=== PATIENT | female | born 1950 | race Caucasian/White ===

== ENCOUNTER 2017-11-25 10:40 | Inpatient (IN) | payer MEDICARE, BC ==
[2017-11-25] VITALS (9 sets, daily range): BP systolic 111–141; BP diastolic 58–72; PULSE 80–84; RESP 16–22; TEMP 98.6–99.3; O2SAT 97–100
[2017-11-25] MEDS ORDERED: RESP: ALBUTEROL 2.5 MG/IPRATROPIUM 0.5 MG NEB (PRN) INH (16:45)
[2017-11-25] MEDS ORDERED: CHLORHEXIDINE GLUCONATE 2 % 1 PACK (2 CLOTHS) TOP PRN (16:45)
[2017-11-25] MEDS ORDERED: NURSING INFORMATION XX SCH (16:45)
--- NOTE | 2017-11-25 16:53 | HHI.HP ---
HPI Service Critical Care Medicine Primary Care Physician Unknown Admission Diagnosis Diagnosis: (1) Acute encephalopathy Diagnosis: Principal (2) Acute hypoxemic respiratory failure Diagnosis: Principal (3) COPD with acute exacerbation Diagnosis: Principal (4) CHF (congestive heart failure) Diagnosis: Principal (5) Sudural hygroma with probable acute hemorrhage Diagnosis: Principal (6) Coagulopathy Diagnosis: Principal Chief Complaint: Acute on chronic subdural hemorrhage/hygroma Acute encephalopathy Acute hypoxemic respiratory failure Travel History International Travel<30 Days: No Contact w/Intl Traveler <30 Da: No Traveled to Known Affected Are: No History of Present Illness Patient is a 67-year-old female with past medical history significant for COPD, end-stage renal disease, history of atrial fibrillation, history of upper extremity DVT, CHF, diabetes, who was brought to the [facility] emergency department for generalized weakness ongoing for a month and increasing shortness of breath. She underwent workup for altered mentation which showed bilateral chronic subdural hygromas with a possible acute hemorrhage. Transferred to [facility] for further evaluation and treatment with neurosurgery consultation. Apparently patient was hypoxemic at [place], ABG pH 7.296 PCO2 38.7, oxygen saturation was 84 and a PO2 of 54. Patient was placed on 50% nonrebreather for transportation. Also patient was on Coumadin until several days ago, for upper extremity DVT. Her INR was as high as 5 at that time and Coumadin was held. Once it came down to less than 1.7 patient was started on Eliquis. With CT showing SDH patient was given K Centra before transfer. I evaluated the patient immediately after arrival to the [place] ICU. Patient was somnolent but wakes up and follows basic commands, he was oriented only to person with some garbled speech. However patient appeared to be in moderate to severe respiratory distress with labored breathing. Evidently air entry was significantly diminished bilaterally indicating COPD exacerbation/CHF. She was quite tachypneic and patient was intubated and placed on mechanical ventilation. Patient also showed twitching of the bilateral upper extremity with jerking movements prior to intubation. I reviewed the CT of the head from [facility] with . And appears to show chronic subdural hygroma versus subdural hematoma, with some probable acute blood on the left side. Chest x-ray shows pulmonary vascular congestion. Patient will be started on emergency dialysis as have already contacted nephrology. After dialysis patient will be sent for a CT of the head and also CT of the neck as the patient has a large ecchymosis involving the anterior upper neck and anterior chin. Review of Systems ROS Limitations: Altered Mental Status Past Family Social History Allergies: Coded Allergies: Sulfa (Sulfonamide Antibiotics) (Verified Allergy, Unknown, 11/25/17) gabapentin (Verified Allergy, Unknown, 11/25/17) metoclopramide (Verified Allergy, Unknown, 11/25/17) morphine (Verified Allergy, Unknown, 11/25/17) Past Medical History COPD CHF End-stage renal disease on hemodialysis Upper extremity DVT Morbid obesity Type 2 diabetes Atrial fibrillation per transfer history Dyslipidemia Hypertension Past Surgical History Appendectomy Cholecystectomy Tonsillectomy Hysterectomy Dialysis access placement Reported Medications Lipitor Vitamin D3 Fish oil Requip Renvela Valsartan [place] Carvedilol Lasix Wellbutrin Lantus insulin Fosrenol Norvasc Lovaza Duloxetine Venlafaxine Lyrica Active Ordered Medications Reviewed Family History Unable to obtain at this time Social History Unable to obtain at this time Physical Exam Physical Exam GENERAL: 67 year old well-nourished, well-developed patient who is in obvious respiratory distress, tachypneic SKIN: Upper neck and chin with large ecchymoses. Chronic venous stasis changes in the lower extremities. HEAD: Atraumatic. Normocephalic. EYES: Pupils equal round and reactive. Extraocular motions intact. No scleral icterus. ENT: Nose without bleeding, airway patent. Dried blood on the lips, but none inside the mouth. Uvula midline. Airway patent. NECK: Trachea midline. Cannot appreciate JVD. Supple, nontender. Ecchymoses anterior upper neck. CARDIOVASCULAR: Tachycardic rate and rhythm without murmurs, gallops, or rubs. Heart sounds are distant RESPIRATORY: Breath sounds equal bilaterally but significantly diminished. Expiratory wheezes + GASTROINTESTINAL: Abdomen distended, tympanic. No hepato-splenomegaly, but exam limited by morbid obesity MUSCULOSKELETAL: Extremities Chronic venous stasis changes in the lower extremities. NEUROLOGICAL: Somnolent but wakes, able to state name, not oriented to time or place. Motor grossly within normal limits. Follows commands upper and lower extremities Imaging CT at [facility] showed small bilateral SDH Septic Shock Reassessment Septic shock perfusion: reassessment completed Caprini VTE Risk Assessment Caprini VTE Risk Assessment: Mod/High Risk (score >= 2) VTE Pharm Contraindication: Hemorrhage Caprini Risk Assessment Model Point Value = 1 Point Value = 2 Point Value = 3 Point Value = 5 Age 41-60 Minor surgery BMI > 25 kg/m2 Swollen legs Varicose veins or History of unexplained or recurrent spontaneous Oral contraceptives or hormone replacement Sepsis (< 1 month) Serious lung disease, including pneumonia (< 1 month) Abnormal pulmonary function Acute myocardial infarction Congestive heart failure (< 1 month) History of inflammatory bowel disease Medical patient at bed rest Age 61-74 Arthroscopic surgery Major open surgery (> 45 min) Laparoscopic surgery (> 45 min) Malignancy Confined to bed (> 72 hours) Immobilizing plaster cast Central venous access Age >= 75 History of VTE Family history of VTE Factor V Leiden Prothrombin [id number] Lupus anticoagulant Anticardiolipin antibodies Elevated serum homocysteine Heparin-induced thrombocytopenia Other congenital or acquired thrombophilia Stroke (< 1 month) Elective arthroplasty Hip, pelvis, or leg fracture Acute spinal cord injury (< 1 month) Prophylaxis Regimen Total Risk Factor Score Risk Level Prophylaxis Regimen 0-1 Low Early ambulation 2 Moderate Order ONE of the following: *Sequential Compression Device (SCD) *Heparin 5000 units SQ BID 3-4 Higher Order ONE of the following medications: *Heparin 5000 units SQ TID *Enoxaparin/Lovenox 40 mg SQ daily (WT < 150 kg, CrCl > 30 mL/min) *Enoxaparin/Lovenox 30 mg SQ daily (WT < 150 kg, CrCl > 10-29 mL/min) *Enoxaparin/Lovenox 30 mg SQ BID (WT < 150 kg, CrCl > 30 mL/min) AND/OR *Sequential Compression Device (SCD) 5 or more Highest Order ONE of the following medications: *Heparin 5000 units SQ TID (Preferred with Epidurals) *Enoxaparin/Lovenox 40 mg SQ daily (WT < 150 kg, CrCl > 30 mL/min) *Enoxaparin/Lovenox 30 mg SQ daily (WT < 150 kg, CrCl > 10-29 mL/min) *Enoxaparin/Lovenox 30 mg SQ BID (WT < 150 kg, CrCl > 30 mL/min) AND *Sequential Compression Device (SCD) Assessment and Plan Assessment and Plan NEURO: Chronic subdural hygroma versus subdural hemorrhage, with probable acute component Acute encephalopathy most likely metabolic History of depression -CT of the head reviewed with neurosurgery Dr. Luz -Repeat CT of the head and neck after HD completed -EEG to rule out seizures -Mental status change may be due to a combination of subdural hematoma and hypercapnia -Hold all her home antidepressants and pain medications -Target serum sodium more than 145-we will discuss with nephrology -Propofol for sedation and vent synchrony after intubation RESP: Acute hypoxemic and hypercapnic respiratory failure Acute COPD exacerbation History of COPD -Emergently intubated and placed on mechanical ventilation PRVC 16/550/10/100% -DuoNeb every 6 hours scheduled and as needed -Start IV Solu-Medrol 40 mg every 8 hours -Empiric antibiotics with cefepime, check sputum culture CV: CHF with exacerbation History of atrial fibrillation History of hypertension -Fluid removal with hemodialysis -Labetalol as needed to keep systolic blood pressure less than 150 -Repeat chest x-ray in a.m. -Hold home antihypertensives at this time GI: -N.p.o., IV famotidine -Insert NG tube : End-stage renal disease on hemodialysis -Nephrology consulted for stat Dialysis, Dr. Sutherland -Follow-up CBC and CMP after dialysis ID: -Check sputum culture, blood culture -Empiric cefepime for COPD exacerbation HEME: History of upper extremity DVT -Previously on Coumadin recently on Eliquis -Received K Centra due to subdural hemorrhage -Check PT PTT -Check ultrasound of upper and lower extremities ENDO: Type 2 diabetes -Electrolyte replacement per protocol -Sliding scale insulin PROPH: -Bilateral lower extremity SCDs/RAJAT. Chemical DVT prophylaxis contraindicated. IV famotidine LINES: -Patient has right femoral central line placed at [facility] CC time 82 min Code Status Full Discussed Condition With Melani Rosas MD November 25, 2017 16:53
[2017-11-25] MEDS ORDERED: ETOMIDATE 40 MG/20 ML VIAL ONE (17:03)
[2017-11-25] MEDS ORDERED: MIDAZOLAM HCL 5 MG/ML VIAL (1 ML) ONE ×2 (17:03→17:04)
[2017-11-25] MEDS ORDERED: ROCURONIUM INJ 50 MG/5 ML VIAL ONE (17:04)
[2017-11-25] MEDS ORDERED: PROPOFOL 500 MG/50 ML INJ 50 ML ONE (17:16)
--- NOTE | 2017-11-25 17:25 | PD.CONS ---
History of Present Illness Service Neurosurgery Consult Requested By [employer] Worker Reason for Consult Bilateral subdural hygromas versus chronic subdural hemorrhage Primary Care Physician Unknown Diagnoses: History of Present Illness 67-year-old female with past medical history significant for COPD, end-stage renal disease, history of atrial fibrillation, history of upper extremity DVT, CHF, diabetes who was brought to the [facility] emergency department for generalized weakness ongoing for a month and increasing shortness of breath. She underwent workup for altered mentation which showed bilateral chronic subdural hygromas with a possible acute hemorrhage. Request to transfer to [facility] for further evaluation and treatment with neurosurgery consultation. Apparently patient was hypoxemic on ABG pH 7.296 PCO2 38.7, oxygen saturation was 84 and a PO2 of 54. Patient was placed on 50% nonrebreather for transportation and equipment service lead intubated the patient after arrival due to respiratory distress. I was able to evaluate her prior to her intubation and she was opening her eyes and following commands. Review of Systems ROS Limitations: Altered Mental Status, Poor Historian Respiratory: COMPLAINS OF: Shortness of breath Cardiovascular: COMPLAINS OF: Lower Extremity Edema, Orthopnea Hematologic/lymphatic: COMPLAINS OF: Bruising Past Family Social History Allergies: Coded Allergies: Sulfa (Sulfonamide Antibiotics) (Verified Allergy, Unknown, 11/25/17) gabapentin (Verified Allergy, Unknown, 11/25/17) metoclopramide (Verified Allergy, Unknown, 11/25/17) morphine (Verified Allergy, Unknown, 11/25/17) Past Medical History COPD, end-stage renal disease, history of atrial fibrillation, history of upper extremity DVT, CHF, diabetes Past Surgical History Appendectomy Cholecystectomy Tonsillectomy Hysterectomy Dialysis access placement Reported Medications Lipitor Vitamin D3 Fish oil Requip Renvela Valsartan [place] Carvedilol Lasix Wellbutrin Lantus insulin Fosrenol Norvasc Lovaza Duloxetine Venlafaxine Lyrica Active Ordered Medications Current Medications Medications (Trade) Dose Ordered Sig/Joseph Route PRN Reason Start Time Stop Time Status Last Admin Dose Admin Famotidine (Pepcid Inj) 20 mg Q12HR IV PUSH 11/25/17 21:00 Albuterol/ Ipratropium (Duoneb Neb) 1 ampule Q6HR NEB INH 11/25/17 22:00 Albuterol/ Ipratropium (Duoneb Neb) 1 ampule Q2HR NEB PRN INH WHEEZING 11/25/17 16:45 Miscellaneous Information ([facility]) 1 Q361D XX 11/25/17 16:45 Chlorhexidine Gluconate (Chlorhexidine 2% Cloth) 3 pack Taper DAILY@04 TOP 11/26/17 04:00 11/22/18 03:59 Chlorhexidine Gluconate (Chlorhexidine 2% Cloth) 3 pack UNSCH PRN TOP HYGIENIC CARE 11/25/17 16:45 Chlorhexidine Gluconate (Peridex 0.12% Liq) 15 ml BID@08,20 MT 11/25/17 20:00 UNV Propofol 100 ml @ 0 mls/hr TITRATE PRN IV SEDATION 11/25/17 17:30 UNV Methylprednisolone Sodium Succinate (SoluMEDROL INJ) 40 mg Q8HR IV PUSH 11/25/17 18:00 UNV Cefepime HCl 1000 mg/Sodium Chloride 100 ml @ 200 mls/hr Q12H IV 11/25/17 18:00 UNV Insulin Aspart (NovoLOG SUPPLEMENTAL SCALE) 1 Q4H SQ 11/25/17 18:15 UNV Physical Exam Physical Exam GENERAL: This is a well-nourished, well-developed patient who is alert although in respiratory distress. SKIN: Ecchymosis in the anterior portion of the neck and chin along with the abdomen and chronic peripheral vascular changes in the lower extremities. HEAD: Atraumatic. Normocephalic. No temporal or scalp tenderness. EYES: Pupils equal round and reactive. Extraocular motions intact. No scleral icterus. No injection or drainage. ENT: Nose without bleeding, purulent drainage or septal hematoma. Dried bloody lips, throat without erythema, tonsillar hypertrophy or exudate. Uvula midline. Airway patent. NECK: Trachea midline. No JVD or lymphadenopathy. Supple, nontender, no meningeal signs. Extensive bruising in the anterior portion of the neck. CARDIOVASCULAR: Tachycardic without murmurs, gallops, or rubs. RESPIRATORY: Tachypneic. Breath sounds equal bilaterally. No wheezes, rales, or rhonchi. GASTROINTESTINAL: Abdomen soft but very distended. No guarding. MUSCULOSKELETAL: Extremities with significant edema and chronic ischemic changes in legs. Negative Homans sign bilaterally. NEUROLOGICAL: Awake and alert. Cranial nerves II through XII intact. Motor and sensory grossly within normal limits. Five out of 5 muscle strength in all muscle groups. Dysarthric speech. Assessment and Plan Assessment and Plan Bilateral small subdural hygromas versus chronic subdural hemorrhages. Recommend observation with a repeat CT scan of the head once medically stable. Discussed with equipment service lead Dr. Almanza. Nehemias Luz MD November 25, 2017 17:25
[2017-11-25] MEDS ORDERED: PROPOFOL 1000 MG/100 ML INJ 100 ML IV PRN (17:30)
--- NOTE | 2017-11-25 17:44 | PD.PROCEDR ---
Procedure Note Procedure Emergency intubation for altered mentation and acute hypoxemic and hypercarbic respiratory failure: INTUBATION: The patient was put in optimal position for the procedure. Rapid sequence intubation was initiated by me using 20 milligrams of etomidate IV and 10 milligrams of Versed IV. Direct laryngoscopy with MAC 4 blade grade 1 view single attempt. The patient was intubated with a 8.0 cuffed endotracheal tube. Tube placement was confirmed by visualization of the tube and balloon passing through the cords, capnometry and subsequent chest x-ray. Breath sounds were equal and well aerated bilaterally postintubation. No breath sounds over stomach. Patient tolerated procedure well. CXR pending Melani Almanza MD November 25, 2017 17:44
--- NOTE | 2017-11-25 17:53 | RADRPT ---
EXAM DATE/TIME: 11/25/2017 17:35 [facility] COMPARISON: No previous studies available for comparison. INDICATIONS : Respiratory distress. MEDICAL HISTORY : Dialysis. SURGICAL HISTORY : Dialysis catheter. ENCOUNTER: Initial ACUITY: 1 day PAIN SCORE: Non-responsive. LOCATION: Bilateral chest FINDINGS: The tip of the endotracheal tube is at the orifice of the right mainstem bronchus. Recommend pull lyubov k ET tube 3 to 4 cm. There is an NG tube in the stomach. No evidence of pneumothorax. Right-sided jami tral line in place. The lungs are grossly clear. Heart size is mildly enlarged. The bony structures a re grossly intact. CONCLUSION: 1. Tip of ET tube is in the orifice of the right mainstem bronchus. Pullback ET tube 3-4 cm. 2. No pneumothorax. Rogelio Cline MD on November 25, 2017 at 17:49 Board Certified Radiologist. This report was verified electronically.
[2017-11-25] MEDS: methylPREDNISolone SOD SUCC 40 MG/1 ML VIAL IV PUSH SCH (18:00)
[2017-11-25 18:40] LABS: HEMATOCRIT 27.5 % (35.0-46.0); HEMOGLOBIN 9.1 GM/DL (11.6-15.3); MEAN CELL VOLUME 95.1 FL (80.0-100.0); MEAN CORPUSCULAR HEMOGLOBIN 31.3 PG (27.0-34.0); MEAN CORPUSCULAR HGB CONC 32.9 % (32.0-36.0); MEAN PLATELET VOLUME 8.1 FL (7.0-11.0); PLATELET COUNT 241 TH/MM3 (150-450); RED CELL DISTRIBUTION WIDTH 15.2 % (11.6-17.2); WHITE BLOOD COUNT 11.9 TH/MM3 (4.0-11.0)
[2017-11-25 18:45] LABS: ALBUMIN 3.9 GM/DL (3.4-5.0); AST (GOT) 21 U/L (15-37); BICARBONATE 26.6 MEQ/L (21.0-32.0); BLOOD UREA NITROGEN 36 MG/DL (7-18); CALCIUM 8.3 MG/DL (8.5-10.1); CHLORIDE 103 MEQ/L (98-107); CREATININE 5.72 MG/DL (0.50-1.00); GLOMERULAR FILTRATION RATE 7 ML/MIN (>89); GLUCOSE,RANDOM 183 MG/DL (74-106); MAGNESIUM 2.3 MG/DL (1.5-2.5); SODIUM (NA) 142 MEQ/L (136-145)
[2017-11-25 18:46] LABS: ALT (GPT) 19 U/L (10-53)
[2017-11-25 18:49] LABS: ALKALINE PHOSPHATASE 79 U/L (45-117); TOTAL BILIRUBIN ADULT 0.5 MG/DL (0.2-1.0); TOTAL PROTEIN 6.7 GM/DL (6.4-8.2)
[2017-11-25 18:52] LABS: INTERNATIONAL NORMALIZED RATIO 1.4 RATIO; PROTHROMBIN TIME - PATIENT 14.3 SEC (9.8-11.6)
[2017-11-25] MEDS ORDERED: SODIUM CHLORIDE 0.9% FLUSH 10 ML FLUSH IV FLUSH PRN (19:30)
[2017-11-25] MEDS ORDERED: HEPARIN SODIUM - IV 10,000 UNITS/10 ML VIAL OTHER PRN (19:30)
[2017-11-25] MEDS ORDERED: HEPARIN SODIUM - IV 10,000 UNITS/10 ML VIAL IV FLUSH PRN (19:30)
[2017-11-25] MEDS ORDERED: MANNITOL 12.5 GM/50 ML VIAL IV PUSH PRN (19:30)
[2017-11-25] MEDS ORDERED: ALBUMIN 25% 25 GM/100 ML BAG IV PRN (19:30)
[2017-11-25] MEDS ORDERED: NITROGLYCERIN 0.4 MG SL 25 TABS/BTL SL PRN (19:30)
[2017-11-25] MEDS ORDERED: GELATIN 12 MM/7 MM FOAM TOPICAL PRN (19:30)
[2017-11-25] MEDS ORDERED: diphenhydrAMINE HCL 25 MG CAP PO PRN (19:30)
[2017-11-25] MEDS ORDERED: cloNIDine HCL 0.1 MG TAB PO PRN (19:30)
[2017-11-25] MEDS ORDERED: NS 250 ML IV PRN (19:30)
[2017-11-25] MEDS ORDERED: ACETAMINOPHEN 325 MG TAB PO PRN (19:30)
[2017-11-25] MEDS ORDERED: SODIUM CHLOR 0.9% 1000 ML OTHER PRN ×2 (19:30)
[2017-11-25] MEDS: INSULIN ASPART SUPPLEMENTAL SCALE SQ SCH (20:00)
[2017-11-25] MEDS: CEFEPIME INJ 1,000 MG in SODIUM CHLORIDE 0.9% INJ 100 ML IV SCH (20:00)
[2017-11-25] MEDS: CHLORHEXIDINE 0.12% (ORAL KIT) 15 ML CUP MT SCH (20:00)
[2017-11-25] MEDS: RESP: ALBUTEROL 2.5 MG/IPRATROPIUM 0.5 MG NEB (SCH) INH (20:08)
[2017-11-25] MEDS: FAMOTIDINE 20 MG/2 ML VIAL IV PUSH SCH (21:00)
[2017-11-25] MEDS ORDERED: fentaNYL 2,500 MCG/NS 250 ML IV PRN (21:45)
[2017-11-25] MEDS ORDERED: RASS Change Order XX ONE (21:45)
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
[2017-11-26] VITALS (16 sets, daily range): BP systolic 117–161; BP diastolic 56–77; PULSE 67–92; RESP 16–32; TEMP 98.9–99.8; O2SAT 96–100
[2017-11-26] MEDS: RESP: ALBUTEROL 2.5 MG/IPRATROPIUM 0.5 MG NEB (SCH) INH ×4 (02:20→21:50)
[2017-11-26] MEDS: methylPREDNISolone SOD SUCC 40 MG/1 ML VIAL IV PUSH SCH ×3 (02:48→18:33)
[2017-11-26] MEDS: PROPOFOL 1000 MG/100 ML INJ 100 ML IV PRN ×3 (02:48→09:12)
[2017-11-26 03:33] LABS: AUTOMATED NEUTROPHIL # 7.6 TH/MM3 (1.8-7.7); BASOPHIL % 0.3 % (0.0-2.0); HEMATOCRIT 26.3 % (35.0-46.0); LYMPH % 5.3 % (9.0-44.0); LYMPHOCYTE # 0.4 TH/MM3 (1.0-4.8); MEAN CELL VOLUME 94.6 FL (80.0-100.0); MEAN CORPUSCULAR HEMOGLOBIN 32.5 PG (27.0-34.0); MEAN CORPUSCULAR HGB CONC 34.4 % (32.0-36.0); MEAN PLATELET VOLUME 8.2 FL (7.0-11.0); MONO % 2.5 % (0.0-8.0); MONOCYTE # 0.2 TH/MM3 (0-0.9); NEUT % 91.9 % (16.0-70.0); PLATELET COUNT 207 TH/MM3 (150-450); RED BLOOD COUNT 2.78 MIL/MM3 (4.00-5.30); WHITE BLOOD COUNT 8.3 TH/MM3 (4.0-11.0)
[2017-11-26] MEDS: INSULIN ASPART SUPPLEMENTAL SCALE SQ SCH ×6 (04:00→20:00)
[2017-11-26] MEDS: CHLORHEXIDINE GLUCONATE 2 % 1 PACK (2 CLOTHS) TOP SCH (04:00)
[2017-11-26 04:11] LABS: ALBUMIN 3.6 GM/DL (3.4-5.0); ALKALINE PHOSPHATASE 70 U/L (45-117); ALT (GPT) 18 U/L (10-53); AST (GOT) 19 U/L (15-37); BICARBONATE 21.8 MEQ/L (21.0-32.0); BLOOD UREA NITROGEN 33 MG/DL (7-18); CHLORIDE 100 MEQ/L (98-107); CREATININE 4.61 MG/DL (0.50-1.00); GLOMERULAR FILTRATION RATE 9 ML/MIN (>89); GLUCOSE,RANDOM 244 MG/DL (74-106); MAGNESIUM 2.3 MG/DL (1.5-2.5); SODIUM (NA) 140 MEQ/L (136-145); TOTAL BILIRUBIN ADULT 0.7 MG/DL (0.2-1.0); TOTAL PROTEIN 6.6 GM/DL (6.4-8.2)
[2017-11-26] MEDS: CHLORHEXIDINE 0.12% (ORAL KIT) 15 ML CUP MT SCH ×2 (08:00→22:34)
[2017-11-26] MEDS: FAMOTIDINE 20 MG/2 ML VIAL IV PUSH SCH ×2 (09:11→22:36)
[2017-11-26] MEDS: CEFEPIME INJ 1,000 MG in SODIUM CHLORIDE 0.9% INJ 100 ML IV SCH ×2 (09:12→20:00)
--- NOTE | 2017-11-26 10:51 | HHI.NSPN ---
(Jose Beckett) History Chief Complaint: Bilateral subdural hygromas. (Jose Beckett) Interval History Patient is a 67-year-old female with past medical history significant for COPD, end-stage renal disease, history of atrial fibrillation, history of upper extremity DVT, CHF, diabetes who was brought to the [facility] emergency department for generalized weakness ongoing for a month and increasing shortness of breath. She underwent workup for altered mentation which showed bilateral chronic subdural hygromas with a possible acute hemorrhage. Request to transfer to [facility] for further evaluation and treatment with neurosurgery consultation. Apparently patient was hypoxemic on ABG pH 7.296 PCO2 38.7, oxygen saturation was 84 and a PO2 of 54. Patient was placed on 50% nonrebreather for transportation (per critical care note) 11/26/17: Pt sedated on Diprivan and Fentanyl drips. Held for exam. She opens her eyes to voice and gets very agitated with shaking in extremities. She is not following commands. (Jose Beckett) System Review Comments Not able to obtain given clinical condition. (Jose Beckett) Exam Results Vital Signs Date Time Temp Pulse Resp B/P (MAP) Pulse Ox O2 Delivery O2 Flow Rate FiO2 11/26/17 08:26 100 40 11/26/17 07:00 Mechanical Ventilator 11/26/17 06:00 72 11/26/17 04:00 99.5 16 123/56 (78) Intake and Output 11/26/17 11/26/17 11/27/17 08:00 16:00 00:00 Output Total 800 ml Balance -800 ml (Jose Beckett) Physical Examination General: Pt sedated on Diprivan and Fentanyl drips held and has periods of agitation. Eyes: Pupils 3mm bilaterally reactive bilaterally. Resp: Intubated. CTA bilaterally. Heart: Mild tachycardia low 100s. Abd: Distended but soft. Positive bs Skin: No cyanosis or erythema. Muscle: Moves all 4 extremities spontaneously and agitated. She eventually was following commands for RN. Neuro: Pt sedated on Diprivan and Fentanyl drips. Pt opens eyes to voice. She gets very agitated. She eventually follows commands when off sedation long enough. (Jose Beckett) Lab, Micro, Other Results Last Impressions Neck CT 11/25/17 0000 Signed Impressions: Service Date/Time: Saturday, November 25, 2017 22:21 - CONCLUSION: 1. Endotracheal tube in the right mainstem bronchus. This should be retracted. 2. Small thyroid nodules. Jose Zhao MD Head CT 11/25/17 0000 Signed Impressions: Service Date/Time: Saturday, November 25, 2017 22:21 - CONCLUSION: 1. Small bilateral extra-axial fluid collections could be chronic subdural hematomas. Minimal acute blood products seen posteriorly on the left. 2. No midline shift or mass effect. Jose Zhao MD Chest X-Ray 11/25/17 0000 Signed Impressions: Service Date/Time: Saturday, November 25, 2017 17:35 - CONCLUSION: 1. Tip of ET tube is in the orifice of the right mainstem bronchus. Pullback ET tube 3-4 cm. 2. No pneumothorax. Rogelio Cline MD Laboratory Tests Test 11/25/17 17:45 11/25/17 17:51 11/25/17 17:55 11/25/17 18:15 Prothrombin Time 14.3 SEC Prothromb Time International Ratio 1.4 RATIO Activated Partial Thromboplast Time 25.2 SEC White Blood Count 11.9 TH/MM3 Red Blood Count 2.90 MIL/MM3 Hemoglobin 9.1 GM/DL Hematocrit 27.5 % Mean Corpuscular Volume 95.1 FL Mean Corpuscular Hemoglobin 31.3 PG Mean Corpuscular Hemoglobin Concent 32.9 % Red Cell Distribution Width 15.2 % Platelet Count 241 TH/MM3 Mean Platelet Volume 8.1 FL Blood Gas Puncture Site RT RADIAL Blood Gas Patient Temperature 98.6 Blood Gas HCO3 24 mmol/L Blood Gas Base Excess -1.1 mmol/L Blood Gas Oxygen Saturation 97 % Arterial Blood pH 7.34 Arterial Blood Partial Pressure CO2 45 mmHg Arterial Blood Partial Pressure O2 306 mmHg Arterial Blood Oxygen Content 13.3 Vol % Arterial Blood Carboxyhemoglobin 1.7 % Arterial Blood Methemoglobin 1.3 % Blood Gas Hemoglobin 9.2 G/DL Oxygen Delivery Device VENTILATOR Blood Gas Ventilator Setting 16/600/+5 Blood Gas Inspired Oxygen 100 % Blood Urea Nitrogen 36 MG/DL Creatinine 5.72 MG/DL Random Glucose 183 MG/DL Total Protein 6.7 GM/DL Albumin 3.9 GM/DL Calcium Level 8.3 MG/DL Phosphorus Level 3.0 MG/DL Magnesium Level 2.3 MG/DL Alkaline Phosphatase 79 U/L Aspartate Amino Transf (AST/SGOT) 21 U/L Alanine Aminotransferase (ALT/SGPT) 19 U/L Total Bilirubin 0.5 MG/DL Sodium Level 142 MEQ/L Potassium Level 3.8 MEQ/L Chloride Level 103 MEQ/L Carbon Dioxide Level 26.6 MEQ/L Anion Gap 12 MEQ/L Estimat Glomerular Filtration Rate 7 ML/MIN Hepatitis A IgM Antibody NONREACTIVE Hepatitis B Surface Antigen NONREACTIVE Hepatitis B Core IgM Antibody NONREACTIVE Hepatitis C IgG Antibody NONREACTIVE Test 11/26/17 02:53 11/26/17 04:35 White Blood Count 8.3 TH/MM3 Red Blood Count 2.78 MIL/MM3 Hemoglobin 9.0 GM/DL Hematocrit 26.3 % Mean Corpuscular Volume 94.6 FL Mean Corpuscular Hemoglobin 32.5 PG Mean Corpuscular Hemoglobin Concent 34.4 % Red Cell Distribution Width 15.0 % Platelet Count 207 TH/MM3 Mean Platelet Volume 8.2 FL Neutrophils (%) (Auto) 91.9 % Lymphocytes (%) (Auto) 5.3 % Monocytes (%) (Auto) 2.5 % Eosinophils (%) (Auto) 0.0 % Basophils (%) (Auto) 0.3 % Neutrophils # (Auto) 7.6 TH/MM3 Lymphocytes # (Auto) 0.4 TH/MM3 Monocytes # (Auto) 0.2 TH/MM3 Eosinophils # (Auto) 0.0 TH/MM3 Basophils # (Auto) 0.0 TH/MM3 CBC Comment DIFF FINAL Differential Comment Blood Urea Nitrogen 33 MG/DL Creatinine 4.61 MG/DL Random Glucose 244 MG/DL Total Protein 6.6 GM/DL Albumin 3.6 GM/DL Calcium Level 8.0 MG/DL Magnesium Level 2.3 MG/DL Alkaline Phosphatase 70 U/L Aspartate Amino Transf (AST/SGOT) 19 U/L Alanine Aminotransferase (ALT/SGPT) 18 U/L Total Bilirubin 0.7 MG/DL Sodium Level 140 MEQ/L Potassium Level 3.8 MEQ/L Chloride Level 100 MEQ/L Carbon Dioxide Level 21.8 MEQ/L Anion Gap 18 MEQ/L Estimat Glomerular Filtration Rate 9 ML/MIN Blood Gas Puncture Site RT BRACHIAL Blood Gas Patient Temperature 98.6 Blood Gas HCO3 20 mmol/L Blood Gas Base Excess -2.8 mmol/L Blood Gas Oxygen Saturation 95 % Arterial Blood pH 7.47 Arterial Blood Partial Pressure CO2 28 mmHg Arterial Blood Partial Pressure O2 118 mmHg Arterial Blood Oxygen Content 11.2 Vol % Arterial Blood Carboxyhemoglobin 1.8 % Arterial Blood Methemoglobin 2.0 % Blood Gas Hemoglobin 8.3 G/DL Oxygen Delivery Device VENTILATOR Blood Gas Ventilator Setting 16/600/IT0.9/10PEEP Blood Gas Inspired Oxygen 40 % (Jose Beckett) Medical Decision Making Impression and Plan A: 67 y/o FM with bilateral small subdural hygromas versus chronic subdural hemorrhages. P: Continue to monitor Neuro exam. Continue with critical care Recommend observation with a repeat CT scan of the head once medically stable. (Jose Beckett) Attending Statement The exam, history, and the medical decision-making described in the above note were completed with the assistance of the mid-level provider. I reviewed and agree with the findings presented. I attest that I had a [id number] encounter with the patient on the same day, and personally performed and documented my assessment and findings in the medical record. Intubated on CPAP. Opens her eyes and tracks and follows commands readily in all 4 extremities. Follow-up CT scan of the head with small bilateral hygromas. Continue with nonsurgical management and supportive care. Discussed with nursing staff. (Nehemias Luz MD) Jose Beckett November 26, 2017 10:51 Nehemias Luz MD November 26, 2017 12:59
--- NOTE | 2017-11-26 11:37 | PD.CONS ---
HPI Service Nephrology Consult Requested By Reason for Consult ESRD Primary Care Physician Unknown History of Present Illness Ms. Wen was transferred from [facility] with subdural hygroma and possible acute bleed. She is currently on the ventilator, she follows verbal cues, and is oriented. She is on HD for ESRD. Has a failed/clotted AVF in the left arm. Dialysis through right IJ PermCath. Patient was dialyzed yesterday with removal of 2 liters of UF. Review of Systems ROS Limitations: Intubated Past Family Social History Allergies: Coded Allergies: Sulfa (Sulfonamide Antibiotics) (Verified Allergy, Unknown, 11/25/17) gabapentin (Verified Allergy, Unknown, 11/25/17) metoclopramide (Verified Allergy, Unknown, 11/25/17) morphine (Verified Allergy, Unknown, 11/25/17) Past Medical History COPD CHF End-stage renal disease on hemodialysis Upper extremity DVT Morbid obesity Type 2 diabetes Atrial fibrillation per transfer history Dyslipidemia Hypertension Past Surgical History Appendectomy Cholecystectomy Tonsillectomy Hysterectomy Dialysis access placement Reported Medications Lipitor Vitamin D3 Fish oil Requip Renvela Valsartan Gilbert Carvedilol Lasix Wellbutrin Lantus insulin Fosrenol Norvasc Lovaza Duloxetine Venlafaxine Lyrica Active Ordered Medications Current Medications Medications (Trade) Dose Ordered Sig/Joseph Route Start Time Stop Time Status Last Admin (Pepcid Inj) 20 mg Q12HR IV PUSH 11/25/17 21:00 11/26/17 09:11 (Duoneb Neb) 1 ampule Q6HR NEB INH 11/25/17 22:00 11/26/17 08:24 (Duoneb Neb) 1 ampule Q2HR NEB PRN INH 11/25/17 16:45 ([facility] Information) 1 Q361D XX 11/25/17 16:45 11/25/17 16:45 (Chlorhexidine 2% Cloth) 3 pack Taper DAILY@04 TOP 11/26/17 04:00 11/22/18 03:59 11/26/17 04:00 (Chlorhexidine 2% Cloth) 3 pack UNSCH PRN TOP 11/25/17 16:45 (Peridex 0.12% Liq) 15 ml BID@08,20 MT 11/25/17 20:00 11/26/17 08:00 (SoluMEDROL INJ) 40 mg Q8H IV PUSH 11/25/17 18:00 11/26/17 09:11 Cefepime HCl 1000 mg/Sodium Chloride 100 ml @ 200 mls/hr Q12H IV 11/25/17 20:00 11/26/17 09:12 (NovoLOG SUPPLEMENTAL SCALE) 1 Q4H SQ 11/25/17 20:00 11/26/17 08:00 Propofol 100 ml @ 3.39 mls/hr TITRATE PRN IV 11/25/17 19:00 11/26/17 09:12 Sodium Chloride 1,000 ml @ 0 mls/hr TITRATE PRN OTHER 11/25/17 19:30 (Heparin Inj) 8,000 units UNSCH PRN IV FLUSH 11/25/17 19:30 Sodium Chloride 1,000 ml @ 200 mls/hr Q5H PRN OTHER 11/25/17 19:30 Sodium Chloride 200 ml @ 0 mls/hr UNSCH PRN IV 11/25/17 19:30 (Mannitol Inj) 12.5 gm UNSCH PRN IV PUSH 11/25/17 19:30 Albumin Human 100 ml @ 60 mls/hr UNSCH PRN IV 11/25/17 19:30 (NS Flush) 5 ml UNSCH PRN IV FLUSH 11/25/17 19:30 (Heparin Inj) Dwell Heparin to f... UNSCH PRN OTHER 11/25/17 19:30 (Gentamicin Inj) 10 mg UNSCH PRN OTHER 11/25/17 19:30 (Gelfoam 12 Mm/7 Mm Top) 1 foam UNSCH PRN TOPICAL 11/25/17 19:30 (Zofran Inj) 4 mg UNSCH PRN IV PUSH 11/25/17 19:30 (Tylenol) 650 mg UNSCH X1 PRN PO 11/25/17 19:30 12/25/17 19:29 (Benadryl) 25 mg UNSCH PRN PO 11/25/17 19:30 (Nitrostat Sl) 0.4 mg UNSCH PRN SL 11/25/17 19:30 (Catapres) 0.1 mg UNSCH PRN PO 11/25/17 19:30 (Epogen Inj) 10,000 units UNSCH PRN IV PUSH 11/25/17 19:30 Fentanyl Citrate 250 ml @ 5 mls/hr TITRATE PRN IV 11/25/17 21:45 (Sodium Chloride) 1 gm Q8H PO 11/26/17 11:30 UNV Family History unable to obtain Social History Denies smoking. Lives in [place]. Physical Exam Vital Signs Vital Signs Date Time Temp Pulse Resp B/P (MAP) Pulse Ox O2 Delivery O2 Flow Rate FiO2 11/26/17 08:26 100 40 11/26/17 07:00 100 Mechanical Ventilator 40 11/26/17 06:00 72 11/26/17 04:26 99 40 11/26/17 04:00 99.5 84 16 123/56 (78) 100 11/26/17 04:00 40 11/26/17 04:00 84 11/26/17 02:00 90 11/26/17 00:00 99.8 73 16 129/61 (83) 99 11/26/17 00:00 82 11/26/17 00:00 40 11/25/17 23:45 100 40 11/25/17 22:45 100 40 11/25/17 22:15 100 100 11/25/17 22:00 80 11/25/17 20:16 97 50 11/25/17 20:00 82 11/25/17 20:00 40 11/25/17 19:00 99 Mechanical Ventilator 40 11/25/17 19:00 99.3 82 16 111/58 (75) 99 11/25/17 18:00 94 Venturi Mask 11/25/17 18:00 98.6 84 22 141/72 (95) 100 11/25/17 18:00 50 11/25/17 17:20 100 100 Physical Exam GENERAL: intubated, awake, alert, follows verbal cues. SKIN: Warm and dry. HEAD: Normocephalic. EYES: No scleral icterus. No injection or drainage. NECK: Supple, trachea midline. No JVD or lymphadenopathy. CARDIOVASCULAR: Regular rate and rhythm without murmurs, gallops, or rubs. RESPIRATORY: Breath sounds equal bilaterally. Vented breath sounds bilaterally heard. GASTROINTESTINAL: Abdomen soft, non-tender, nondistended. Obese. MUSCULOSKELETAL: No cyanosis, or edema. Laboratory Laboratory Tests Test 11/25/17 17:45 11/25/17 17:51 11/25/17 17:55 11/25/17 18:15 Prothrombin Time 14.3 Prothromb Time International Ratio 1.4 Activated Partial Thromboplast Time 25.2 White Blood Count 11.9 Red Blood Count 2.90 Hemoglobin 9.1 Hematocrit 27.5 Mean Corpuscular Volume 95.1 Mean Corpuscular Hemoglobin 31.3 Mean Corpuscular Hemoglobin Concent 32.9 Red Cell Distribution Width 15.2 Platelet Count 241 Mean Platelet Volume 8.1 Blood Gas Puncture Site RT RADIAL Blood Gas Patient Temperature 98.6 Blood Gas HCO3 24 Blood Gas Base Excess -1.1 Blood Gas Oxygen Saturation 97 Arterial Blood pH 7.34 Arterial Blood Partial Pressure CO2 45 Arterial Blood Partial Pressure O2 306 Arterial Blood Oxygen Content 13.3 Arterial Blood Carboxyhemoglobin 1.7 Arterial Blood Methemoglobin 1.3 Blood Gas Hemoglobin 9.2 Oxygen Delivery Device VENTILATOR Blood Gas Ventilator Setting 16/600/+5 Blood Gas Inspired Oxygen 100 Blood Urea Nitrogen 36 Creatinine 5.72 Random Glucose 183 Total Protein 6.7 Albumin 3.9 Calcium Level 8.3 Phosphorus Level 3.0 Magnesium Level 2.3 Alkaline Phosphatase 79 Aspartate Amino Transf (AST/SGOT) 21 Alanine Aminotransferase (ALT/SGPT) 19 Total Bilirubin 0.5 Sodium Level 142 Potassium Level 3.8 Chloride Level 103 Carbon Dioxide Level 26.6 Anion Gap 12 Estimat Glomerular Filtration Rate 7 Hepatitis A IgM Antibody NONREACTIVE Hepatitis B Surface Antigen NONREACTIVE Hepatitis B Core IgM Antibody NONREACTIVE Hepatitis C IgG Antibody NONREACTIVE Test 11/26/17 02:53 11/26/17 04:35 White Blood Count 8.3 Red Blood Count 2.78 Hemoglobin 9.0 Hematocrit 26.3 Mean Corpuscular Volume 94.6 Mean Corpuscular Hemoglobin 32.5 Mean Corpuscular Hemoglobin Concent 34.4 Red Cell Distribution Width 15.0 Platelet Count 207 Mean Platelet Volume 8.2 Neutrophils (%) (Auto) 91.9 Lymphocytes (%) (Auto) 5.3 Monocytes (%) (Auto) 2.5 Eosinophils (%) (Auto) 0.0 Basophils (%) (Auto) 0.3 Neutrophils # (Auto) 7.6 Lymphocytes # (Auto) 0.4 Monocytes # (Auto) 0.2 Eosinophils # (Auto) 0.0 Basophils # (Auto) 0.0 CBC Comment DIFF FINAL Differential Comment Blood Urea Nitrogen 33 Creatinine 4.61 Random Glucose 244 Total Protein 6.6 Albumin 3.6 Calcium Level 8.0 Magnesium Level 2.3 Alkaline Phosphatase 70 Aspartate Amino Transf (AST/SGOT) 19 Alanine Aminotransferase (ALT/SGPT) 18 Total Bilirubin 0.7 Sodium Level 140 Potassium Level 3.8 Chloride Level 100 Carbon Dioxide Level 21.8 Anion Gap 18 Estimat Glomerular Filtration Rate 9 Blood Gas Puncture Site RT BRACHIAL Blood Gas Patient Temperature 98.6 Blood Gas HCO3 20 Blood Gas Base Excess -2.8 Blood Gas Oxygen Saturation 95 Arterial Blood pH 7.47 Arterial Blood Partial Pressure CO2 28 Arterial Blood Partial Pressure O2 118 Arterial Blood Oxygen Content 11.2 Arterial Blood Carboxyhemoglobin 1.8 Arterial Blood Methemoglobin 2.0 Blood Gas Hemoglobin 8.3 Oxygen Delivery Device VENTILATOR Blood Gas Ventilator Setting 16/600/IT0.9/10PEEP Blood Gas Inspired Oxygen 40 Date/Time Source Procedure Growth Status 11/25/17 17:34 Blood Peripheral Aerobic Blood Culture - Preliminary NO GROWTH IN 1 DAY Resulted 11/25/17 17:34 Blood Peripheral Anaerobic Blood Culture - Preliminary NO GROWTH IN 1 DAY Resulted 11/25/17 18:40 Sputum Endotracheal Gram Stain - Final Resulted 11/25/17 18:40 Sputum Endotracheal Sputum Culture Pending Resulted Result Diagram: 11/26/17 0253 11/26/17 0253 Assessment and Plan Problem List: (1) ESRD (end stage renal disease) ICD Codes: N18.6 - End stage renal disease Plan: patient was dialyzed yesterday. She will be dialyzed MWF. Monitor fluid and electrolytes. Avoid Gadolinium. We will use higher sodium concentration in dialysate if needed to increase serum Na. This may stimulate thirst response, and so oral fluid intake will have to be restricted. (2) Sudural hygroma with probable acute hemorrhage Plan: Seen by neurosurgery. Apparently non surgical management. (3) COPD with acute exacerbation ICD Codes: J44.1 - Chronic obstructive pulmonary disease with (acute) exacerbation Plan: Bronchodilators. Currently on the ventilator. Possible extubation today. (4) CHF (congestive heart failure) ICD Codes: I50.9 - Heart failure, unspecified Plan: Consider echocardiogram. (5) Acute hypoxemic respiratory failure ICD Codes: J96.01 - Acute respiratory failure with hypoxia Plan: Improved. (6) Anemia ICD Codes: D64.9 - Anemia, unspecified Plan: Epogen with dialysis. Assessment and Plan Thanks for the consult. Jeovany Sutherland MD November 26, 2017 11:37
[2017-11-26] MEDS: SODIUM CHLORIDE 1 GRAM TAB PO SCH ×2 (12:30→22:39)
--- NOTE | 2017-11-26 12:37 | HHI.CCPN ---
Subjective Remarks/Hospital Course Patient is a 67-year-old female with past medical history significant for COPD, end-stage renal disease, history of atrial fibrillation, history of upper extremity DVT, CHF, diabetes, who was brought to the [facility] emergency department for generalized weakness ongoing for a month and increasing shortness of breath. She underwent workup for altered mentation which showed bilateral chronic subdural hygromas with a possible acute hemorrhage. Transferred to [facility] for further evaluation and treatment with neurosurgery consultation. Apparently patient was hypoxemic at [place], ABG pH 7.296 PCO2 38.7, oxygen saturation was 84 and a PO2 of 54. Patient was placed on 50% nonrebreather for transportation. Also patient was on Coumadin until several days ago, for upper extremity DVT. Her INR was as high as 5 at that time and Coumadin was held. Once it came down to less than 1.7 patient was started on Eliquis. With CT showing SDH patient was given K Centra before transfer. I evaluated the patient immediately after arrival to the [place] ICU. Patient was somnolent but wakes up and follows basic commands, he was oriented only to person with some garbled speech. However patient appeared to be in moderate to severe respiratory distress with labored breathing. Evidently air entry was significantly diminished bilaterally indicating COPD exacerbation/CHF. She was quite tachypneic and patient was intubated and placed on mechanical ventilation. Patient also showed twitching of the bilateral upper extremity with jerking movements prior to intubation. I reviewed the CT of the head from [facility] with . And appears to show chronic subdural hygroma versus subdural hematoma, with some probable acute blood on the left side. Chest x-ray shows pulmonary vascular congestion. Patient will be started on emergency dialysis as have already contacted nephrology. After dialysis patient will be sent for a CT of the head and also CT of the neck as the patient has a large ecchymosis involving the anterior upper neck and anterior chin. SUBJ: Patient remains intubated sedated. On sedation hold following commands. CT head yesterday showed bilateral small chronic subdural hemorrhage with some acute component on the left side. Patient had hemodialysis yesterday with 2.8 L of fluid removed Objective Vital Signs Date Time Temp Pulse Resp B/P (MAP) Pulse Ox O2 Delivery O2 Flow Rate FiO2 11/26/17 12:00 99.1 92 25 150/77 (101) 97 11/26/17 12:00 40 11/26/17 07:00 Mechanical Ventilator Intake and Output 11/26/17 11/26/17 11/27/17 08:00 16:00 00:00 Output Total 800 ml Balance -800 ml Result Diagram: 11/26/17 0253 11/26/17 0253 Other Results Laboratory Tests Test 11/25/17 17:55 11/26/17 04:35 Blood Gas Puncture Site RT RADIAL RT BRACHIAL Blood Gas Patient Temperature 98.6 98.6 Blood Gas HCO3 24 mmol/L (22-26) 20 mmol/L (22-26) Blood Gas Base Excess -1.1 mmol/L (-2-2) -2.8 mmol/L (-2-2) Blood Gas Oxygen Saturation 97 % (90-100) 95 % (90-100) Arterial Blood pH 7.34 (7.380-7.420) 7.47 (7.380-7.420) Arterial Blood Partial Pressure CO2 45 mmHg (38-42) 28 mmHg (38-42) Arterial Blood Partial Pressure O2 306 mmHg (61-120) 118 mmHg (61-120) Arterial Blood Oxygen Content 13.3 Vol % (12.0-20.0) 11.2 Vol % (12.0-20.0) Arterial Blood Carboxyhemoglobin 1.7 % (0-4) 1.8 % (0-4) Arterial Blood Methemoglobin 1.3 % (0-2) 2.0 % (0-2) Blood Gas Hemoglobin 9.2 G/DL (12.0-16.0) 8.3 G/DL (12.0-16.0) Oxygen Delivery Device VENTILATOR VENTILATOR Blood Gas Ventilator Setting 16/600/+5 16/600/IT0.9/10PEEP Blood Gas Inspired Oxygen 100 % 40 % Imaging CT at [facility] showed small bilateral SDH Objective Remarks GENERAL: 67 year old well-nourished, well-developed patient who is in obvious respiratory distress, tachypneic SKIN: Upper neck and chin with large ecchymoses. Chronic venous stasis changes in the lower extremities. HEAD: Atraumatic. Normocephalic. EYES: Pupils equal round and reactive. Extraocular motions intact. No scleral icterus. ENT: Nose without bleeding, airway patent. Dried blood on the lips. Orotracheally intubated NECK: Trachea midline. Cannot appreciate JVD. Ecchymoses anterior upper neck. CARDIOVASCULAR: Sinus rhythm without murmurs, gallops, or rubs. Heart sounds are distant RESPIRATORY: Breath sounds equal bilaterally but significantly diminished. Mild expiratory wheezes GASTROINTESTINAL: Abdomen distended, tympanic. No hepato-splenomegaly, but exam limited by morbid obesity MUSCULOSKELETAL: Extremities Chronic venous stasis changes in the lower extremities. NEUROLOGICAL: Somnolent but wakes, able to state name. Motor grossly within normal limits. Follows commands upper and lower extremities A/P Assessment and Plan NEURO: Chronic subdural hygroma versus hemorrhage, with acute component on left Acute encephalopathy most likely metabolic History of depression -CT of the head reviewed with neurosurgery Dr. Luz -Repeat CT of the head and neck -showed small bilateral subdural hemorrhage which is chronic with small left sided acute bleed -EEG to rule out seizures pending -Mental status change may be due to a combination of subdural hematoma and hypercapnia -Holding all her home antidepressants and pain medications -Target serum sodium more than 145-we will start sodium chloride tablet -Hold propofol for weaning trial RESP: Acute hypoxemic and hypercapnic respiratory failure Acute COPD exacerbation History of COPD -Emergently intubated and placed on mechanical ventilation PRVC 16/550/10/100% -DuoNeb every 6 hours scheduled and as needed -IV Solu-Medrol 40 mg every 8 hours -Empiric antibiotics with cefepime, check sputum culture -Initiate CPAP trials CV: CHF History of atrial fibrillation History of hypertension -Fluid removal with hemodialysis, 2.8L removed yesterday -Labetalol as needed to keep systolic blood pressure less than 150 -Hold home antihypertensives at this time GI: -N.p.o., IV famotidine -NG tube : End-stage renal disease on hemodialysis -Nephrology Dr. Sutherland, 2.8L removed yesterday -Follow-up CBC and CMP after dialysis ID: -F/u sputum culture, blood culture -Empiric cefepime for COPD exacerbation HEME: History of upper extremity DVT -Previously on Coumadin recently on Eliquis -Received K Centra due to subdural hemorrhage -F/u PT PTT -Check ultrasound of upper and lower extremities ENDO: Type 2 diabetes -Electrolyte replacement per protocol -Sliding scale insulin PROPH: -Bilateral lower extremity SCDs/RAJAT. Chemical DVT prophylaxis contraindicated. IV famotidine LINES: -Patient has right femoral central line placed at [facility] CC time 42 min At this time he remains critically ill with altered mental status respiratory failure and acute on chronic subdural hemorrhage. Patient is critical but stable even though there is high risk of decompensation. We will continue ICU care Melani Almanza MD November 26, 2017 12:37
[2017-11-26] MEDS ORDERED: VANCOMYCIN INJ 1,000 MG in SODIUM CHLOR 0.9% 250 ML INJ 250 ML IV ONE (14:15)
--- NOTE | 2017-11-26 16:31 | RADRPT ---
EXAM DATE/TIME: 11/26/2017 12:56 [facility] COMPARISON: No previous studies available for comparison. INDICATIONS : Bilateral leg swelling. MEDICAL HISTORY : Congestive heart failure. Chronic obstructive pulmonary disease. Deep venous thrombosis. End stage re nal disease. Atrial fibrillation. Diabetes. SURGICAL HISTORY : Appendectomy.Cholecystectomy. Hysterectomy.Tonsillectomy. Dialysis access placement. ENCOUNTER: Initial ACUITY: 1 day PAIN SCORE: 0/10 LOCATION: Bilateral legs. TECHNIQUE: Venous ultrasound of the left and right leg was performed from the inguinal ligament to the proximal calf. Real-time, color Doppler and spectral tracing, compression and augmentation techniques were us ed. FINDINGS: RIGHT LEG: Deep venous system is compressible in the thigh and there is augmentation of flow seen in the thigh. There is flow seen in the popliteal region, but cannot confirm the presence of augmentation. There is limited flow the posterior tibial vein and noncompressibility. LEFT LEG: There is normal compressibility of the deep venous system from the inguinal region to the proximal ca lf. No echogenic clot is seen in the lumen of the common femoral, femoral, popliteal, and posterior tibial veins. There is a normal response of the venous system to proximal and distal augmentation an d respiration. CONCLUSION: 1. Positive for deep venous thrombosis in the right calf. 2. Negative for deep venous thrombosis in the left lower extremity. Alen Kerr MD on November 26, 2017 at 16:27 Board Certified Radiologist. This report was verified electronically.
--- NOTE | 2017-11-26 17:22 | RADRPT ---
EXAM DATE/TIME: 11/26/2017 13:28 [facility] COMPARISON: No previous studies available for comparison. INDICATIONS : Bilateral arm swelling. MEDICAL HISTORY : Chronic obstructive pulmonary disease. Congestive heart failure. Deep venous thrombosis. End stage re nal disease. Atrial fibrillation. Diabetes. SURGICAL HISTORY : Appendectomy.Cholecystectomy. Hysterectomy.Tonsillectomy. Dialysis access placment. ENCOUNTER: Initial ACUITY: 1 day PAIN SCORE: 0/10 LOCATION: Bilateral arms. FINDINGS: RIGHT UPPER EXTREMITY: There is a thrombosed right upper extremity dialysis graft. There is spontaneous flow documented in t he brachial, basilic, cephalic, axillary, and subclavian veins. The vessels are compressible and aug mentation response is documented. No filling defects are seen. The flow is phasic with respiration. Direction of flow in the jugular vein is caudal. LEFT UPPER EXTREMITY: There are multiple apparent failed dialysis access in the upper extremity. There is an apparent throm bosed brachiocephalic fistula with thrombosed cephalic vein pseudoaneurysms. There is a thrombosed ap parent brachiocephalic jump graft. There is also a third apparent thrombosed graft which obscured anamika stomoses. There is spontaneous flow documented in the brachial, basilic, axillary, and subclavian vei ns. The vessels are compressible and augmentation response is documented. No filling defects are se en. The flow is phasic with respiration. Direction of flow in the jugular vein is caudal. CONCLUSION: 1. Thrombosed right upper extremity dialysis graft. Otherwise, no sonographic evidence for right uppe r extremity DVT. 2. Apparent multiple failed dialysis accesses in the left upper extremity including a thrombosed brac hiocephalic fistula with thrombosed pseudoaneurysms. Remaining left upper extremity deep veins are pa tent without evidence for DVT. Franki Colby MD on November 26, 2017 at 17:11 Board Certified Radiologist. This report was verified electronically.
--- NOTE | 2017-11-26 18:16 | MG ---
cc: Geovanni Urbina MD, David J MD EKG #[id number] Propofol, fentanyl, shortness of breath, garbled speech, chronic subdurals, COPD. INTERPRETATION: Diffuse 6-7 Hz rhythms are noted. There is a sharp wave seen over the left temporal head region at epoch 9, better appreciated on the bipolar than the transverse montage. Some bitemporal sharply contoured theta waves are seen throughout much of the recording. Photic stimulation is performed without significant posterior driving. IMPRESSION: It actually looks a bit more metabolic but consistent with a moderate diffuse encephalopathy. Some small to moderate size sharps are seen throughout the recording bilaterally bitemporal and may be a slight increased risk for seizures. Clinical correlation is needed. MD RUMA Aguirre/ , 06:03 PM , 06:15 PM
--- NOTE | 2017-11-26 21:28 | ECHRPT ---
Indication: Unspecified combined systolic (congestive) and diastolic (congestive) heart failure CONCLUSIONS The left ventricular systolic function is low normal with an estimated ejection fraction in the rang e of 50- 55%. Wall thickness is measured at the upper limits of normal. Normal left ventricular size. Mitral valve sclerosis. Mitral anular calcification. Aortic valve sclerosis. BP: 123 / 56 HR: 84 Rhythm: Sinus MEASUREMENTS (Male / Female) Normal Values Technical Quality:Fair 2D ECHO LV Diastolic Diameter PLAX 4.8 cm 4.2 - 5.9 / 3.9 - 5.3 cm LV Systolic Diameter PLAX 3.7 cm IVS Diastolic Thickness 1.3 cm 0.6 - 1.0 / 0.6 - 0.9 cm LVPW Diastolic Thickness 1.3 cm 0.6 - 1.0 / 0.6 - 0.9 cm LV Relative Wall Thickness 0.5 LVOT Diameter 1.9 cm M-MODE Aortic Root Diameter MM 3.2 cm LA Systolic Diameter MM 6.2 cm LA Ao Ratio MM 1.9 AV Cusp Separation MM 2.5 cm DOPPLER AV Peak Velocity 224.0 cm/s AV Peak Gradient 20.1 mmHg LVOT Peak Velocity 172.0 cm/s LVOT Peak Gradient 11.8 mmHg AV Area Cont Eq pk 2.2 cm Mitral E Point Velocity 139.0 cm/s Mitral A Point Velocity 168.0 cm/s Mitral E to A Ratio 0.8 LV E' Lateral Velocity 4.5 cm/s Mitral E to LV E' Lateral Ratio 31.0 LV E' Septal Velocity 4.9 cm/s Mitral E to LV E' Septal Ratio 28.5 PV Peak Velocity 170.0 cm/s PV Peak Gradient 11.6 mmHg FINDINGS LEFT VENTRICLE The left ventricular systolic function is low normal with an estimated ejection fraction in the rang e of 50- 55%. Wall thickness is measured at the upper limits of normal. Normal left ventricular size. RIGHT VENTRICLE Normal right ventricular size and systolic function. LEFT ATRIUM The left atrial size is moderately dilated. RIGHT ATRIUM The right atrial size is normal. ATRIAL SEPTUM Normal atrial septal thickness without atrial level shunting by limited color doppler interrogation. AORTA The aortic root and proximal ascending aorta are normal in size on limited imaging. MITRAL VALVE MV sclerosis. MAC. No mitral valve stenosis or regurgitation. AORTIC VALVE Trileaflet aortic valve. No aortic valve stenosis or regurgitation. Aortic sclerosis. TRICUSPID VALVE Structurally normal tricuspid valve. No tricuspid valve stenosis or regurgitation. PULMONARY VALVE The pulmonary valve is not well visualized. VESSELS The inferior vena cava is normal in size. PERICARDIUM No pericardial effusion. Vanesa Driver MD, FACC (Electronically Signed) Final Date:26 Nov 2017 21:26
[2017-11-27] VITALS (14 sets, daily range): BP systolic 149–157; BP diastolic 63–70; PULSE 74–96; RESP 18–24; TEMP 98.3–99.3; O2SAT 97–100
[2017-11-27] MEDS: methylPREDNISolone SOD SUCC 40 MG/1 ML VIAL IV PUSH SCH ×2 (01:57→20:33)
[2017-11-27] MEDS: RESP: ALBUTEROL 2.5 MG/IPRATROPIUM 0.5 MG NEB (SCH) INH ×4 (03:40→21:02)
[2017-11-27] MEDS: INSULIN ASPART SUPPLEMENTAL SCALE SQ SCH ×6 (04:00→20:36)
[2017-11-27] MEDS: SODIUM CHLORIDE 1 GRAM TAB PO SCH ×4 (06:12→20:32)
[2017-11-27] MEDS: CHLORHEXIDINE GLUCONATE 2 % 1 PACK (2 CLOTHS) TOP SCH (06:14)
[2017-11-27 07:18] LABS: AUTOMATED NEUTROPHIL # 6.9 TH/MM3 (1.8-7.7); BASOPHIL % 0.2 % (0.0-2.0); HEMATOCRIT 27.5 % (35.0-46.0); HEMOGLOBIN 9.3 GM/DL (11.6-15.3); LYMPH % 3.2 % (9.0-44.0); LYMPHOCYTE # 0.2 TH/MM3 (1.0-4.8); MEAN CORPUSCULAR HEMOGLOBIN 32.2 PG (27.0-34.0); MEAN CORPUSCULAR HGB CONC 33.9 % (32.0-36.0); MEAN PLATELET VOLUME 8.1 FL (7.0-11.0); MONO % 3.3 % (0.0-8.0); MONOCYTE # 0.2 TH/MM3 (0-0.9); NEUT % 93.3 % (16.0-70.0); PLATELET COUNT 213 TH/MM3 (150-450); RED CELL DISTRIBUTION WIDTH 15.4 % (11.6-17.2); WHITE BLOOD COUNT 7.4 TH/MM3 (4.0-11.0)
[2017-11-27 07:36] LABS: ALBUMIN 3.3 GM/DL (3.4-5.0); ALKALINE PHOSPHATASE 68 U/L (45-117); ALT (GPT) 16 U/L (10-53); AST (GOT) 7 U/L (15-37); BICARBONATE 25.1 MEQ/L (21.0-32.0); BLOOD UREA NITROGEN 56 MG/DL (7-18); CALCIUM 8.1 MG/DL (8.5-10.1); CHLORIDE 100 MEQ/L (98-107); CREATININE 7.25 MG/DL (0.50-1.00); GLOMERULAR FILTRATION RATE 6 ML/MIN (>89); GLUCOSE,RANDOM 293 MG/DL (74-106); SODIUM (NA) 141 MEQ/L (136-145); TOTAL BILIRUBIN ADULT 0.5 MG/DL (0.2-1.0); TOTAL PROTEIN 6.7 GM/DL (6.4-8.2)
[2017-11-27] MEDS: CHLORHEXIDINE 0.12% (ORAL KIT) 15 ML CUP MT SCH ×2 (08:00→20:00)
[2017-11-27] MEDS: CEFEPIME INJ 1,000 MG in SODIUM CHLORIDE 0.9% INJ 100 ML IV SCH (08:34)
[2017-11-27] MEDS: FAMOTIDINE 20 MG/2 ML VIAL IV PUSH SCH ×2 (08:34→20:32)
--- NOTE | 2017-11-27 10:40 | HHI.CCPN ---
Subjective Remarks/Hospital Course Patient is a 67-year-old female with past medical history significant for COPD, end-stage renal disease, history of atrial fibrillation, history of upper extremity DVT, CHF, diabetes, who was brought to the [facility] emergency department for generalized weakness ongoing for a month and increasing shortness of breath. She underwent workup for altered mentation which showed bilateral chronic subdural hygromas with a possible acute hemorrhage. Transferred to [facility] for further evaluation and treatment with neurosurgery consultation. Apparently patient was hypoxemic at [place], ABG pH 7.296 PCO2 38.7, oxygen saturation was 84 and a PO2 of 54. Patient was placed on 50% nonrebreather for transportation. Also patient was on Coumadin until several days ago, for upper extremity DVT. Her INR was as high as 5 at that time and Coumadin was held. Once it came down to less than 1.7 patient was started on Eliquis. With CT showing SDH patient was given K Centra before transfer. I evaluated the patient immediately after arrival to the [place] ICU. Patient was somnolent but wakes up and follows basic commands, he was oriented only to person with some garbled speech. However patient appeared to be in moderate to severe respiratory distress with labored breathing. Evidently air entry was significantly diminished bilaterally indicating COPD exacerbation/CHF. She was quite tachypneic and patient was intubated and placed on mechanical ventilation. Patient also showed twitching of the bilateral upper extremity with jerking movements prior to intubation. I reviewed the CT of the head from [facility] with . And appears to show chronic subdural hygroma versus subdural hematoma, with some probable acute blood on the left side. Chest x-ray shows pulmonary vascular congestion. Patient will be started on emergency dialysis as have already contacted nephrology. After dialysis patient will be sent for a CT of the head and also CT of the neck as the patient has a large ecchymosis involving the anterior upper neck and anterior chin. SUBJ: Patient remains intubated sedated. On sedation hold following commands. CT head yesterday showed bilateral small chronic subdural hemorrhage with some acute component on the left side. Patient had hemodialysis yesterday with 2.8 L of fluid removed 11/27: Patient is alert awake oriented. Breathing comfortably. Mentation is back to baseline. No neurosurgical interventions planned at this time. US of lower extremity shows right calf DVT. Discussed with ISRAEL Cooper to start anticoagulation with heparin IV. Objective Vital Signs Date Time Temp Pulse Resp B/P (MAP) Pulse Ox O2 Delivery O2 Flow Rate FiO2 11/27/17 09:29 100 Nasal Cannula 2.00 11/27/17 06:00 84 11/27/17 04:00 98.8 24 157/67 (97) 11/26/17 19:00 40 Result Diagram: 11/27/17 0640 11/27/17 0640 Other Results Laboratory Tests Test 11/26/17 14:57 Blood Gas Puncture Site RT RADIAL Blood Gas Patient Temperature 98.6 Blood Gas HCO3 24 mmol/L (22-26) Blood Gas Base Excess -0.5 mmol/L (-2-2) Blood Gas Oxygen Saturation 93 % (90-100) Arterial Blood pH 7.38 (7.380-7.420) Arterial Blood Partial Pressure CO2 41 mmHg (38-42) Arterial Blood Partial Pressure O2 76 mmHg (61-120) Arterial Blood Oxygen Content 11.8 Vol % (12.0-20.0) Arterial Blood Carboxyhemoglobin 1.8 % (0-4) Arterial Blood Methemoglobin 1.2 % (0-2) Blood Gas Hemoglobin 9.0 G/DL (12.0-16.0) Oxygen Delivery Device VENTILATOR Blood Gas Ventilator Setting CPAP5/PEEP5 Blood Gas Inspired Oxygen 30 % Imaging CT at [facility] showed small bilateral SDH Objective Remarks GENERAL: 67 year old well-nourished, well-developed patient who is breathing comfortably on nasal cannula SKIN: Upper neck and chin with large ecchymoses. Chronic venous stasis changes in the lower extremities. HEAD: Atraumatic. Normocephalic. EYES: Pupils equal round and reactive. Extraocular motions intact. No scleral icterus. ENT: Nose without bleeding, airway patent. NECK: Trachea midline. Cannot appreciate JVD. Ecchymoses anterior upper neck. CARDIOVASCULAR: Sinus rhythm without murmurs, gallops, or rubs. Heart sounds are distant RESPIRATORY: Breath sounds equal bilaterally but significantly diminished. No wheezes or crackles GASTROINTESTINAL: Abdomen distended, tympanic. No hepato-splenomegaly, but exam limited by morbid obesity MUSCULOSKELETAL: Extremities Chronic venous stasis changes in the lower extremities. NEUROLOGICAL: Alert awake oriented. Motor grossly within normal limits. Follows commands upper and lower extremities A/P Assessment and Plan NEURO: Chronic subdural hygroma versus hemorrhage, with acute component on left Acute encephalopathy most likely metabolic History of depression -CT of the head reviewed with neurosurgery Dr. Luz, no surgical intervention planned -Repeat CT of the head and neck -showed small bilateral subdural hemorrhage which is chronic with possible small left sided acute bleed -EEG to rule out seizures showed diffuse encephalopathy. small to moderate size sharps are seen bilaterally bitemporal and may be a slight increased risk for seizures. Start Keppra for seizure prophylaxisa -Mental status change may be due to a combination of subdural hematoma and hypercapnia -Holding all her home antidepressants and pain medications -Avoid hyponatremia RESP: Acute hypoxemic and hypercapnic respiratory failure Acute COPD exacerbation History of COPD -Emergently intubated and placed on mechanical ventilation PRVC 16/550/10/100% -DuoNeb every 6 hours scheduled and as needed -IV Solu-Medrol 40 mg every 8 hours -Empiric antibiotics with cefepime, check sputum culture -Initiate CPAP trials CV: History of atrial fibrillation History of hypertension -Fluid removal with hemodialysis, 2.8L removed yesterday -Labetalol as needed to keep systolic blood pressure less than 150 -Hold home antihypertensives at this time GI: -Renal diet. PO famotidine : End-stage renal disease on hemodialysis -Nephrology Dr. Sutherland, 2.8L removed yesterday -Follow-up CBC and CMP after dialysis ID: -F/u sputum culture, blood culture -Empiric cefepime for COPD exacerbation HEME: DVT right calf History of upper extremity DVT -Previously on Coumadin recently on Eliquis, both were held -Received K Centra due to subdural hemorrhage -Cleared by Dr. Luz to start anticoagulation with IV heparin, personally discussed with him 11/27/17 -Venous ultrasound showed right calf DVT ENDO: Type 2 diabetes -Electrolyte replacement per protocol -Sliding scale insulin PROPH: -Bilateral lower extremity SCDs/RAJAT. CIV heparin to be started today. IV famotidine LINES: -Patient has right femoral central line placed at [facility]-DC today Level 3 Continue ICU care: Watch closely neurologically well heparin is being started for DVT. Consult [facility] to assume care in am Melani Almanza MD November 27, 2017 10:40
--- NOTE | 2017-11-27 11:20 | HHI.NSPN ---
(Jose Beckett) History Chief Complaint: Bilateral subdural hygromas. (Jose Beckett) Interval History Patient is a 67-year-old female with past medical history significant for COPD, end-stage renal disease, history of atrial fibrillation, history of upper extremity DVT, CHF, diabetes who was brought to the [facility] emergency department for generalized weakness ongoing for a month and increasing shortness of breath. She underwent workup for altered mentation which showed bilateral chronic subdural hygromas with a possible acute hemorrhage. Request to transfer to [facility] for further evaluation and treatment with neurosurgery consultation. Apparently patient was hypoxemic on ABG pH 7.296 PCO2 38.7, oxygen saturation was 84 and a PO2 of 54. Patient was placed on 50% nonrebreather for transportation (per critical care note) 11/26/17: Pt sedated on Diprivan and Fentanyl drips. Held for exam. She opens her eyes to voice and gets very agitated with shaking in extremities. She is not following commands. 11/27/17: Patient awake and alert. She is extubated today. She appears comfortable in bed with no dyspnea. She complains of posterior headaches. She follows commands well. She is oriented to her current city and where she lives. (Jose Beckett) Review of Systems General: Negative for: fever, chills, insomnia Respiratory: Positive for: shortness of breath, cough, sputum Cardiovascular: Negative for: chest pain Gastrointestinal: Negative for: nausea, vomitting, diarrhea, constipation ( Jose Beckett) Exam Results Vital Signs Date Time Temp Pulse Resp B/P (MAP) Pulse Ox O2 Delivery O2 Flow Rate FiO2 11/27/17 09:29 100 Nasal Cannula 2.00 11/27/17 06:00 84 11/27/17 04:00 98.8 24 157/67 (97) 11/26/17 19:00 40 Intake and Output 11/27/17 11/27/17 11/27/17 07:59 15:59 23:59 Intake Total 100 ml Balance 100 ml (Jose Beckett) Physical Examination General: Pt off sedation and intubated. She is awake, alert, and oriented. She is resting comfortably in bed in the ICU. Eyes: Pupils 3mm bilaterally reactive bilaterally. Resp: CTA bilaterally. Heart: Mild tachycardia low 100s. Abd: Distended but soft. Positive bs Skin: No cyanosis or erythema. Muscle: Moves all 4 extremities to command. Neuro: Pt awake and alert and oriented. Pupils are 3 mm bilaterally reactive bilaterally. She follows commands well. She answers questions appropriately. (Jose Beckett) Lab, Micro, Other Results Last Impressions Upper Extremity Ultrasound 11/26/17 Signed Impressions: Service Date/Time: November 13:28 - CONCLUSION: 1. Thrombosed right upper extremity dialysis graft. Otherwise, no sonographic evidence for right upper extremity DVT. 2. Apparent multiple failed dialysis accesses in the left upper extremity including a thrombosed brachiocephalic fistula with thrombosed pseudoaneurysms. Remaining left upper extremity deep veins are patent without evidence for DVT. Franki Colby MD Lower Extremity Ultrasound 11/26/17 0000 Signed Impressions: Service Date/Time: November 12:56 - CONCLUSION: 1. Positive for deep venous thrombosis in the right calf. 2. Negative for deep venous thrombosis in the left lower extremity. Alen Kerr MD Neck CT 11/25/17 0000 Signed Impressions: Service Date/Time: Saturday, November 25, 2017 22:21 - CONCLUSION: 1. Endotracheal tube in the right mainstem bronchus. This should be retracted. 2. Small thyroid nodules. Jose Zhao MD Head CT 11/25/17 0000 Signed Impressions: Service Date/Time: Saturday, November 25, 2017 22:21 - CONCLUSION: 1. Small bilateral extra-axial fluid collections could be chronic subdural hematomas. Minimal acute blood products seen posteriorly on the left. 2. No midline shift or mass effect. Jose Zhao MD Chest X-Ray 11/25/17 0000 Signed Impressions: Service Date/Time: Saturday, November 25, 2017 17:35 - CONCLUSION: 1. Tip of ET tube is in the orifice of the right mainstem bronchus. Pullback ET tube 3-4 cm. 2. No pneumothorax. Rogelio Cline MD Laboratory Tests Test 11/26/17 14:57 11/27/17 06:40 Blood Gas Puncture Site RT RADIAL Blood Gas Patient Temperature 98.6 Blood Gas HCO3 24 mmol/L Blood Gas Base Excess -0.5 mmol/L Blood Gas Oxygen Saturation 93 % Arterial Blood pH 7.38 Arterial Blood Partial Pressure CO2 41 mmHg Arterial Blood Partial Pressure O2 76 mmHg Arterial Blood Oxygen Content 11.8 Vol % Arterial Blood Carboxyhemoglobin 1.8 % Arterial Blood Methemoglobin 1.2 % Blood Gas Hemoglobin 9.0 G/DL Oxygen Delivery Device VENTILATOR Blood Gas Ventilator Setting CPAP5/PEEP5 Blood Gas Inspired Oxygen 30 % White Blood Count 7.4 TH/MM3 Red Blood Count 2.90 MIL/MM3 Hemoglobin 9.3 GM/DL Hematocrit 27.5 % Mean Corpuscular Volume 95.0 FL Mean Corpuscular Hemoglobin 32.2 PG Mean Corpuscular Hemoglobin Concent 33.9 % Red Cell Distribution Width 15.4 % Platelet Count 213 TH/MM3 Mean Platelet Volume 8.1 FL Neutrophils (%) (Auto) 93.3 % Lymphocytes (%) (Auto) 3.2 % Monocytes (%) (Auto) 3.3 % Eosinophils (%) (Auto) 0.0 % Basophils (%) (Auto) 0.2 % Neutrophils # (Auto) 6.9 TH/MM3 Lymphocytes # (Auto) 0.2 TH/MM3 Monocytes # (Auto) 0.2 TH/MM3 Eosinophils # (Auto) 0.0 TH/MM3 Basophils # (Auto) 0.0 TH/MM3 CBC Comment DIFF FINAL Differential Comment Blood Urea Nitrogen 56 MG/DL Creatinine 7.25 MG/DL Random Glucose 293 MG/DL Total Protein 6.7 GM/DL Albumin 3.3 GM/DL Calcium Level 8.1 MG/DL Alkaline Phosphatase 68 U/L Aspartate Amino Transf (AST/SGOT) 7 U/L Alanine Aminotransferase (ALT/SGPT) 16 U/L Total Bilirubin 0.5 MG/DL Sodium Level 141 MEQ/L Potassium Level 4.5 MEQ/L Chloride Level 100 MEQ/L Carbon Dioxide Level 25.1 MEQ/L Anion Gap 16 MEQ/L Estimat Glomerular Filtration Rate 6 ML/MIN 11/27/17 11/27/17 11/28/17 14:59 22:59 06:59 Intake Total 100 ml Balance 100 ml Intake IV Total 100 ml (Jose Beckett) Medical Decision Making Impression and Plan A: 67 y/o FM with bilateral small subdural hygromas versus chronic subdural hemorrhages. P: Continue to monitor Neuro exam. Continue with medical care (Jose Beckett) Attending Statement The exam, history, and the medical decision-making described in the above note were completed with the assistance of the mid-level provider. I reviewed and agree with the findings presented. I attest that I had a [id number] encounter with the patient on the same day, and personally performed and documented my assessment and findings in the medical record. Neurologic examination is stable she is awake and interactive and follows commands moving all 4 extremities. Intermittent bouts of confusion. Given the significant DVTs in the upper and lower extremities is felt best that her anticoagulation be resumed with close neurologic monitoring. Discussed with patient as well as tile machine operator Dr. Almanza. (Nehemias Luz MD) Jose Beckett November 27, 2017 11:20 Nehemias Luz MD November 27, 2017 13:54
--- NOTE | 2017-11-27 11:40 | HHI.NPPN ---
Subjective Renal Failure: Chronic, End Stage Renal Disease Interval History She was extubated. Is awake and reporting thirst. Due for dialysis today. + DVT right leg, heparin gtt to be started. (Concepción Bess) Objective Data Data 11/27/17 11/28/17 19:00 07:00 Intake Total 100 ml Balance 100 ml Intake IV Total 100 ml Vital Signs Date Time Temp Pulse Resp B/P (MAP) Pulse Ox O2 Delivery O2 Flow Rate FiO2 11/27/17 09:29 100 Nasal Cannula 2.00 11/27/17 07:00 96 Nasal Cannula 4.00 11/27/17 06:00 84 11/27/17 04:00 98.8 74 24 157/67 (97) 97 11/27/17 04:00 74 11/27/17 02:00 82 11/27/17 00:00 86 11/27/17 00:00 98.7 86 24 149/63 (91) 98 11/26/17 22:00 91 11/26/17 21:52 100 Nasal Cannula 2.00 11/26/17 20:00 98.9 92 18 161/72 (101) 100 11/26/17 20:00 92 11/26/17 19:00 93 Nasal Cannula 4.00 40 11/26/17 16:00 88 11/26/17 16:00 98.9 88 32 151/67 (95) 98 11/26/17 15:26 100 Nasal Cannula 4.00 11/26/17 15:26 100 Nasal Cannula 4 11/26/17 14:00 88 11/26/17 12:00 99.1 92 25 150/77 (101) 97 11/26/17 12:00 92 11/26/17 12:00 40 (Concepción Bess) -: 11/27/17 0640 11/27/17 0640 Imaging Last 72 hours Impressions Upper Extremity Ultrasound 11/26/17 0000 Signed Impressions: Service Date/Time: November 13:28 - CONCLUSION: 1. Thrombosed right upper extremity dialysis graft. Otherwise, no sonographic evidence for right upper extremity DVT. 2. Apparent multiple failed dialysis accesses in the left upper extremity including a thrombosed brachiocephalic fistula with thrombosed pseudoaneurysms. Remaining left upper extremity deep veins are patent without evidence for DVT. Franki Colby MD Lower Extremity Ultrasound 11/26/17 Signed Impressions: Service Date/Time: November 12:56 - CONCLUSION: 1. Positive for deep venous thrombosis in the right calf. 2. Negative for deep venous thrombosis in the left lower extremity. Alen Kerr MD Neck CT 11/25/17 Signed Impressions: Service Date/Time: Saturday, November 25, 2017 22:21 - CONCLUSION: 1. Endotracheal tube in the right mainstem bronchus. This should be retracted. 2. Small thyroid nodules. Jose Zhao MD Head CT 11/25/17 Signed Impressions: Service Date/Time: Saturday, November 25, 2017 22:21 - CONCLUSION: 1. Small bilateral extra-axial fluid collections could be chronic subdural hematomas. Minimal acute blood products seen posteriorly on the left. 2. No midline shift or mass effect. Jose Zhao MD Chest X-Ray 11/25/17 Signed Impressions: Service Date/Time: Saturday, November 25, 2017 17:35 - CONCLUSION: 1. Tip of ET tube is in the orifice of the right mainstem bronchus. Pullback ET tube 3-4 cm. 2. No pneumothorax. Rogelio Cline MD (Concepción Bess) Physical Exam General Appearance: Well Developed, Well Nourished, Comfortable (Concepción Bess) Throat Throat Exam: Oral Mucosa [place] & Moist (Concepción Bess) Pulmonary Resp Exam: Breath Sounds Equal, No Distress (Concepción Bess) Cardiology CV Exam: Regular, Normal Sinus Rhythm (Concepción Bess) Gastrointestinal/Abdomen GI Exam: Soft, Non-Tender, Bowel Sounds Present (Concepción Bess) Musculoskeletal MS Exam: Joints Intact, Normal Tone, Unable to Ambulate (Concepción Bess) Integumentary Skin Exam: Warm, Dry, Intact Skin Remarks bruising around neck (Concepción Bess) Neurologic Neuro Exam: Alert, Oriented, Moving All Extremities (Concepción Bess) Psychiatric Psych Exam: Appropriate Responses (Concepción Bess) Assessment/Plan Discussed Condition With: Patient Assessment Summary: Anemia of CKD, End Stage Renal Disease Problem List: (1) ESRD (end stage renal disease) ICD Codes: N18.6 - End stage renal disease Plan: Continue dialysis support MWF, due today. Monitor fluid and electrolytes intermittently. Avoid Gadolinium and IVF administration Permcath for HD use. Has thrombosed AVG on left Diet if advanced should be renal diet with no protein restriction. She uses velphoro at home, it is not on formulary. Start Sevelamer with meals if needed for hyperphosphatemia. (2) Sudural hygroma with probable acute hemorrhage Plan: Neurosurgery followed, non surgical management. Monitor neuro status (3) Acute hypoxemic respiratory failure ICD Codes: J96.01 - Acute respiratory failure with hypoxia Plan: Improved. s/p successful extubation 11/26 (4) COPD with acute exacerbation ICD Codes: J44.1 - Chronic obstructive pulmonary disease with (acute) exacerbation Plan: Improved Oxygen and deep breathing/coughing/pulmonary toilet/IS as tolerated (5) CHF (congestive heart failure) ICD Codes: I50.9 - Heart failure, unspecified Plan: EF 50-55% Monitor fluid status Fluid removal with dialysis as tolerated (6) Anemia ICD Codes: D64.9 - Anemia, unspecified Plan: Epogen with dialysis. Iron profile pending. (7) DVT (deep venous thrombosis) ICD Codes: I82.409 - Acute embolism and thrombosis of unspecified deep veins of unspecified lower extremity Plan: In right calf Neurosurgery approved heparin gtt (Concepción Bess) Plan Patient was seen and examined. Agree with above assessment and plan. Dialysis today. Has DVT in the right lower extremity has been started on heparin drip. (Jeovany Sutherland MD) Concepción Bess November 27, 2017 11:40 Jeovany Sutherland MD November 27, 2017 15:57
[2017-11-27 11:51] LABS: INTERNATIONAL NORMALIZED RATIO 1.5 RATIO
[2017-11-27 11:55] LABS: HEMATOCRIT 28.1 % (35.0-46.0); HEMOGLOBIN 9.3 GM/DL (11.6-15.3); MEAN CELL VOLUME 94.7 FL (80.0-100.0); MEAN CORPUSCULAR HEMOGLOBIN 31.4 PG (27.0-34.0); MEAN CORPUSCULAR HGB CONC 33.1 % (32.0-36.0); MEAN PLATELET VOLUME 8.1 FL (7.0-11.0); PLATELET COUNT 231 TH/MM3 (150-450); RED BLOOD COUNT 2.97 MIL/MM3 (4.00-5.30); RED CELL DISTRIBUTION WIDTH 15.5 % (11.6-17.2); WHITE BLOOD COUNT 7.6 TH/MM3 (4.0-11.0)
[2017-11-27] MEDS: levETIRAcetam 500 MG TAB PO SCH ×3 (12:58→21:00)
[2017-11-27] MEDS: HEPARIN-D5W 25,000 U/250 ML 250 ML IV PRN (14:33)
[2017-11-27] MEDS: EPOETIN ALFA 10,000 UNITS/ML VIAL IV PUSH PRN (14:49)
[2017-11-27] MEDS: GENTAMICIN SULFATE 20 MG/2 ML VIAL OTHER PRN (14:50)
[2017-11-27 16:27] LABS: IRON (FE) 45 MCG/DL (50-170); TOTAL IRON BINDING CAPACITY 214 MCG/DL (250-450)
[2017-11-27] MEDS: ONDANSETRON HCL 4 MG/2 ML VIAL IV PUSH PRN (20:14)
[2017-11-27] MEDS ORDERED: PROCHLORPERAZINE INJ 10 MG/2 ML VIAL IV PUSH PRN (20:45)
--- NOTE | 2017-11-27 21:37 | RADRPT ---
EXAM DATE/TIME: 11/27/2017 20:50 [facility] COMPARISON: No previous studies available for comparison. INDICATIONS : Pain and vomiting. MEDICAL HISTORY : Chronic obstructive pulmonary disease. Congestive heart failure. Deep venous thrombosis. End stage re nal disease. Atrial fibrillation. Diabetes. SURGICAL HISTORY : Appendectomy.Cholecystectomy. Hysterectomy.Tonsillectomy. Dialysis access placment. ENCOUNTER: Initial ACUITY: 1 day PAIN SCORE: 10/10 LOCATION: Entire abdomen. FINDINGS: The stomach is markedly distended. There is also and mild small bowel and large bowel ileus. There is a residual contrast in the colon. No free air identified. CONCLUSION: 1. Marked gaseous distention of the stomach with small bowel and large bowel ileus as well. Raul Bella MD on November 27, 2017 at 21:34 Board Certified Radiologist. This report was verified electronically.
--- NOTE | 2017-11-27 23:30 | RADRPT ---
EXAM DATE/TIME: 11/27/2017 23:03 [facility] COMPARISON: ABDOMEN KUB ONLY, November 27, 2017, 20:50. INDICATIONS : Nasogastric tube placement. MEDICAL HISTORY : Chronic obstructive pulmonary disease. Congestive heart failure. Deep venous thrombosis. Diabetes A-Fib SURGICAL HISTORY : Appendectomy. Cholecystectomy. Hysterectomy. Tonsillectomy ENCOUNTER: Subsequent ACUITY: 3 days PAIN SCORE: 0/10 LOCATION: Bilateral Abdpmen FINDINGS: Nasogastric tube is present with tip in the stomach. There has been interval decompression of the sto mach. There is mild gaseous distention of multiple small bowel loops of the abdomen and pelvis. Minim al contrast present in portions of colon. CONCLUSION: NG tube in good position Archie Ramey MD on November 27, 2017 at 23:27 Board Certified Radiologist. This report was verified electronically.
[2017-11-28] VITALS (15 sets, daily range): BP systolic 135–167; BP diastolic 63–72; PULSE 94–104; RESP 18–24; TEMP 97.7–99.2; O2SAT 92–100
[2017-11-28] MEDS: ONDANSETRON HCL 4 MG/2 ML VIAL IV PUSH PRN (02:55)
[2017-11-28] MEDS: INSULIN ASPART SUPPLEMENTAL SCALE SQ SCH ×6 (03:19→21:32)
[2017-11-28] MEDS: SODIUM CHLORIDE 1 GRAM TAB PO SCH ×3 (03:19→21:29)
[2017-11-28] MEDS: CHLORHEXIDINE GLUCONATE 2 % 1 PACK (2 CLOTHS) TOP SCH (03:20)
[2017-11-28] MEDS: RESP: ALBUTEROL 2.5 MG/IPRATROPIUM 0.5 MG NEB (SCH) INH ×4 (03:20→20:59)
[2017-11-28] MEDS: HEPARIN-D5W 25,000 U/250 ML 250 ML IV PRN (05:18)
[2017-11-28 07:20] LABS: ALBUMIN 3.5 GM/DL (3.4-5.0); DIRECT BILIRUBIN ADULT 0.2 MG/DL (0.0-0.2); INDIRECT BILIRUBIN 0.4 MG/DL (0.0-0.8); MAGNESIUM 2.4 MG/DL (1.5-2.5); PHOSPHORUS 5.2 MG/DL (2.5-4.9); TOTAL BILIRUBIN ADULT 0.6 MG/DL (0.2-1.0); TOTAL PROTEIN 6.9 GM/DL (6.4-8.2)
[2017-11-28] MEDS: CHLORHEXIDINE 0.12% (ORAL KIT) 15 ML CUP MT SCH ×2 (08:00→20:00)
[2017-11-28] MEDS: levETIRAcetam 500 MG TAB PO SCH ×2 (09:16→21:29)
[2017-11-28] MEDS: methylPREDNISolone SOD SUCC 40 MG/1 ML VIAL IV PUSH SCH ×2 (09:16→21:28)
[2017-11-28] MEDS: FAMOTIDINE 20 MG/2 ML VIAL IV PUSH SCH ×2 (09:16→21:29)
--- NOTE | 2017-11-28 09:56 | HHI.PR ---
Subjective Remarks No acute distress. Patient appears to have global weakness. Concerns for intracranial hemorrhage are decreasing in the findings appear stable. Respiratory status improving. Objective Vital Signs Date Time Temp Pulse Resp B/P (MAP) Pulse Ox O2 Delivery O2 Flow Rate FiO2 11/28/17 09:15 100 Nasal Cannula 3.00 11/28/17 06:00 98 11/28/17 04:00 96 11/28/17 04:00 98.5 96 21 146/70 (95) 99 11/28/17 02:00 99 11/28/17 00:00 98 11/28/17 00:00 98.4 98 21 147/64 (91) 100 11/27/17 22:00 92 11/27/17 21:02 99 Nasal Cannula 4.00 11/27/17 20:00 92 11/27/17 20:00 99.3 92 23 155/70 (98) 100 11/27/17 19:00 100 Nasal Cannula 4.00 11/27/17 18:00 95 11/27/17 16:00 92 11/27/17 16:00 98.4 92 18 150/67 (94) 100 11/27/17 14:00 88 11/27/17 12:00 90 11/27/17 12:00 98.4 90 20 150/63 (92) 99 11/27/17 10:00 92 I/O 11/27/17 11/27/17 11/27/17 11/28/17 11/28/17 11/28/17 07:00 15:00 23:00 07:00 15:00 23:00 Intake Total 100 ml 240 ml 0 ml Output Total 3000 ml 20 ml 400 ml Balance -2900 ml 220 ml -400 ml Intake Oral 240 ml 0 ml IV Total 100 ml Output Urine Total 20 ml 0 ml Gastric Drainage Total 400 ml Hemodialysis 3000 ml # Bowel Movements 0 0 Result Diagram: 11/27/17 1125 11/27/17 0640 Imaging Last Impressions Abdomen X-Ray 11/27/17 2300 Signed Impressions: Service Date/Time: Monday, November 27, 2017 23:03 - CONCLUSION: NG tube in good position Archie Ramey MD Upper Extremity Ultrasound 11/26/17 0000 Signed Impressions: Service Date/Time: November 13:28 - CONCLUSION: 1. Thrombosed right upper extremity dialysis graft. Otherwise, no sonographic evidence for right upper extremity DVT. 2. Apparent multiple failed dialysis accesses in the left upper extremity including a thrombosed brachiocephalic fistula with thrombosed pseudoaneurysms. Remaining left upper extremity deep veins are patent without evidence for DVT. Franki Colby MD Lower Extremity Ultrasound 11/26/17 0000 Signed Impressions: Service Date/Time: November 12:56 - CONCLUSION: 1. Positive for deep venous thrombosis in the right calf. 2. Negative for deep venous thrombosis in the left lower extremity. Alen Kerr MD Neck CT 11/25/17 0000 Signed Impressions: Service Date/Time: Saturday, November 25, 2017 22:21 - CONCLUSION: 1. Endotracheal tube in the right mainstem bronchus. This should be retracted. 2. Small thyroid nodules. Jose Zhao MD Head CT 11/25/17 0000 Signed Impressions: Service Date/Time: Saturday, November 25, 2017 22:21 - CONCLUSION: 1. Small bilateral extra-axial fluid collections could be chronic subdural hematomas. Minimal acute blood products seen posteriorly on the left. 2. No midline shift or mass effect. Jose Zhao MD Chest X-Ray 11/25/17 0000 Signed Impressions: Service Date/Time: Saturday, November 25, 2017 17:35 - CONCLUSION: 1. Tip of ET tube is in the orifice of the right mainstem bronchus. Pullback ET tube 3-4 cm. 2. No pneumothorax. Rogelio Cline MD Objective Remarks GENERAL: NAD, A&Ox3 HEAD: Normocephalic. NECK: Supple, trachea midline. No lymphadenopathy. EYES: No scleral icterus. No injection or drainage. CARDIOVASCULAR: Regular rate and rhythm without murmurs, gallops, or rubs. RESPIRATORY: Breath sounds equal bilaterally. No accessory muscle use. GASTROINTESTINAL: Abdomen soft, non-tender, nondistended. MUSCULOSKELETAL: No cyanosis, or edema. SKIN: Warm and dry. NEURO: No focal neurological deficitis. Generalized weakness. A/P Problem List: (1) DVT (deep venous thrombosis) ICD Code: I82.409 - Acute embolism and thrombosis of unspecified deep veins of unspecified lower extremity (2) Sudural hygroma with probable acute hemorrhage (3) Acute hypoxemic respiratory failure ICD Code: J96.01 - Acute respiratory failure with hypoxia (4) COPD with acute exacerbation ICD Code: J44.1 - Chronic obstructive pulmonary disease with (acute) exacerbation (5) ESRD (end stage renal disease) ICD Code: N18.6 - End stage renal disease (6) CHF (congestive heart failure) ICD Code: I50.9 - Heart failure, unspecified (7) Anemia ICD Code: D64.9 - Anemia, unspecified (8) Coagulopathy ICD Code: D68.9 - Coagulation defect, unspecified (9) Acute encephalopathy ICD Code: G93.40 - Encephalopathy, unspecified Assessment and Plan 67-year-old female admitted secondary to acute respiratory failure with COPD exacerbation and findings of intracranial hemorrhage which appear to be stable at this point. Chronic subdural hygroma versus hemorrhage, with acute component on left Acute encephalopathy most likely metabolic History of depression Neurosurgery following No intracranial surgery planned Hemorrhages are small and appear stable Continue Keppra Follow sodium levels Acute hypoxemic and hypercapnic respiratory failure Acute COPD exacerbation History of COPD Status post intubation now extubated Continue recovery Continue to monitor respiratory status closely Continue cefepime Follow cultures Continue DuoNeb scheduled Continue as needed respiratory treatments Continue Solu-Medrol History of atrial fibrillation History of hypertension Follow on telemetry Follow blood pressures Blood pressures elevated today Resume baseline blood pressure treatments End-stage renal disease on hemodialysis Nephrology following Status post dialysis Follow CBC and CMP Continue renal diet DVT right calf History of upper extremity DVT Continue IV heparin Monitor PTT Patient had previously been on Coumadin and Eliquis Diabetes mellitus type 2 Follow blood sugars Insulin sliding scale Diabetic diet DVT prophylaxis Heparin SCDs Best Villasenor MD November 28, 2017 09:56
--- NOTE | 2017-11-28 10:18 | HHI.NSPN ---
(Jose Beckett) History Chief Complaint: Bilateral subdural hygromas. (Jose Beckett) Interval History Patient is a 67-year-old female with past medical history significant for COPD, end-stage renal disease, history of atrial fibrillation, history of upper extremity DVT, CHF, diabetes who was brought to the [facility] emergency department for generalized weakness ongoing for a month and increasing shortness of breath. She underwent workup for altered mentation which showed bilateral chronic subdural hygromas with a possible acute hemorrhage. Request to transfer to [facility] for further evaluation and treatment with neurosurgery consultation. Apparently patient was hypoxemic on ABG pH 7.296 PCO2 38.7, oxygen saturation was 84 and a PO2 of 54. Patient was placed on 50% nonrebreather for transportation (per critical care note) 11/26/17: Pt sedated on Diprivan and Fentanyl drips. Held for exam. She opens her eyes to voice and gets very agitated with shaking in extremities. She is not following commands. 11/27/17: Patient awake and alert. She is extubated today. She appears comfortable in bed with no dyspnea. She complains of posterior headaches. She follows commands well. She is oriented to her current city and where she lives. 11/28/17: Pt awake and alert. She denies any headache, nausea, vomiting, muscle weakness. No chest pain or sob. She is pleasant. She is on Heparin drip. NG tube in place and abdomen with less distention. (Jose Beckett) Review of Systems General: Negative for: fever, chills, insomnia Respiratory: Negative for: shortness of breath, cough, sputum Cardiovascular: Negative for: chest pain Gastrointestinal: Negative for: nausea, vomitting, diarrhea, constipation ( Jose Beckett) Exam Results Vital Signs Date Time Temp Pulse Resp B/P (MAP) Pulse Ox O2 Delivery O2 Flow Rate FiO2 11/28/17 09:15 100 Nasal Cannula 3.00 11/28/17 06:00 98 5/5/18 04:00 98.5 21 146/70 (95) 11/26/17 19:00 40 Intake and Output 11/28/17 11/28/17 11/28/17 07:59 15:59 23:59 Intake Total 0 ml Output Total 400 ml Balance -400 ml (Jose Beckett) Physical Examination General: Pt off sedation, extubated. She is awake, alert, and oriented. She is resting comfortably in bed in the ICU. Eyes: Pupils 3mm bilaterally reactive bilaterally. Resp: CTA bilaterally. Heart: NSR no murmurs. Abd: Less distention, soft. No tenderness. Skin: No cyanosis or erythema. Muscle: Moves all 4 extremities to command. Neuro: Pt awake and alert and oriented. Pupils are 3 mm bilaterally reactive bilaterally. She follows commands well. She answers questions appropriately. (Jose Beckett) Lab, Micro, Other Results Last Impressions Abdomen X-Ray 11/27/17 2300 Signed Impressions: Service Date/Time: Monday, November 27, 2017 23:03 - CONCLUSION: NG tube in good position Archie Ramey MD Upper Extremity Ultrasound 11/26/17 0000 Signed Impressions: Service Date/Time: November 13:28 - CONCLUSION: 1. Thrombosed right upper extremity dialysis graft. Otherwise, no sonographic evidence for right upper extremity DVT. 2. Apparent multiple failed dialysis accesses in the left upper extremity including a thrombosed brachiocephalic fistula with thrombosed pseudoaneurysms. Remaining left upper extremity deep veins are patent without evidence for DVT. Franki Colby MD Lower Extremity Ultrasound 11/26/17 0000 Signed Impressions: Service Date/Time: November 12:56 - CONCLUSION: 1. Positive for deep venous thrombosis in the right calf. 2. Negative for deep venous thrombosis in the left lower extremity. Alen Kerr MD Neck CT 11/25/17 0000 Signed Impressions: Service Date/Time: Saturday, November 25, 2017 22:21 - CONCLUSION: 1. Endotracheal tube in the right mainstem bronchus. This should be retracted. 2. Small thyroid nodules. Jose Zhao MD Head CT 11/25/17 0000 Signed Impressions: Service Date/Time: Saturday, November 25, 2017 22:21 - CONCLUSION: 1. Small bilateral extra-axial fluid collections could be chronic subdural hematomas. Minimal acute blood products seen posteriorly on the left. 2. No midline shift or mass effect. Jose Zhao MD Chest X-Ray 11/25/17 0000 Signed Impressions: Service Date/Time: Saturday, November 25, 2017 17:35 - CONCLUSION: 1. Tip of ET tube is in the orifice of the right mainstem bronchus. Pullback ET tube 3-4 cm. 2. No pneumothorax. Rogelio Cline MD Laboratory Tests Test 11/27/17 11:25 11/27/17 23:27 11/28/17 04:20 11/28/17 06:08 White Blood Count 7.6 TH/MM3 Red Blood Count 2.97 MIL/MM3 Hemoglobin 9.3 GM/DL Hematocrit 28.1 % Mean Corpuscular Volume 94.7 FL Mean Corpuscular Hemoglobin 31.4 PG Mean Corpuscular Hemoglobin Concent 33.1 % Red Cell Distribution Width 15.5 % Platelet Count 231 TH/MM3 Mean Platelet Volume 8.1 FL Prothrombin Time 15.0 SEC Prothromb Time International Ratio 1.5 RATIO Activated Partial Thromboplast Time 25.0 SEC 24.5 SEC 55.7 SEC Nasal Screen MRSA (PCR) MRSA DETECTED Lactic Acid Level 0.8 mmol/L Phosphorus Level 5.2 MG/DL Magnesium Level 2.4 MG/DL Total Bilirubin 0.6 MG/DL Direct Bilirubin 0.2 MG/DL Indirect Bilirubin 0.4 MG/DL Aspartate Amino Transf (AST/SGOT) 10 U/L Alanine Aminotransferase (ALT/SGPT) 16 U/L Alkaline Phosphatase 75 U/L Ammonia 13 MCMOL/L Lactate Dehydrogenase 201 U/L Total Protein 6.9 GM/DL Albumin 3.5 GM/DL Amylase Level 22 U/L Lipase 97 U/L (Jose Beckett) Medical Decision Making Impression and Plan A: 67 y/o FM with bilateral small subdural hygromas versus chronic subdural hemorrhages. Multiple DVT in UEs and RLE. P: Continue to monitor Neuro exam. Continue with medical care Pt on Heparin drip for DVT. (Jose Beckett) Attending Statement The exam, history, and the medical decision-making described in the above note were completed with the assistance of the mid-level provider. I reviewed and agree with the findings presented. I attest that I had a [id number] encounter with the patient on the same day, and personally performed and documented my assessment and findings in the medical record. (Nehemias Luz MD) Jose Beckett November 28, 2017 10:17 Nehemias Luz MD November 28, 2017 11:46
--- NOTE | 2017-11-28 16:00 | RADRPT ---
EXAM DATE/TIME: 11/28/2017 13:29 [facility] COMPARISON: No previous studies available for comparison. INDICATIONS : Abdominal pain. MEDICAL HISTORY : Chronic obstructive pulmonary disease. Congestive heart failure. Deep venous SURGICAL HISTORY : Appendectomy. Cholecystectomy. Hysterectomy. Tonsillectomy. Dialysis access placment. ENCOUNTER: Initial ACUITY: 1 day PAIN SCORE: 9/10 LOCATION: Bilateral upper quadrant MEASUREMENTS: LIVER: 21.3 cm length COMMON DUCT: 5 mm RIGHT KIDNEY: 11.0 x 5.4 x 7.0 cm LEFT KIDNEY: 10.3 x 4.1 x 6.2 cm SPLEEN: 13.7 cm length AORTA: Not visualized FINDINGS: LIVER: Normal echotexture without focal lesion or ductal dilatation. COMMON DUCT: No intraluminal mass or stone visualized. GALLBLADDER: Patient states that she is status post cholecystectomy. There is a structure in the gallbladder fossa that may represent residual gallbladder. No wall thickening or pericholecystic fluid. No cholelithia sis. PANCREAS: The visualized portions are within normal limits. RIGHT KIDNEY: Diffusely thinned cortex. 2.0 cm simple cyst in the upper pole. LEFT KIDNEY: Diffusely thinned cortex. SPLEEN: 2.1 cm rounded hyperechoic lesion in the spleen. 2.2 cm rounded hyperechoic lesion in the spleen. AORTA: Not visualized. IVC: Within normal limits. CONCLUSION: 1. The patient states that she is status post cholecystectomy. Possible residual gallbladder is seen in the gallbladder fossa. No gallstones or wall thickening seen. 2. Mild splenomegaly. 2 hyperechoic lesions in the spleen likely representing hemangiomas. 3. Echogenic kidneys with thinned cortex suggesting medical renal disease. 4. Some areas of the abdomen are obscured due to patient body habitus. Boubacar Garrison MD on November 28, 2017 at 15:54 Board Certified Radiologist. This report was verified electronically.
--- NOTE | 2017-11-28 17:42 | HHI.NPPN ---
Subjective Renal Failure: Chronic, End Stage Renal Disease Objective Data Data 11/28/17 11/29/17 19:00 07:00 Intake Total 0 ml Output Total 100 ml Balance -100 ml Intake Oral 0 ml Output Urine Total 0 ml Gastric Drainage Total 100 ml # Bowel Movements 0 Vital Signs Date Time Temp Pulse Resp B/P (MAP) Pulse Ox O2 Delivery O2 Flow Rate FiO2 11/28/17 16:51 98 18 135/63 (87) 97 11/28/17 16:15 97.7 99 18 158/70 (99) 99 11/28/17 16:00 99 11/28/17 14:00 103 11/28/17 12:00 100 11/28/17 12:00 98.5 100 22 166/72 (103) 100 11/28/17 10:00 96 11/28/17 09:15 100 Nasal Cannula 3.00 11/28/17 08:30 100 Nasal Cannula 4.00 11/28/17 08:00 99.2 94 24 167/70 (102) 94 11/28/17 08:00 94 11/28/17 07:06 104 11/28/17 06:00 98 11/28/17 04:00 96 11/28/17 04:00 98.5 96 21 146/70 (95) 99 11/28/17 02:00 99 11/28/17 00:00 98 11/28/17 00:00 98.4 98 21 147/64 (91) 100 11/27/17 22:00 92 11/27/17 21:02 99 Nasal Cannula 4.00 11/27/17 20:00 92 11/27/17 20:00 99.3 92 23 155/70 (98) 100 11/27/17 19:00 100 Nasal Cannula 4.00 11/27/17 18:00 95 -: 11/27/17 1125 11/27/17 0640 Physical Exam General Appearance: Well Developed, Well Nourished, Comfortable Throat Throat Exam: Oral Mucosa [place] & Moist Pulmonary Resp Exam: Breath Sounds Equal, No Distress Cardiology CV Exam: Regular, Normal Sinus Rhythm Gastrointestinal/Abdomen GI Exam: Soft, Non-Tender, Bowel Sounds Present Musculoskeletal MS Exam: Joints Intact, Normal Tone, Unable to Ambulate Integumentary Skin Exam: Warm, Dry, Intact Neurologic Neuro Exam: Alert, Oriented, Moving All Extremities Psychiatric Psych Exam: Appropriate Responses Assessment/Plan Discussed Condition With: Patient Assessment Summary: Anemia of CKD, End Stage Renal Disease Problem List: (1) ESRD (end stage renal disease) ICD Codes: N18.6 - End stage renal disease Plan: Continue dialysis support MWF, last dialysis yesterday 3 L off Monitor fluid and electrolytes intermittently. Avoid Gadolinium and IVF administration Permcath for HD use. Has thrombosed AVG on left Diet if advanced should be renal diet with no protein restriction. She uses velphoro at home, it is not on formulary. Start Sevelamer with meals if needed for hyperphosphatemia. (2) Sudural hygroma with probable acute hemorrhage Plan: Neurosurgery followed, non surgical management. Monitor neuro status (3) Acute hypoxemic respiratory failure ICD Codes: J96.01 - Acute respiratory failure with hypoxia Plan: Improved. s/p successful extubation 11/26 (4) COPD with acute exacerbation ICD Codes: J44.1 - Chronic obstructive pulmonary disease with (acute) exacerbation Plan: Improved Oxygen and deep breathing/coughing/pulmonary toilet/IS as tolerated (5) CHF (congestive heart failure) ICD Codes: I50.9 - Heart failure, unspecified Plan: EF 50-55% Monitor fluid status Fluid removal with dialysis as tolerated (6) Anemia ICD Codes: D64.9 - Anemia, unspecified Plan: Epogen with dialysis. Iron profile pending. (7) DVT (deep venous thrombosis) ICD Codes: I82.409 - Acute embolism and thrombosis of unspecified deep veins of unspecified lower extremity Plan: In right calf Neurosurgery approved heparin gtt Tre Beal MD November 28, 2017 17:42
[2017-11-29] VITALS (7 sets, daily range): BP systolic 121–158; BP diastolic 60–70; PULSE 72–99; RESP 17–18; TEMP 97.4–98.7; O2SAT 92–100
[2017-11-29] MEDS: INSULIN ASPART SUPPLEMENTAL SCALE SQ SCH ×6 (00:51→20:00)
[2017-11-29] MEDS: HEPARIN-D5W 25,000 U/250 ML 250 ML IV PRN ×2 (00:51→15:17)
[2017-11-29] MEDS: RESP: ALBUTEROL 2.5 MG/IPRATROPIUM 0.5 MG NEB (SCH) INH ×4 (03:48→20:35)
[2017-11-29] MEDS: CHLORHEXIDINE GLUCONATE 2 % 1 PACK (2 CLOTHS) TOP SCH (04:00)
[2017-11-29] MEDS: SODIUM CHLORIDE 1 GRAM TAB PO SCH ×3 (05:07→20:00)
[2017-11-29] MEDS: CHLORHEXIDINE 0.12% (ORAL KIT) 15 ML CUP MT SCH ×2 (08:00→20:00)
[2017-11-29] MEDS: levETIRAcetam 500 MG TAB PO SCH ×2 (09:44→20:22)
[2017-11-29] MEDS: methylPREDNISolone SOD SUCC 40 MG/1 ML VIAL IV PUSH SCH ×2 (09:45→20:22)
[2017-11-29] MEDS: FAMOTIDINE 20 MG/2 ML VIAL IV PUSH SCH ×2 (09:46→20:22)
--- NOTE | 2017-11-29 11:00 | HHI.NSPN ---
History Chief Complaint: Bilateral subdural hygromas. Interval History Patient is a 67-year-old female with past medical history significant for COPD, end-stage renal disease, history of atrial fibrillation, history of upper extremity DVT, CHF, diabetes who was brought to the [facility] emergency department for generalized weakness ongoing for a month and increasing shortness of breath. She underwent workup for altered mentation which showed bilateral chronic subdural hygromas with a possible acute hemorrhage. Request to transfer to [facility] for further evaluation and treatment with neurosurgery consultation. Apparently patient was hypoxemic on ABG pH 7.296 PCO2 38.7, oxygen saturation was 84 and a PO2 of 54. Patient was placed on 50% nonrebreather for transportation (per critical care note) 11/26/17: Pt sedated on Diprivan and Fentanyl drips. Held for exam. She opens her eyes to voice and gets very agitated with shaking in extremities. She is not following commands. 11/27/17: Patient awake and alert. She is extubated today. She appears comfortable in bed with no dyspnea. She complains of posterior headaches. She follows commands well. She is oriented to her current city and where she lives. 11/28/17: Pt awake and alert. She denies any headache, nausea, vomiting, muscle weakness. No chest pain or sob. She is pleasant. She is on Heparin drip. NG tube in place and abdomen with less distention. 11/29/17: Pt awake and alert. Sitting up in chair. Pt apparently got oob on her own and sat in chair. She denies headaches, nausea, vomiting chest pain or sob. She is on O2 via nc. Review of Systems General: Negative for: fever, chills, insomnia Respiratory: Negative for: shortness of breath, cough, sputum Cardiovascular: Negative for: chest pain Gastrointestinal: Negative for: nausea, vomitting, diarrhea, constipation Exam Results Vital Signs Date Time Temp Pulse Resp B/P (MAP) Pulse Ox O2 Delivery O2 Flow Rate FiO2 11/29/17 09:45 97 Nasal Cannula 2.00 11/29/17 08:00 98.7 99 18 121/67 (85) 11/26/17 19:00 40 Intake and Output 11/29/17 11/29/17 11/30/17 08:00 16:00 00:00 Intake Total 600 ml Balance 600 ml Physical Examination General: She is awake, alert, and oriented. She is resting comfortably in a chair on the med/surg floor. Eyes: Pupils 3mm bilaterally reactive bilaterally. Resp: CTA bilaterally. Heart: NSR no murmurs. Abd: Distended again. Diminished bs. No tenderness. Skin: No cyanosis or erythema. Muscle: Moves all 4 extremities to command. Neuro: Pt awake and alert. Pupils are 3 mm bilaterally reactive bilaterally. She follows commands well. She answers questions appropriately. Lab, Micro, Other Results Last Impressions Abdomen Ultrasound 11/28/17 0000 Signed Impressions: Service Date/Time: Tuesday, November 28, 2017 13:29 - CONCLUSION: 1. The patient states that she is status post cholecystectomy. Possible residual gallbladder is seen in the gallbladder fossa. No gallstones or wall thickening seen. 2. Mild splenomegaly. 2 hyperechoic lesions in the spleen likely representing hemangiomas. 3. Echogenic kidneys with thinned cortex suggesting medical renal disease. 4. Some areas of the abdomen are obscured due to patient body habitus. Boubacar Garrison MD Abdomen X-Ray 11/27/17 2300 Signed Impressions: Service Date/Time: Monday, November 27, 2017 23:03 - CONCLUSION: NG tube in good position Archie Ramey MD Upper Extremity Ultrasound 11/26/17 0000 Signed Impressions: Service Date/Time: November 13:28 - CONCLUSION: 1. Thrombosed right upper extremity dialysis graft. Otherwise, no sonographic evidence for right upper extremity DVT. 2. Apparent multiple failed dialysis accesses in the left upper extremity including a thrombosed brachiocephalic fistula with thrombosed pseudoaneurysms. Remaining left upper extremity deep veins are patent without evidence for DVT. Franki Colby MD Lower Extremity Ultrasound 11/26/17 0000 Signed Impressions: Service Date/Time: November 12:56 - CONCLUSION: 1. Positive for deep venous thrombosis in the right calf. 2. Negative for deep venous thrombosis in the left lower extremity. Alen Kerr MD Neck CT 11/25/17 0000 Signed Impressions: Service Date/Time: Saturday, November 25, 2017 22:21 - CONCLUSION: 1. Endotracheal tube in the right mainstem bronchus. This should be retracted. 2. Small thyroid nodules. Jose Zhao MD Head CT 11/25/17 0000 Signed Impressions: Service Date/Time: Saturday, November 25, 2017 22:21 - CONCLUSION: 1. Small bilateral extra-axial fluid collections could be chronic subdural hematomas. Minimal acute blood products seen posteriorly on the left. 2. No midline shift or mass effect. Jose Zhao MD Chest X-Ray 11/25/17 0000 Signed Impressions: Service Date/Time: Saturday, November 25, 2017 17:35 - CONCLUSION: 1. Tip of ET tube is in the orifice of the right mainstem bronchus. Pullback ET tube 3-4 cm. 2. No pneumothorax. Rogelio Cline MD Laboratory Tests Test 11/28/17 12:53 11/28/17 18:13 11/29/17 03:54 Activated Partial Thromboplast Time 74.5 SEC 37.5 SEC 31.7 SEC Medical Decision Making Impression and Plan A: 67 y/o FM with bilateral small subdural hygromas versus chronic subdural hemorrhages. Multiple DVT in UEs and RLE. P: Continue to monitor Neuro exam. Continue with medical care Pt on Heparin drip for DVT. Jose Beckett November 29, 2017 11:00 am
[2017-11-29] MEDS: INSULIN DETEMIR 100 UNITS/ML VIAL SQ SCH (12:30)
--- NOTE | 2017-11-29 16:09 | HHI.PR ---
Subjective Remarks Atypical stool today. Blood sugars are increasing with increasing p.o. intake. NG tube removed by patient last night and was left out and she has not had problems of gastric distention, nausea, vomiting, or bloating. Objective Vital Signs Date Time Temp Pulse Resp B/P (MAP) Pulse Ox O2 Delivery O2 Flow Rate FiO2 11/29/17 12:00 87 18 139/63 (88) 98 11/29/17 09:45 97 Nasal Cannula 2.00 11/29/17 08:07 97 Nasal Cannula 2.00 11/29/17 08:00 98.7 99 18 121/67 (85) 97 11/29/17 04:00 97.4 98 17 158/70 (99) 93 11/29/17 00:00 98.0 94 18 155/67 (96) 92 11/28/17 21:01 94 Nasal Cannula 3.00 11/28/17 20:00 Nasal Cannula 2.00 11/28/17 20:00 97.7 97 20 147/65 (92) 92 11/28/17 16:51 98 18 135/63 (87) 97 11/28/17 16:15 97.7 99 18 158/70 (99) 99 I/O 11/28/17 11/28/17 11/28/17 11/29/17 11/29/17 11/29/17 07:00 15:00 23:00 07:00 15:00 23:00 Intake Total 0 ml 0 ml 600 ml Output Total 400 ml 100 ml Balance -400 ml -100 ml 600 ml Intake Oral 0 ml 0 ml 600 ml Output Urine Total 0 ml 0 ml Gastric Drainage Total 400 ml 100 ml # Voids 3 # Bowel Movements 0 0 Result Diagram: 11/27/17 1125 11/27/17 0640 Objective Remarks GENERAL: NAD, A&Ox3 HEAD: Normocephalic. NECK: Supple, trachea midline. No lymphadenopathy. EYES: No scleral icterus. No injection or drainage. CARDIOVASCULAR: Regular rate and rhythm without murmurs, gallops, or rubs. RESPIRATORY: Breath sounds equal bilaterally. No accessory muscle use. GASTROINTESTINAL: Abdomen soft, non-tender, nondistended. MUSCULOSKELETAL: No cyanosis, or edema. SKIN: Warm and dry. NEURO: No focal neurological deficitis. Generalized weakness. A/P Problem List: (1) DVT (deep venous thrombosis) ICD Code: I82.409 - Acute embolism and thrombosis of unspecified deep veins of unspecified lower extremity (2) Sudural hygroma with probable acute hemorrhage (3) Acute hypoxemic respiratory failure ICD Code: J96.01 - Acute respiratory failure with hypoxia (4) COPD with acute exacerbation ICD Code: J44.1 - Chronic obstructive pulmonary disease with (acute) exacerbation (5) ESRD (end stage renal disease) ICD Code: N18.6 - End stage renal disease (6) CHF (congestive heart failure) ICD Code: I50.9 - Heart failure, unspecified (7) Anemia ICD Code: D64.9 - Anemia, unspecified (8) Coagulopathy ICD Code: D68.9 - Coagulation defect, unspecified (9) Acute encephalopathy ICD Code: G93.40 - Encephalopathy, unspecified Assessment and Plan 67-year-old female admitted secondary to acute respiratory failure with COPD exacerbation and findings of intracranial hemorrhage which appear to be stable at this point. Atypical stool is present (white patches, no exposure to calcium or contrast in the last 3 days). Further stool studies to cover parasites or fungus are ordered. Blood sugars elevated. Long-acting insulin added, continue sliding scale. Chronic subdural hygroma versus hemorrhage, with acute component on left Acute encephalopathy most likely metabolic History of depression Neurosurgery following No intracranial surgery planned Hemorrhages are small and appear stable Continue Keppra Follow sodium levels Acute hypoxemic and hypercapnic respiratory failure Acute COPD exacerbation History of COPD Status post intubation now extubated Continue recovery Continue to monitor respiratory status closely Continue cefepime Follow cultures Continue DuoNeb scheduled Continue as needed respiratory treatments Continue Solu-Medrol History of atrial fibrillation History of hypertension Follow on telemetry Follow blood pressures Blood pressures elevated today Resume baseline blood pressure treatments End-stage renal disease on hemodialysis Nephrology following Status post dialysis Follow CBC and CMP Continue renal diet DVT right calf History of upper extremity DVT Continue IV heparin Monitor PTT Patient had previously been on Coumadin and Eliquis Diabetes mellitus type 2 Follow blood sugars Insulin sliding scale Diabetic diet DVT prophylaxis Heparin JOHNs Best Villasenor MD November 29, 2017 16:09
--- NOTE | 2017-11-29 16:21 | HHI.NPPN ---
Subjective Renal Failure: Chronic, End Stage Renal Disease Objective Data Data Vital Signs Date Time Temp Pulse Resp B/P (MAP) Pulse Ox O2 Delivery O2 Flow Rate FiO2 11/29/17 12:00 87 18 139/63 (88) 98 11/29/17 09:45 97 Nasal Cannula 2.00 11/29/17 08:07 97 Nasal Cannula 2.00 11/29/17 08:00 98.7 99 18 121/67 (85) 97 11/29/17 04:00 97.4 98 17 158/70 (99) 93 11/29/17 00:00 98.0 94 18 155/67 (96) 92 11/28/17 21:01 94 Nasal Cannula 3.00 11/28/17 20:00 Nasal Cannula 2.00 11/28/17 20:00 97.7 97 20 147/65 (92) 92 11/28/17 16:51 98 18 135/63 (87) 97 -: 11/27/17 1125 11/27/17 0640 Physical Exam General Appearance: Well Developed, Well Nourished, Comfortable Throat Throat Exam: Oral Mucosa [place] & Moist Pulmonary Resp Exam: Breath Sounds Equal, No Distress Cardiology CV Exam: Regular, Normal Sinus Rhythm Gastrointestinal/Abdomen GI Exam: Soft, Non-Tender, Bowel Sounds Present Musculoskeletal MS Exam: Joints Intact, Normal Tone, Unable to Ambulate Integumentary Skin Exam: Warm, Dry, Intact Neurologic Neuro Exam: Alert, Oriented, Moving All Extremities Psychiatric Psych Exam: Appropriate Responses Assessment/Plan Discussed Condition With: Patient Assessment Summary: Anemia of CKD, End Stage Renal Disease Problem List: (1) ESRD (end stage renal disease) ICD Codes: N18.6 - End stage renal disease Plan: Continue dialysis support MW, last dialysis Thursday 3 L off Monitor fluid and electrolytes intermittently. Avoid Gadolinium and IVF administration Permcath for HD use. Has thrombosed AVG on left Diet if advanced should be renal diet with no protein restriction. She uses velphoro at home, it is not on formulary. Start Sevelamer with meals if needed for hyperphosphatemia. Dr Chente Sutherland to follow (2) Sudural hygroma with probable acute hemorrhage Plan: Neurosurgery followed, non surgical management. Monitor neuro status (3) Acute hypoxemic respiratory failure ICD Codes: J96.01 - Acute respiratory failure with hypoxia Plan: Improved. s/p successful extubation 11/26 (4) COPD with acute exacerbation ICD Codes: J44.1 - Chronic obstructive pulmonary disease with (acute) exacerbation Plan: Improved Oxygen and deep breathing/coughing/pulmonary toilet/IS as tolerated (5) CHF (congestive heart failure) ICD Codes: I50.9 - Heart failure, unspecified Plan: EF 50-55% Monitor fluid status Fluid removal with dialysis as tolerated (6) Anemia ICD Codes: D64.9 - Anemia, unspecified Plan: Epogen with dialysis. Iron profile pending. (7) DVT (deep venous thrombosis) ICD Codes: I82.409 - Acute embolism and thrombosis of unspecified deep veins of unspecified lower extremity Plan: In right calf Neurosurgery approved heparin gtt Tre Beal MD November 29, 2017 16:21
[2017-11-29] MEDS: ONDANSETRON HCL 4 MG/2 ML VIAL IV PUSH PRN (20:23)
[2017-11-30] VITALS (9 sets, daily range): BP systolic 118–171; BP diastolic 55–73; PULSE 64–90; RESP 17–20; TEMP 97.9–98.6; O2SAT 97–100
[2017-11-30] MEDS: INSULIN ASPART SUPPLEMENTAL SCALE SQ SCH ×6 (00:32→21:58)
[2017-11-30 02:15] LABS: AUTOMATED NEUTROPHIL # 6.8 TH/MM3 (1.8-7.7); BASOPHIL % 0.1 % (0.0-2.0); EOSINOPHIL % 0.1 % (0.0-4.0); HEMATOCRIT 27.6 % (35.0-46.0); HEMOGLOBIN 9.5 GM/DL (11.6-15.3); LYMPH % 6.2 % (9.0-44.0); LYMPHOCYTE # 0.5 TH/MM3 (1.0-4.8); MEAN CELL VOLUME 93.1 FL (80.0-100.0); MEAN CORPUSCULAR HEMOGLOBIN 32.1 PG (27.0-34.0); MEAN CORPUSCULAR HGB CONC 34.5 % (32.0-36.0); MEAN PLATELET VOLUME 8.1 FL (7.0-11.0); MONO % 5.6 % (0.0-8.0); MONOCYTE # 0.4 TH/MM3 (0-0.9); PLATELET COUNT 186 TH/MM3 (150-450); RED BLOOD COUNT 2.96 MIL/MM3 (4.00-5.30); RED CELL DISTRIBUTION WIDTH 15.3 % (11.6-17.2); WHITE BLOOD COUNT 7.7 TH/MM3 (4.0-11.0)
[2017-11-30 02:34] LABS: ALBUMIN 3.2 GM/DL (3.4-5.0); ALKALINE PHOSPHATASE 59 U/L (45-117); ALT (GPT) 16 U/L (10-53); AST (GOT) 9 U/L (15-37); BICARBONATE 26.1 MEQ/L (21.0-32.0); BLOOD UREA NITROGEN 70 MG/DL (7-18); CALCIUM 8.2 MG/DL (8.5-10.1); CHLORIDE 95 MEQ/L (98-107); CREATININE 8.48 MG/DL (0.50-1.00); GLOMERULAR FILTRATION RATE 5 ML/MIN (>89); GLUCOSE,RANDOM 194 MG/DL (74-106); SODIUM (NA) 136 MEQ/L (136-145); TOTAL BILIRUBIN ADULT 0.4 MG/DL (0.2-1.0); TOTAL PROTEIN 6.1 GM/DL (6.4-8.2)
[2017-11-30] MEDS: CHLORHEXIDINE GLUCONATE 2 % 1 PACK (2 CLOTHS) TOP SCH (04:00)
[2017-11-30] MEDS: SODIUM CHLORIDE 1 GRAM TAB PO SCH ×3 (04:23→21:57)
[2017-11-30] MEDS: HEPARIN-D5W 25,000 U/250 ML 250 ML IV PRN (06:49)
[2017-11-30] MEDS: levETIRAcetam 500 MG TAB PO SCH ×2 (08:24→21:57)
[2017-11-30] MEDS: methylPREDNISolone SOD SUCC 40 MG/1 ML VIAL IV PUSH SCH (08:24)
[2017-11-30] MEDS: INSULIN DETEMIR 100 UNITS/ML VIAL SQ SCH (08:24)
[2017-11-30] MEDS: FAMOTIDINE 20 MG/2 ML VIAL IV PUSH SCH (08:24)
[2017-11-30] MEDS: CHLORHEXIDINE 0.12% (ORAL KIT) 15 ML CUP MT SCH ×2 (08:25→20:00)
--- NOTE | 2017-11-30 11:59 | HHI.NPPN ---
Subjective Renal Failure: Chronic, End Stage Renal Disease Interval History sitting on a chair. To have dialysis today. Remains on heparin drip. Objective Data Data Vital Signs Date Time Temp Pulse Resp B/P (MAP) Pulse Ox O2 Delivery O2 Flow Rate FiO2 11/30/17 10:00 99 Nasal Cannula 2.00 11/30/17 08:35 99 Nasal Cannula 2.00 11/30/17 08:00 98.2 80 20 135/63 (87) 99 11/30/17 06:22 98.5 86 17 171/72 (105) 97 11/30/17 00:00 98.2 67 17 133/63 (86) 98 11/29/17 20:00 72 11/29/17 20:00 99 Nasal Cannula 2.00 11/29/17 20:00 97.7 74 18 131/63 (85) 100 11/29/17 16:00 82 18 129/60 (83) 100 11/29/17 12:00 87 18 139/63 (88) 98 -: 11/30/17 0144 11/30/17 0144 Physical Exam General Appearance: Well Developed, Well Nourished, Comfortable Throat Throat Exam: Oral Mucosa [place] & Moist Pulmonary Resp Exam: Breath Sounds Equal, No Distress Cardiology CV Exam: Regular, Normal Sinus Rhythm Gastrointestinal/Abdomen GI Exam: Soft, Non-Tender, Bowel Sounds Present Musculoskeletal MS Exam: Joints Intact, Normal Tone, Unable to Ambulate Integumentary Skin Exam: Warm, Dry, Intact Neurologic Neuro Exam: Alert, Oriented, Moving All Extremities Psychiatric Psych Exam: Appropriate Responses Assessment/Plan Discussed Condition With: Patient Assessment Summary: Anemia of CKD, End Stage Renal Disease Problem List: (1) ESRD (end stage renal disease) ICD Codes: N18.6 - End stage renal disease Plan: Continue dialysis support MWF, dialysis is scheduled for today. Monitor fluid and electrolytes intermittently. Avoid Gadolinium and IVF administration Permcath for HD use. Has thrombosed AVG on left Start Sevelamer. (2) Sudural hygroma with probable acute hemorrhage Plan: Neurosurgery followed, non surgical management. Monitor neuro status (3) Acute hypoxemic respiratory failure ICD Codes: J96.01 - Acute respiratory failure with hypoxia Plan: Improved. s/p successful extubation 11/26 (4) COPD with acute exacerbation ICD Codes: J44.1 - Chronic obstructive pulmonary disease with (acute) exacerbation Plan: Improved Oxygen and deep breathing/coughing/pulmonary toilet/IS as tolerated (5) CHF (congestive heart failure) ICD Codes: I50.9 - Heart failure, unspecified Plan: EF 50-55% Monitor fluid status Fluid removal with dialysis as tolerated (6) Anemia ICD Codes: D64.9 - Anemia, unspecified Plan: Epogen with dialysis. Iron profile pending. (7) DVT (deep venous thrombosis) ICD Codes: I82.409 - Acute embolism and thrombosis of unspecified deep veins of unspecified lower extremity Plan: In right calf Neurosurgery approved heparin gtt Consider switching to Apixaban: 2.5 mg PO BID. Plan Patient can be discharged from renal standpoint. Jeovany Sutherland MD November 30, 2017 11:59
--- NOTE | 2017-11-30 12:54 | HHI.PR ---
Subjective Remarks Follow-up DVT. Patient is not a good historian does not recall what oral anticoagulants she was on prior to admission according to nursing staff, she is confused at baseline. Tolerating heparin drip. Awaiting return call from neurosurgery to clarify if patient can be started on oral anticoagulants preferably Eliquis patient on hemodialysis or Coumadin. Discussed with nephrology stable for discharge or transfer to [place]. Discussed with case management Objective Vitals Vital Signs Date Time Temp Pulse Resp B/P (MAP) Pulse Ox O2 Delivery O2 Flow Rate FiO2 11/30/17 12:00 97.9 78 20 130/60 (83) 100 11/30/17 10:00 99 Nasal Cannula 2.00 11/30/17 08:35 99 Nasal Cannula 2.00 11/30/17 08:00 98.2 80 20 135/63 (87) 99 11/30/17 06:22 98.5 86 17 171/72 (105) 97 11/30/17 00:00 98.2 67 17 133/63 (86) 98 11/29/17 20:00 72 11/29/17 20:00 99 Nasal Cannula 2.00 11/29/17 20:00 97.7 74 18 131/63 (85) 100 11/29/17 16:00 82 18 129/60 (83) 100 I/O 11/29/17 11/29/17 11/29/17 11/30/17 11/30/17 11/30/17 07:00 15:00 23:00 07:00 15:00 23:00 Intake Total 600 ml Balance 600 ml Intake Oral 600 ml # Voids 3 # Bowel Movements 1 Result Diagram: 11/30/17 0144 11/30/17 0144 Imaging Last Impressions Abdomen Ultrasound 11/28/17 0000 Signed Impressions: Service Date/Time: Tuesday, November 28, 2017 13:29 - CONCLUSION: 1. The patient states that she is status post cholecystectomy. Possible residual gallbladder is seen in the gallbladder fossa. No gallstones or wall thickening seen. 2. Mild splenomegaly. 2 hyperechoic lesions in the spleen likely representing hemangiomas. 3. Echogenic kidneys with thinned cortex suggesting medical renal disease. 4. Some areas of the abdomen are obscured due to patient body habitus. Boubacar Garrison MD Abdomen X-Ray 11/27/17 2300 Signed Impressions: Service Date/Time: Monday, November 27, 2017 23:03 - CONCLUSION: NG tube in good position Archie Ramey MD Upper Extremity Ultrasound 11/26/17 Signed Impressions: Service Date/Time: November 13:28 - CONCLUSION: 1. Thrombosed right upper extremity dialysis graft. Otherwise, no sonographic evidence for right upper extremity DVT. 2. Apparent multiple failed dialysis accesses in the left upper extremity including a thrombosed brachiocephalic fistula with thrombosed pseudoaneurysms. Remaining left upper extremity deep veins are patent without evidence for DVT. Franki Colby MD Lower Extremity Ultrasound 11/26/17 Signed Impressions: Service Date/Time: November 12:56 - CONCLUSION: 1. Positive for deep venous thrombosis in the right calf. 2. Negative for deep venous thrombosis in the left lower extremity. Alen Kerr MD Neck CT 11/25/17 Signed Impressions: Service Date/Time: Saturday, November 25, 2017 22:21 - CONCLUSION: 1. Endotracheal tube in the right mainstem bronchus. This should be retracted. 2. Small thyroid nodules. Jose Zhao MD Head CT 11/25/17 Signed Impressions: Service Date/Time: Saturday, November 25, 2017 22:21 - CONCLUSION: 1. Small bilateral extra-axial fluid collections could be chronic subdural hematomas. Minimal acute blood products seen posteriorly on the left. 2. No midline shift or mass effect. Jose Zhao MD Chest X-Ray 11/25/17 Signed Impressions: Service Date/Time: Saturday, November 25, 2017 17:35 - CONCLUSION: 1. Tip of ET tube is in the orifice of the right mainstem bronchus. Pullback ET tube 3-4 cm. 2. No pneumothorax. Rogelio Cline MD Objective Remarks GENERAL: NAD, A&Ox3 CARDIOVASCULAR: Regular rate and rhythm without murmurs, gallops, or rubs. RESPIRATORY: Breath sounds equal bilaterally. No accessory muscle use. GASTROINTESTINAL: Abdomen soft, non-tender, nondistended. MUSCULOSKELETAL: No cyanosis but with bilateral lower extremity pitting edema as well as right upper extremity. SKIN: Warm and dry. Vas-Cath right upper chest NEURO: No focal neurological deficits. Generalized weakness. She is awake but confused Procedures intubation A/P Problem List: (1) Acute encephalopathy ICD Code: G93.40 - Encephalopathy, unspecified (2) Acute hypoxemic respiratory failure ICD Code: J96.01 - Acute respiratory failure with hypoxia (3) COPD with acute exacerbation ICD Code: J44.1 - Chronic obstructive pulmonary disease with (acute) exacerbation (4) CHF (congestive heart failure) ICD Code: I50.9 - Heart failure, unspecified (5) Sudural hygroma with probable acute hemorrhage (6) Coagulopathy ICD Code: D68.9 - Coagulation defect, unspecified Assessment and Plan 67-year-old female admitted secondary to acute respiratory failure with COPD exacerbation and findings of intracranial hemorrhage which appear to be stable at this point. Chronic subdural hygroma versus hemorrhage, with acute component on left Acute encephalopathy most likely metabolic History of depression Neurosurgery following No intracranial surgery planned Hemorrhages are small and appear stable Continue Keppra Follow sodium levels Acute hypoxemic and hypercapnic respiratory failure Acute COPD exacerbation History of COPD Status post intubation now extubated Continue recovery Continue to monitor respiratory status closely S/p cefepime Follow cultures Continue DuoNeb scheduled Continue as needed respiratory treatments Dc Solu-Medrol switch to prednisone for 3 days only History of atrial fibrillation History of hypertension Stable Follow on telemetry Follow blood pressures Resume baseline blood pressure treatments End-stage renal disease on hemodialysis Nephrology following Status post dialysis Follow CBC and CMP Continue renal diet DVT right calf History of upper extremity DVT Continue IV heparin. Monitor PTT. Switch to po if ok with NS Patient had previously been on Coumadin and Eliquis Diabetes mellitus type 2, hyperglycemic secondary to steroids Follow blood sugars Insulin sliding scale Diabetic diet Atypical stool is present (white patches, no exposure to calcium or contrast in the last 3 days). Further stool studies to cover parasites or fungus are ordered. DVT prophylaxis Heparin SCDs Discharge Planning Dc to SNF or transfer to [place] awaiting NS Mike Tatum MD November 30, 2017 12:54
[2017-11-30] MEDS: SEVELAMER CARBONATE 800 MG TAB PO SCH ×2 (13:00→18:34)
--- NOTE | 2017-11-30 16:15 | HHI.NSPN ---
(Jose Beckett) History Chief Complaint: Bilateral subdural hygromas. (Jose Beckett) Interval History Patient is a 67-year-old female with past medical history significant for COPD, end-stage renal disease, history of atrial fibrillation, history of upper extremity DVT, CHF, diabetes who was brought to the [facility] emergency department for generalized weakness ongoing for a month and increasing shortness of breath. She underwent workup for altered mentation which showed bilateral chronic subdural hygromas with a possible acute hemorrhage. Request to transfer to [facility] for further evaluation and treatment with neurosurgery consultation. Apparently patient was hypoxemic on ABG pH 7.296 PCO2 38.7, oxygen saturation was 84 and a PO2 of 54. Patient was placed on 50% nonrebreather for transportation (per critical care note) 11/26/17: Pt sedated on Diprivan and Fentanyl drips. Held for exam. She opens her eyes to voice and gets very agitated with shaking in extremities. She is not following commands. 11/27/17: Patient awake and alert. She is extubated today. She appears comfortable in bed with no dyspnea. She complains of posterior headaches. She follows commands well. She is oriented to her current city and where she lives. 11/28/17: Pt awake and alert. She denies any headache, nausea, vomiting, muscle weakness. No chest pain or sob. She is pleasant. She is on Heparin drip. NG tube in place and abdomen with less distention. 11/29/17: Pt awake and alert. Sitting up in chair. Pt apparently got oob on her own and sat in chair. She denies headaches, nausea, vomiting chest pain or sob. She is on O2 via nc. 11/30/17: Pt in Dialysis currently not able to evaluate. (Jose Beckett) Exam Results Vital Signs Date Time Temp Pulse Resp B/P (MAP) Pulse Ox O2 Delivery O2 Flow Rate FiO2 11/30/17 12:57 64 11/30/17 12:00 97.9 20 130/60 (83) 100 11/30/17 10:00 Nasal Cannula 2.00 11/26/17 19:00 40 (Jose Beckett) Physical Examination Pt off floor currently for Dialysis. (Jose Beckett) Medical Decision Making Impression and Plan A: 67 y/o FM with bilateral small subdural hygromas versus chronic subdural hemorrhages. Multiple DVT in UEs and RLE. P: Continue to monitor Neuro exam. Continue with medical care Pt on Heparin drip for DVT. Dr. Luz states pt okay to start oral anticoagulation Coumadin. (Jose Beckett) Attending Statement The exam, history, and the medical decision-making described in the above note were completed with the assistance of the mid-level provider. I reviewed and agree with the findings presented. I attest that I had a [id number] encounter with the patient on the same day, and personally performed and documented my assessment and findings in the medical record. (Nehemias Luz MD) Jose Beckett November 30, 2017 16:15 Nehemias Luz MD November 30, 2017 16:43
[2017-11-30] MEDS ORDERED: WARFARIN SOD 5 MG TAB PO SCH (17:15)
[2017-11-30] MEDS: GENTAMICIN SULFATE 20 MG/2 ML VIAL OTHER PRN (17:26)
[2017-11-30] MEDS: EPOETIN ALFA 10,000 UNITS/ML VIAL IV PUSH PRN (17:26)
[2017-11-30] MEDS: WARFARIN SOD 5 MG TAB PO SCH (18:34)
[2017-11-30] MEDS: MUPIROCIN 2% OINT 1 APPLIC/GM SYR EACH NARE SCH (21:57)
[2017-12-01] VITALS: PULSE 91
[2017-12-01 00:16] VITALS: BP 122/69; PULSE 87; RESP 20; TEMP 97.8; O2SAT 98
[2017-12-01] MEDS: HEPARIN-D5W 25,000 U/250 ML 250 ML IV PRN (00:47)
[2017-12-01] MEDS: CHLORHEXIDINE GLUCONATE 2 % 1 PACK (2 CLOTHS) TOP SCH (04:00)
[2017-12-01] MEDS: SODIUM CHLORIDE 1 GRAM TAB PO SCH (05:03)
[2017-12-01 05:27] VITALS: BP 135/62; PULSE 87; RESP 20; TEMP 99.3; O2SAT 97
[2017-12-01 07:00] VITALS: BP 115/67; PULSE 94; RESP 18; TEMP 98.2; O2SAT 99
[2017-12-01] MEDS: CHLORHEXIDINE 0.12% (ORAL KIT) 15 ML CUP MT SCH (07:10)
[2017-12-01] MEDS: MUPIROCIN 2% OINT 1 APPLIC/GM SYR EACH NARE SCH (09:00)
[2017-12-01] MEDS ORDERED: predniSONE 20 MG TAB PO SCH (09:00)
--- NOTE | 2017-12-01 09:04 | HHI.PR ---
Subjective Remarks Follow-up DVT and diabetes mellitus. Patient refused to be started on peripheral IV. Discussed with nephrology and neurosurgery, may start on subcu Lovenox while INR therapeutic on Coumadin. Patient hyperglycemic on Levemir obtain A1c. Patient wants to be discharged back to [place] today discussed with block and case maker Objective Vitals Vital Signs Date Time Temp Pulse Resp B/P (MAP) Pulse Ox O2 Delivery O2 Flow Rate FiO2 12/01/17 07:00 98.2 94 18 115/67 (83) 99 12/01/17 05:27 99.3 87 20 135/62 (86) 97 12/01/17 02:16 99 Nasal Cannula 2.00 12/01/17 00:16 97.8 87 20 122/69 (86) 98 12/01/17 00:00 91 11/30/17 21:45 99 Nasal Cannula 2.00 11/30/17 21:16 Nasal Cannula 2.00 11/30/17 20:05 98.6 84 20 129/58 (81) 98 11/30/17 20:00 90 11/30/17 18:20 98.0 81 20 118/55 (76) 100 11/30/17 12:57 64 11/30/17 12:00 97.9 78 20 130/60 (83) 100 11/30/17 10:00 99 Nasal Cannula 2.00 I/O 11/30/17 11/30/17 11/30/17 12/01/17 12/01/17 12/01/17 07:00 15:00 23:00 07:00 15:00 23:00 Intake Total 540 ml 250 ml Output Total 2500 ml Balance -1960 ml 250 ml Intake Oral 540 ml IV Total 250 ml Hemodialysis 2500 ml # Voids 0 # Bowel Movements 0 Result Diagram: 11/30/17 0144 11/30/17 0144 Imaging Last Impressions Abdomen Ultrasound 11/28/17 0000 Signed Impressions: Service Date/Time: Tuesday, November 28, 2017 13:29 - CONCLUSION: 1. The patient states that she is status post cholecystectomy. Possible residual gallbladder is seen in the gallbladder fossa. No gallstones or wall thickening seen. 2. Mild splenomegaly. 2 hyperechoic lesions in the spleen likely representing hemangiomas. 3. Echogenic kidneys with thinned cortex suggesting medical renal disease. 4. Some areas of the abdomen are obscured due to patient body habitus. Boubacar Garrison MD Abdomen X-Ray 11/27/17 2300 Signed Impressions: Service Date/Time: Monday, November 27, 2017 23:03 - CONCLUSION: NG tube in good position Archie Ramey MD Upper Extremity Ultrasound 11/26/17 0000 Signed Impressions: Service Date/Time: November 13:28 - CONCLUSION: 1. Thrombosed right upper extremity dialysis graft. Otherwise, no sonographic evidence for right upper extremity DVT. 2. Apparent multiple failed dialysis accesses in the left upper extremity including a thrombosed brachiocephalic fistula with thrombosed pseudoaneurysms. Remaining left upper extremity deep veins are patent without evidence for DVT. Franki Colby MD Lower Extremity Ultrasound 11/26/17 0000 Signed Impressions: Service Date/Time: November 12:56 - CONCLUSION: 1. Positive for deep venous thrombosis in the right calf. 2. Negative for deep venous thrombosis in the left lower extremity. Alen Kerr MD Neck CT 11/25/17 0000 Signed Impressions: Service Date/Time: Saturday, November 25, 2017 22:21 - CONCLUSION: 1. Endotracheal tube in the right mainstem bronchus. This should be retracted. 2. Small thyroid nodules. Jose Zhao MD Head CT 11/25/17 0000 Signed Impressions: Service Date/Time: Saturday, November 25, 2017 22:21 - CONCLUSION: 1. Small bilateral extra-axial fluid collections could be chronic subdural hematomas. Minimal acute blood products seen posteriorly on the left. 2. No midline shift or mass effect. Jose Zhao MD Chest X-Ray 11/25/17 0000 Signed Impressions: Service Date/Time: Saturday, November 25, 2017 17:35 - CONCLUSION: 1. Tip of ET tube is in the orifice of the right mainstem bronchus. Pullback ET tube 3-4 cm. 2. No pneumothorax. Rogelio Cline MD Objective Remarks GENERAL: NAD, A&Ox3 CARDIOVASCULAR: Regular rate and rhythm without murmurs, gallops, or rubs. RESPIRATORY: Breath sounds equal bilaterally. No accessory muscle use. GASTROINTESTINAL: Abdomen soft, non-tender, nondistended. MUSCULOSKELETAL: No cyanosis but with bilateral lower extremity pitting edema as well as right upper extremity also with bruising. SKIN: Warm and dry. Bruise left jaw. Vas-Cath right upper chest NEURO: No focal neurological deficits. Generalized weakness. She is awake Procedures intubation A/P Problem List: (1) Acute encephalopathy ICD Code: G93.40 - Encephalopathy, unspecified (2) Acute hypoxemic respiratory failure ICD Code: J96.01 - Acute respiratory failure with hypoxia (3) COPD with acute exacerbation ICD Code: J44.1 - Chronic obstructive pulmonary disease with (acute) exacerbation (4) CHF (congestive heart failure) ICD Code: I50.9 - Heart failure, unspecified (5) Sudural hygroma with probable acute hemorrhage (6) Coagulopathy ICD Code: D68.9 - Coagulation defect, unspecified Assessment and Plan 67-year-old female admitted secondary to acute respiratory failure with COPD exacerbation and findings of intracranial hemorrhage which appear to be stable at this point. Chronic subdural hygroma versus hemorrhage, with acute component on left Acute encephalopathy most likely metabolic History of depression Neurosurgery following No intracranial surgery planned Hemorrhages are small and appear stable Continue Keppra Follow sodium levels Acute hypoxemic and hypercapnic respiratory failure Acute COPD exacerbation History of COPD Status post intubation now extubated Continue recovery Continue to monitor respiratory status closely S/p cefepime Follow cultures Continue DuoNeb scheduled Continue as needed respiratory treatments Dc Solu-Medrol switched to prednisone for 3 days only patient thru 12/04 History of atrial fibrillation History of hypertension Stable Follow on telemetry Follow blood pressures Resume baseline blood pressure treatments End-stage renal disease on hemodialysis Nephrology following Status post dialysis Follow CBC and CMP Continue renal diet DVT right calf History of upper extremity DVT Discontinue IV heparin start subcu Lovenox 1 mg/kg daily until INR therapeutic. Coumadin preferred can be reversed dw NS Monitor PTT. 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 A1c Atypical stool is present (white patches, no exposure to calcium or contrast in the last 3 days). Further stool studies to cover parasites or fungus are ordered. Ricardo RN DVT prophylaxis Lovenox and Coumadin SCDs Discharge Planning Dc to SNF when arranged Mike Tatum MD December 01, 2017 09:04
[2017-12-01] MEDS: levETIRAcetam 500 MG TAB PO SCH (09:34)
[2017-12-01] MEDS: SEVELAMER CARBONATE 800 MG TAB PO SCH ×2 (09:34→13:40)
[2017-12-01] MEDS: INSULIN DETEMIR 100 UNITS/ML VIAL SQ SCH (09:35)
[2017-12-01] MEDS: INSULIN ASPART SUPPLEMENTAL SCALE SQ SCH ×2 (09:53→12:45)
[2017-12-01 10:37] VITALS: PULSE 90
--- NOTE | 2017-12-01 11:27 | HHI.NPPN ---
Subjective Renal Failure: Chronic, End Stage Renal Disease Interval History Awake and alert. IV access has been lost. Pending transfer back to [place]. (Concepción Bess) Review of Systems Heme-Lymph Heme-Lymph: Bruising Heme-Lymph Remarks around neck (Concepción Bess) Objective Data Data Vital Signs Date Time Temp Pulse Resp B/P (MAP) Pulse Ox O2 Delivery O2 Flow Rate FiO2 12/01/17 10:37 90 12/01/17 07:00 98.2 94 18 115/67 (83) 99 12/01/17 05:27 99.3 87 20 135/62 (86) 97 12/01/17 02:16 99 Nasal Cannula 2.00 12/01/17 00:16 97.8 87 20 122/69 (86) 98 12/01/17 00:00 91 11/30/17 21:45 99 Nasal Cannula 2.00 11/30/17 21:16 Nasal Cannula 2.00 11/30/17 20:05 98.6 84 20 129/58 (81) 98 11/30/17 20:00 90 11/30/17 18:20 98.0 81 20 118/55 (76) 100 11/30/17 12:57 64 11/30/17 12:00 97.9 78 20 130/60 (83) 100 (Concepción Bess) -: 11/30/17 0144 11/30/17 0144 Tubes & Lines: Perma-Cath (Concepción Bess) Physical Exam General Appearance: Well Developed, Well Nourished, Comfortable, Obese (Concepción Bess) Throat Throat Exam: Oral Mucosa [place] & Moist (Concepción Bess) Neck Neck Remarks bruising around neck (Concepción Bess) Pulmonary Resp Exam: Breath Sounds Equal, No Distress (Concepción Bess) Cardiology CV Exam: Regular, Normal Sinus Rhythm (Concepción Bess) Gastrointestinal/Abdomen GI Exam: Soft, Non-Tender, Bowel Sounds Present (Concepción Bess) Musculoskeletal MS Exam: Joints Intact, Normal Tone, Unable to Ambulate (Concepción Bess) Integumentary Skin Exam: Warm, Dry, Intact Skin Remarks bruising around neck (Concepción Bess) Neurologic Neuro Exam: Alert, Oriented, Moving All Extremities (Concepción Bess) Psychiatric Psych Exam: Appropriate Responses (Concepción Bess) Assessment/Plan Discussed Condition With: Patient Assessment Summary: Anemia of CKD, End Stage Renal Disease Problem List: (1) ESRD (end stage renal disease) ICD Codes: N18.6 - End stage renal disease Plan: Continue dialysis support MWF, tolerated 2.5L fluid removal yesterday Permcath for HD use. Informs us thrombosed AVF on left was recently surgically unsuccessful. Monitor fluid and electrolytes intermittently. Avoid Gadolinium and IVF administration Okay to place Midline. On Sevelamer with meals (2) Sudural hygroma with probable acute hemorrhage Plan: Neurosurgery followed, non surgical management. Monitor neuro status Stop NaCl tabs. (3) Acute hypoxemic respiratory failure ICD Codes: J96.01 - Acute respiratory failure with hypoxia Plan: Improved. s/p successful extubation 11/26 (4) COPD with acute exacerbation ICD Codes: J44.1 - Chronic obstructive pulmonary disease with (acute) exacerbation Plan: Improved Oxygen and deep breathing/coughing/pulmonary toilet/IS as tolerated (5) CHF (congestive heart failure) ICD Codes: I50.9 - Heart failure, unspecified Plan: EF 50-55% Monitor fluid status Fluid removal with dialysis as tolerated (6) Anemia ICD Codes: D64.9 - Anemia, unspecified Plan: Epogen with dialysis. Give a dose of venofer. (7) DVT (deep venous thrombosis) ICD Codes: I82.409 - Acute embolism and thrombosis of unspecified deep veins of unspecified lower extremity Plan: In right calf Neurosurgery approved heparin gtt with coumadin bridge. Consider switching to Apixaban: 2.5 mg PO BID. Plan Patient can be discharged from renal standpoint. (Concepción Bess) Problem List: (1) ESRD (end stage renal disease) ICD Codes: N18.6 - End stage renal disease Plan: Continue dialysis support MWF, tolerated 2.5L fluid removal yesterday Permcath for HD use. Informs us thrombosed AVF on left was recently surgically unsuccessful. Monitor fluid and electrolytes intermittently. Avoid Gadolinium and IVF administration Okay to place Midline. On Sevelamer with meals (2) Sudural hygroma with probable acute hemorrhage Plan: Neurosurgery followed, non surgical management. Monitor neuro status Stop NaCl tabs. (3) Acute hypoxemic respiratory failure ICD Codes: J96.01 - Acute respiratory failure with hypoxia Plan: Improved. s/p successful extubation 11/26 (4) COPD with acute exacerbation ICD Codes: J44.1 - Chronic obstructive pulmonary disease with (acute) exacerbation Plan: Improved Oxygen and deep breathing/coughing/pulmonary toilet/IS as tolerated (5) CHF (congestive heart failure) ICD Codes: I50.9 - Heart failure, unspecified Plan: EF 50-55% Monitor fluid status Fluid removal with dialysis as tolerated (6) Anemia ICD Codes: D64.9 - Anemia, unspecified Plan: Epogen with dialysis. Give a dose of venofer. (7) DVT (deep venous thrombosis) ICD Codes: I82.409 - Acute embolism and thrombosis of unspecified deep veins of unspecified lower extremity Plan: In right calf Neurosurgery approved heparin gtt with coumadin bridge. Consider switching to Apixaban: 2.5 mg PO BID. Plan patient was seen and examined. Agree with above assessment and plan. Discussed with Dr. Tatum. Patient to be on Coumadin, bridging with Lovenox, Lovenox should be given once daily. (Jeovany Sutherland MD) Concepción Bess December 01, 2017 11:27 Jeovany Sutherland MD December 01, 2017 21:31
[2017-12-01 12:00] VITALS: BP 131/61; PULSE 96; RESP 18; TEMP 98.5; O2SAT 94
--- NOTE | 2017-12-01 12:02 | RADRPT ---
EXAM DATE/TIME: 12/01/2017 11:25 [facility] COMPARISON: No previous studies available for comparison. INDICATIONS : Right arm hematoma. MEDICAL HISTORY : Chronic obstructive pulmonary disease. Congestive heart failure. Deep venous thrombosis. End stage re nal disease. Diabetes. Atrial fibrillation. SURGICAL HISTORY : Appendectomy. Cholecystectomy. Hysterectomy. Tonsillectomy. Dialysis access placement. ENCOUNTER: Initial ACUITY: 4-6 days PAIN SCORE: 5/10 LOCATION: Right arm. AREA EVALUATED: Right anterior arm and forearm. FINDINGS: A focused ultrasound of the right upper extremity was performed. There is nonspecific edema in the ng bcutaneous soft tissues. There is no loculated fluid collections to suggest hematoma. CONCLUSION: 1. No evidence of focal hematoma. 2. Nonspecific edema is seen throughout the subcutaneous soft tissues of the right upper extremity. Rogelio Cline MD on December 01, 2017 at 11:59 Board Certified Radiologist. This report was verified electronically.
[2017-12-01] MEDS ORDERED: LEVE500 PO (12:49)
[2017-12-01] MEDS ORDERED: SEVEL800 PO (12:49)
[2017-12-01] MEDS ORDERED: BACTOIN EACH NARE (12:49)
[2017-12-01] MEDS ORDERED: COUM5TAB PO (12:49)
[2017-12-01] MEDS ORDERED: LEVEMIR SQ (12:49)
[2017-12-01] MEDS ORDERED: PRED20 PO (12:49)
--- NOTE | 2017-12-01 12:50 | HHI.DCPOC ---
Discharge Care Plan Diagnosis: (1) Sudural hygroma with probable acute hemorrhage Your Health Problems Are: Difficulty with ADL Exercise Tolerance Goals to Promote Your Health * To prevent worsening of your condition and complications * To maintain your health at the optimal level Directions to Meet Your Goals Take your medications as prescribed Follow your dietary instruction Follow activity as directed Keep your appointments as scheduled Take your immunizations and boosters as scheduled If your symptoms worsen call your PCP, if no PCP go to Urgent Care Center or Emergency Room Smoking is Dangerous to Your Health. Avoid second hand smoke Call the 24-hour hour crisis hotline for domestic abuse at Mike Tatum MD December 01, 2017 12:50
[2017-12-01] MEDS ORDERED: NOVOLOGSS SQ (12:53)
[2017-12-01] MEDS ORDERED: ENOX120P SQ (12:53)
[2017-12-01] MEDS ORDERED: IRON SUCROSE INJ 100 MG in SODIUM CHLORIDE 0.9% INJ 100 ML IV SCH (13:00)
--- NOTE | 2017-12-01 13:19 | HHI.NSPN ---
History Chief Complaint: Bilateral subdural hygromas. Interval History Patient is a 67-year-old female with past medical history significant for COPD, end-stage renal disease, history of atrial fibrillation, history of upper extremity DVT, CHF, diabetes who was brought to the [facility] emergency department for generalized weakness ongoing for a month and increasing shortness of breath. She underwent workup for altered mentation which showed bilateral chronic subdural hygromas with a possible acute hemorrhage. Request to transfer to [facility] for further evaluation and treatment with neurosurgery consultation. Apparently patient was hypoxemic on ABG pH 7.296 PCO2 38.7, oxygen saturation was 84 and a PO2 of 54. Patient was placed on 50% nonrebreather for transportation (per critical care note) 11/26/17: Pt sedated on Diprivan and Fentanyl drips. Held for exam. She opens her eyes to voice and gets very agitated with shaking in extremities. She is not following commands. 11/27/17: Patient awake and alert. She is extubated today. She appears comfortable in bed with no dyspnea. She complains of posterior headaches. She follows commands well. She is oriented to her current city and where she lives. 11/28/17: Pt awake and alert. She denies any headache, nausea, vomiting, muscle weakness. No chest pain or sob. She is pleasant. She is on Heparin drip. NG tube in place and abdomen with less distention. 11/29/17: Pt awake and alert. Sitting up in chair. Pt apparently got oob on her own and sat in chair. She denies headaches, nausea, vomiting chest pain or sob. She is on O2 via nc. 11/30/17: Pt in Dialysis currently not able to evaluate. 12/01/17: Pt awake and alert. Denies headaches, nausea, vomiting. Follows commands well. Pt wants to go back home. Review of Systems General: Negative for: fever, chills, insomnia Respiratory: Negative for: shortness of breath, cough, sputum Cardiovascular: Negative for: chest pain Gastrointestinal: Negative for: nausea, vomitting, diarrhea, constipation Exam Results Vital Signs Date Time Temp Pulse Resp B/P (MAP) Pulse Ox O2 Delivery O2 Flow Rate FiO2 12/01/17 12:00 98.5 96 18 131/61 (84) 94 12/01/17 02:16 Nasal Cannula 2.00 Intake and Output 12/01/17 12/01/17 12/02/17 08:00 16:00 00:00 Intake Total 250 ml Balance 250 ml Physical Examination General: Pt resting in bed in NAD. Eyes: Pupils equal. Sclera anicteric. Resp: CTA bilaterally. Heart: NSR no murmurs Abd: Soft positive bs. Obese. Skin: Ecchymosis bilateral forearms. Muscle: Moves all 4 extremities with symmetric strength. Neuro: Pt awake and alert. Pupils 3mm bilaterally. Reactive bilaterally. Follows commands well. Speech clear and appropriate. Lab, Micro, Other Results Last Impressions Upper Extremity Ultrasound 12/01/17 0000 Signed Impressions: Service Date/Time: Friday, December 01, 2017 11:25 - CONCLUSION: 1. No evidence of focal hematoma. 2. Nonspecific edema is seen throughout the subcutaneous soft tissues of the right upper extremity. Rogelio Cline MD Abdomen Ultrasound 11/28/17 0000 Signed Impressions: Service Date/Time: Tuesday, November 28, 2017 13:29 - CONCLUSION: 1. The patient states that she is status post cholecystectomy. Possible residual gallbladder is seen in the gallbladder fossa. No gallstones or wall thickening seen. 2. Mild splenomegaly. 2 hyperechoic lesions in the spleen likely representing hemangiomas. 3. Echogenic kidneys with thinned cortex suggesting medical renal disease. 4. Some areas of the abdomen are obscured due to patient body habitus. Boubacar Garrison MD Abdomen X-Ray 11/27/17 2300 Signed Impressions: Service Date/Time: Monday, November 27, 2017 23:03 - CONCLUSION: NG tube in good position Archie Ramey MD Lower Extremity Ultrasound 11/26/17 0000 Signed Impressions: Service Date/Time: November 12:56 - CONCLUSION: 1. Positive for deep venous thrombosis in the right calf. 2. Negative for deep venous thrombosis in the left lower extremity. Alen Kerr MD Neck CT 11/25/17 0000 Signed Impressions: Service Date/Time: Saturday, November 25, 2017 22:21 - CONCLUSION: 1. Endotracheal tube in the right mainstem bronchus. This should be retracted. 2. Small thyroid nodules. Jose Zhao MD Head CT 11/25/17 Signed Impressions: Service Date/Time: Saturday, November 25, 2017 22:21 - CONCLUSION: 1. Small bilateral extra-axial fluid collections could be chronic subdural hematomas. Minimal acute blood products seen posteriorly on the left. 2. No midline shift or mass effect. Jose Zhao MD Chest X-Ray 11/25/17 Signed Impressions: Service Date/Time: Saturday, November 25, 2017 17:35 - CONCLUSION: 1. Tip of ET tube is in the orifice of the right mainstem bronchus. Pullback ET tube 3-4 cm. 2. No pneumothorax. Rogelio Cline MD Medical Decision Making Impression and Plan A: 67 y/o FM with bilateral small subdural hygromas versus chronic subdural hemorrhages. Multiple DVT in UEs and RLE. P: Pt being transferred back to [facility]. Continue with medical care. Recommend follow up CT head in 2-3 weeks without contrast with local neurosurgery follow up. Jose Beckett December 01, 2017 1:19 pm
[2017-12-01] MEDS: WARFARIN SOD 5 MG TAB PO SCH (13:41)
[2017-12-01] MEDS ORDERED: ENOXAPARIN SODIUM 120 MG/0.8 ML SYRINGE SQ SCH (15:00)
[2017-12-01 16:04] LABS: HEMOGLOBIN A1C 6.4 % (4.3-6.0)
--- NOTE | 2017-12-01 17:49 | HHI.DS ---
Discharge Summary Admission Date November 25, 2017 at 16:48 Discharge Date: December 01, 2017 Admitting Diagnosis (1) Acute encephalopathy ICD Code: G93.40 - Encephalopathy, unspecified Diagnosis: Principal (2) Acute hypoxemic respiratory failure ICD Code: J96.01 - Acute respiratory failure with hypoxia Diagnosis: Principal (3) COPD with acute exacerbation ICD Code: J44.1 - Chronic obstructive pulmonary disease with (acute) exacerbation Diagnosis: Principal (4) CHF (congestive heart failure) ICD Code: I50.9 - Heart failure, unspecified Diagnosis: Principal (5) Sudural hygroma with probable acute hemorrhage Diagnosis: Principal (6) Coagulopathy ICD Code: D68.9 - Coagulation defect, unspecified Diagnosis: Principal Procedures intubation Brief History - From Admission Patient is a 67-year-old female with past medical history significant for COPD, end-stage renal disease, history of atrial fibrillation, history of upper extremity DVT, CHF, diabetes, who was brought to the [facility] emergency department for generalized weakness ongoing for a month and increasing shortness of breath. She underwent workup for altered mentation which showed bilateral chronic subdural hygromas with a possible acute hemorrhage. Transferred to [facility] for further evaluation and treatment with neurosurgery consultation. Apparently patient was hypoxemic at [place], ABG pH 7.296 PCO2 38.7, oxygen saturation was 84 and a PO2 of 54. Patient was placed on 50% nonrebreather for transportation. Also patient was on Coumadin until several days ago, for upper extremity DVT. Her INR was as high as 5 at that time and Coumadin was held. Once it came down to less than 1.7 patient was started on Eliquis. With CT showing SDH patient was given K [facility] before transfer. I evaluated the patient immediately after arrival to the [facility]. Patient was somnolent but wakes up and follows basic commands, he was oriented only to person with some garbled speech. However patient appeared to be in moderate to severe respiratory distress with labored breathing. Evidently air entry was significantly diminished bilaterally indicating COPD exacerbation/CHF. She was quite tachypneic and patient was intubated and placed on mechanical ventilation. Patient also showed twitching of the bilateral upper extremity with jerking movements prior to intubation. I reviewed the CT of the head from [facility] with . And appears to show chronic subdural hygroma versus subdural hematoma, with some probable acute blood on the left side. Chest x-ray shows pulmonary vascular congestion. Patient will be started on emergency dialysis as have already contacted nephrology. After dialysis patient will be sent for a CT of the head and also CT of the neck as the patient has a large ecchymosis involving the anterior upper neck and anterior chin. CBC/BMP: 11/30/17 0144 11/30/17 0144 Significant Findings Laboratory Tests Test 11/28/17 18:13 11/29/17 03:54 11/29/17 11:14 11/29/17 17:45 Activated Partial Thromboplast Time 37.5 SEC (24.3-30.1) 31.7 SEC (24.3-30.1) 35.4 SEC (24.3-30.1) 66.7 SEC (24.3-30.1) Test 11/29/17 23:54 11/30/17 01:44 11/30/17 03:44 11/30/17 11:34 Activated Partial Thromboplast Time 113.2 SEC (24.3-30.1) 104.3 SEC (24.3-30.1) 62.9 SEC (24.3-30.1) 42.6 SEC (24.3-30.1) Red Blood Count 2.96 MIL/MM3 (4.00-5.30) Hemoglobin 9.5 GM/DL (11.6-15.3) Hematocrit 27.6 % (35.0-46.0) Neutrophils (%) (Auto) 88.0 % (16.0-70.0) Lymphocytes (%) (Auto) 6.2 % (9.0-44.0) Lymphocytes # (Auto) 0.5 TH/MM3 (1.0-4.8) Blood Urea Nitrogen 70 MG/DL (7-18) Creatinine 8.48 MG/DL (0.50-1.00) Random Glucose 194 MG/DL (74-106) Total Protein 6.1 GM/DL (6.4-8.2) Albumin 3.2 GM/DL (3.4-5.0) Calcium Level 8.2 MG/DL (8.5-10.1) Aspartate Amino Transf (AST/SGOT) 9 U/L (15-37) Chloride Level 95 MEQ/L (98-107) Estimat Glomerular Filtration Rate 5 ML/MIN (>89) Hemoglobin A1c 6.4 % (4.3-6.0) Imaging Last Impressions Upper Extremity Ultrasound 12/01/17 0000 Signed Impressions: Service Date/Time: Friday, December 01, 2017 11:25 - CONCLUSION: 1. No evidence of focal hematoma. 2. Nonspecific edema is seen throughout the subcutaneous soft tissues of the right upper extremity. Rogelio Cline MD Abdomen Ultrasound 11/28/17 0000 Signed Impressions: Service Date/Time: Tuesday, November 28, 2017 13:29 - CONCLUSION: 1. The patient states that she is status post cholecystectomy. Possible residual gallbladder is seen in the gallbladder fossa. No gallstones or wall thickening seen. 2. Mild splenomegaly. 2 hyperechoic lesions in the spleen likely representing hemangiomas. 3. Echogenic kidneys with thinned cortex suggesting medical renal disease. 4. Some areas of the abdomen are obscured due to patient body habitus. Boubacar Garrison MD Abdomen X-Ray 11/27/17 2300 Signed Impressions: Service Date/Time: Monday, November 27, 2017 23:03 - CONCLUSION: NG tube in good position Archie Ramey MD Lower Extremity Ultrasound 11/26/17 0000 Signed Impressions: Service Date/Time: November 12:56 - CONCLUSION: 1. Positive for deep venous thrombosis in the right calf. 2. Negative for deep venous thrombosis in the left lower extremity. Alen Kerr MD Neck CT 11/25/17 0000 Signed Impressions: Service Date/Time: Saturday, November 25, 2017 22:21 - CONCLUSION: 1. Endotracheal tube in the right mainstem bronchus. This should be retracted. 2. Small thyroid nodules. Jose Zhao MD Head CT 11/25/17 0000 Signed Impressions: Service Date/Time: Saturday, November 25, 2017 22:21 - CONCLUSION: 1. Small bilateral extra-axial fluid collections could be chronic subdural hematomas. Minimal acute blood products seen posteriorly on the left. 2. No midline shift or mass effect. Jose Zhao MD Chest X-Ray 11/25/17 0000 Signed Impressions: Service Date/Time: Saturday, November 25, 2017 17:35 - CONCLUSION: 1. Tip of ET tube is in the orifice of the right mainstem bronchus. Pullback ET tube 3-4 cm. 2. No pneumothorax. Rogelio Cline MD PE at Discharge GENERAL: NAD, A&Ox3 CARDIOVASCULAR: Regular rate and rhythm without murmurs, gallops, or rubs. RESPIRATORY: Breath sounds equal bilaterally. No accessory muscle use. GASTROINTESTINAL: Abdomen soft, non-tender, nondistended. MUSCULOSKELETAL: No cyanosis but with bilateral lower extremity pitting edema as well as right upper extremity also with bruising. SKIN: Warm and dry. Bruise left jaw. Vas-Cath right upper chest NEURO: No focal neurological deficits. Generalized weakness. She is awake Hospital Course 67-year-old female admitted secondary to acute respiratory failure with COPD exacerbation and findings of intracranial hemorrhage which appear to be stable at this point. Chronic subdural hygroma versus hemorrhage, with acute component on left Acute encephalopathy most likely metabolic History of depression Neurosurgery following No intracranial surgery planned Hemorrhages are small and appear stable Continue Keppra Follow sodium levels Acute hypoxemic and hypercapnic respiratory failure Acute COPD exacerbation History of COPD Status post intubation now extubated Continue recovery Continue to monitor respiratory status closely S/p cefepime Follow cultures Continue DuoNeb scheduled Continue as needed respiratory treatments Dc Solu-Medrol switched to prednisone for 3 days only patient thru 12/04 History of atrial fibrillation History of hypertension Stable Follow on telemetry Follow blood pressures Resume baseline blood pressure treatments End-stage renal disease on hemodialysis Nephrology following Status post dialysis Follow CBC and CMP Continue renal diet DVT right calf History of upper extremity DVT Discontinue IV heparin start subcu Lovenox 1 mg/kg daily until INR therapeutic. Coumadin preferred can be reversed dw NS Monitor PTT. 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 A1c Atypical stool is present (white patches, no exposure to calcium or contrast in the last 3 days). Further stool studies to cover parasites or fungus are ordered. Ricardo RN DVT prophylaxis Lovenox and Coumadin SCDs Pt Condition on Discharge: Stable Discharge Disposition: Discharge to SNF Discharge Time: > 30 minutes Discharge Instructions DIET: Follow Instructions for: Diabetic Diet, Renal Failure Diet Activities you can perform: Regular-No Restrictions Activities to Avoid: Driving Follow up Referrals: Nephrology - 1 Week Neurosurgery - 1 Week PCP Follow-up - 1 Week New Orders: PT/INR New Medications: Enoxaparin Inj (Lovenox Inj) 120 Mg/0.8 Ml Syr 110 MG SQ Q24H for Prevent Blood Clot, #7 INJECTION dc when INR > 2 Insulin Aspart Inj (Novolog Inj) 100 Unit/Ml Inj 1 UNITS SQ ACHS for Blood Sugar Management, #30 INJECTION Fasting Sugar <200=No coverage Max Dose HS: 2U Max Dose @ 3am=0 U Bld. Sugar <70=No Insulin 150-199=1 U 200-249=3 U 250-299=5 U 300-349=7 U >349=9 U Insulin Detemir Inj (Levemir Inj) 1,000 unit/ 10 ML Vial 15 UNITS SQ DAILY for Blood Sugar Management, #30 INJECTION Do not mix with any other Insulin. Levetiracetam (Keppra) 500 Mg Tab 500 MG PO Q12HR for Control Seizures, #60 TAB Mupirocin Nasal Oint (Bactroban Nasal Oint) 2% Oint 1 APPLIC EACH NARE BID for Infection, #1 TUBE dc 12/07/17 Single-use tubes. Prednisone (Prednisone) 20 Mg Tab 20 MG PO DAILY for Control Inflammation, #3 TAB Sevelamer Carbonate (Renvela) 800 Mg Tab 800 MG PO TIDAC for Electrolyte Replacement, #90 TAB Warfarin (Coumadin) 5 Mg Tab 5 MG PO DAILY@1600 for Prevent Blood Clot, #30 TAB INR 2-3 Mike Tatum MD December 01, 2017 17:49
== END 2017-12-01 15:12 | DRG 208 ==
LOC: N03B 10:40 → OBSVTOIN 16:48 → N05B 11-28 16:46
PROVIDERS: ADMIT Internal Medicine; ATTEND Internal Medicine
PROC: 5A1945Z Respiratory Ventilation, 24-96 Consecutive Hours (ICD-10-PCS; principal; 2017-11-25)
PROC: 0BH18EZ Insertion of Endotracheal Airway into Trachea, Via Natural or Artificial Opening Endoscopic (ICD-10-PCS; 2017-11-25)
PROC: 5A1D70Z Performance of Urinary Filtration, Intermittent, Less than 6 Hours Per Day (ICD-10-PCS; 2017-11-25)
DX: J96.01 Acute respiratory failure with hypoxia (principal); G93.41 Metabolic encephalopathy; I62.03 Nontraumatic chronic subdural hemorrhage; N18.6 End stage renal disease; I13.2 Hypertensive heart and chronic kidney disease with heart failure and with stage 5 chronic kidney disease, or end stage renal disease; J44.1 Chronic obstructive pulmonary disease with (acute) exacerbation; I82.4Z1 Acute embolism and thrombosis of unspecified deep veins of right distal lower extremity; J96.02 Acute respiratory failure with hypercapnia; E11.22 Type 2 diabetes mellitus with diabetic chronic kidney disease; I48.91 Unspecified atrial fibrillation; E11.65 Type 2 diabetes mellitus with hyperglycemia; I50.9 Heart failure, unspecified; D63.1 Anemia in chronic kidney disease; E78.5 Hyperlipidemia, unspecified; T38.0X5A Adverse effect of glucocorticoids and synthetic analogues, initial encounter; E66.01 Morbid (severe) obesity due to excess calories; F32.9 Major depressive disorder, single episode, unspecified; D18.1 Lymphangioma, any site; R79.1 Abnormal coagulation profile; Z90.710 Acquired absence of both cervix and uterus; Z90.49 Acquired absence of other specified parts of digestive tract; Z86.718 Personal history of other venous thrombosis and embolism; Z99.2 Dependence on renal dialysis; Z88.5 Allergy status to narcotic agent; Z88.2 Allergy status to sulfonamides; Z91.048 Other nonmedicinal substance allergy status; Z79.4 Long term (current) use of insulin
CPT/HCPCS: 31500; 36600; 70450; 70490; 71045; 74018; 76700; 76937; 80053; 80074; 80076; 82140; 82150; 82805; 82948; 83036; 83540; 83550; 83605; 83615; 83690; 83735; 84100; 85025; 85027; 85610; 85730; 86403; 87040; 87070; 87077; 87186; 87205; 87207; 87328; 87329; 87506; 87641; 90935; 93306; 93931; 93970; 94002; 94003; 94150; 94640; 94664; 95819; 96374; 96375; J0692; J0780; J1580; J1644; J1815; J2250; J2405; J2920; J3370; J7050; J7512; Q4081

== ENCOUNTER 2017-12-25 18:15 | Inpatient (IN) | payer MEDICARE, BC ==
[~2017-12-25] VITALS: Ht 160 cm; Wt 114.3 kg
[~2017-12-25 18:15] MED LIST: BACTOIN EACH NARE; COUM5TAB PO; ENOX120P SQ; LEVE500 PO; LEVEMIR SQ; NOVOLOGSS SQ; PRED20 PO; SEVEL800 PO
[2017-12-25 18:48] VITALS: PULSE 76
[2017-12-25 20:00] VITALS: PULSE 64
[2017-12-25 20:02] VITALS: O2SAT 98
[2017-12-25] MEDS: SODIUM CHLOR 0.9% 1000 ML INJ 1,000 ML IV SCH (21:27)
[2017-12-25] MEDS ORDERED: LACTULOSE SYRUP 20 GM/30 ML CUP PO PRN (21:30)
[2017-12-25] MEDS ORDERED: SENNOSIDES 8.6 MG TAB PO PRN (21:30)
[2017-12-25] MEDS ORDERED: SODIUM CHLORIDE 0.9% FLUSH 10 ML FLUSH IV FLUSH PRN (21:30)
[2017-12-25] MEDS ORDERED: MAGNESIUM HYDROXIDE SUSP 30 ML CUP PO PRN (21:30)
[2017-12-25] MEDS ORDERED: GLUCAGON 1 MG/ML VIAL OTHER PRN (21:30)
[2017-12-25] MEDS ORDERED: DEXTROSE 50% IN WATER 50 ML VIAL(D50) IV PUSH PRN (21:30)
[2017-12-25] MEDS ORDERED: RESP: ALBUTEROL 2.5 MG/IPRATROPIUM 0.5 MG NEB (PRN) INH (21:30)
[2017-12-25] MEDS ORDERED: CHLORHEXIDINE GLUCONATE 2 % 1 PACK (2 CLOTHS) TOP PRN (21:30)
[2017-12-25] MEDS ORDERED: NURSING INFORMATION XX SCH (21:30)
[2017-12-25] MEDS ORDERED: BISACODYL 10 MG SUPP RECTAL PRN (21:30)
--- NOTE | 2017-12-25 21:44 | HHI.HP ---
HPI Service Critical Care Medicine Primary Care Physician No Primary Care Physician Admission Diagnosis Diagnosis: Travel History International Travel<30 Days: No Contact w/Intl Traveler <30 Da: No Traveled to Known Affected Are: No History of Present Illness 67-year-old female who was just here November 25 for subdural hematoma, presented today to [facility] emergency department for an evaluation of generalized weakness with onset of one day prior to presentation. The patient states she get dialyzed on Thursday. The patient says she was having a shortness of breath and fatigue. She denies any chest pain, fevers or any other pertinent signs and symptoms. The patient was Coumadin at home and her INR at the [facility] was found to be 7.5. The CT of the head obtained at the [facility] shows previously demonstrated chronic right subdural hematoma appears essentially resolved. Residual left subdural collection demonstrates some hyperdense elements suggesting there may be some recurrent hemorrhage since previous exam but the collection measures only 5 mm in greatest thickness with no significant mass-effect or midline shift. Hospice the patient was transferred here for higher level of care and neurosurgical evaluation, shortly after the patient has received [facility]. Review of Systems ROS Unobtainable patient still lethargic Past Family Social History Allergies: Coded Allergies: Sulfa (Sulfonamide Antibiotics) (Verified Allergy, Unknown, 11/25/17) gabapentin (Verified Allergy, Unknown, 11/25/17) metoclopramide (Verified Allergy, Unknown, 11/25/17) morphine (Verified Allergy, Unknown, 11/25/17) Past Medical History COPD CHF End-stage renal disease on hemodialysis Upper extremity DVT Morbid obesity Type 2 diabetes Atrial fibrillation per transfer history Dyslipidemia Hypertension Past Surgical History Appendectomy Cholecystectomy Tonsillectomy Hysterectomy Dialysis access placement Reported Medications Lipitor Vitamin D3 Fish oil Requip Renvela Valsartan [place] Carvedilol Lasix Wellbutrin Lantus insulin Fosrenol Norvasc Lovaza Duloxetine Venlafaxine Lyrica Active Ordered Medications Current Medications Medications (Trade) Dose Ordered Sig/Joseph Route PRN Reason Start Time Stop Time Status Last Admin Dose Admin Levetriacetam (Keppra) 500 mg Q12HR PO 12/26/17 09:00 UNV Mupirocin (Bactroban Nasal 2% Oint) 1 applic BID EACH NARE 12/26/17 09:00 UNV Prednisone (Deltasone) 20 mg DAILY PO 12/26/17 09:00 UNV Sevelamer Carbonate (Renvela) 800 mg TIDAC PO 12/26/17 08:00 UNV Dextrose (D50w (Vial) Inj) 50 ml UNSCH PRN IV PUSH HYPOGLYCEMIA-SEE COMMENTS 12/25/17 21:30 UNV Glucagon (Glucagon Inj) 1 mg UNSCH PRN OTHER HYPOGLYCEMIA-SEE COMMENTS 12/25/17 21:30 UNV Insulin Human Regular (NovoLIN R SUPPLEMENTAL SCALE) 1 ACHS SLIDING SCALE SQ 12/26/17 08:00 UNV Sodium Chloride 1,000 ml @ 84 mls/hr [id number] IV 12/25/17 21:27 UNV Sodium Chloride (NS Flush) 2 ml UNSCH PRN IV FLUSH FLUSH AFTER USING IV ACCESS 12/25/17 21:30 UNV Sodium Chloride (NS Flush) 2 ml BID IV FLUSH 12/26/17 09:00 UNV Acetaminophen (Tylenol) 650 mg Q6H PRN PO PAIN 1-10 AND/OR FEVER >101F 12/25/17 21:30 UNV Famotidine (Pepcid Inj) 20 mg Q12HR IV PUSH 12/26/17 09:00 UNV Ondansetron HCl (Zofran Inj) 4 mg Q6H PRN IV PUSH NAUSEA OR VOMITING 12/25/17 21:30 UNV Temazepam (Restoril) 15 mg HS PRN PO INSOMNIA 12/25/17 21:30 UNV Albuterol/ Ipratropium (Duoneb Neb) 1 ampule Q2HR NEB PRN INH WHEEZING 12/25/17 21:30 UNV Miscellaneous Information ([facility] Nursing Information) 1 Q361D XX 12/25/17 21:30 UNV Chlorhexidine Gluconate (Chlorhexidine 2% Cloth) 3 pack Taper DAILY@04 TOP 12/26/17 04:00 12/22/18 03:59 UNV Chlorhexidine Gluconate (Chlorhexidine 2% Cloth) 3 pack UNSCH PRN TOP HYGIENIC CARE 12/25/17 21:30 UNV Senna/Docusate Sodium (Teresa-Colace) 1 tab BID PO 12/26/17 09:00 UNV Magnesium Hydroxide (Milk Of Magnesia Liq) 30 ml Q12H PRN PO Mild constipation 12/25/17 21:30 UNV Sennosides (Senokot) 17.2 mg Q12H PRN PO Moderate constipation 12/25/17 21:30 UNV Bisacodyl (Dulcolax Supp) 10 mg DAILY PRN RECTAL SEVERE CONSITIPATION 12/25/17 21:30 UNV Lactulose (Lactulose Liq) 30 ml DAILY PRN PO SEVERE CONSITIPATION 12/25/17 21:30 UNV Family History Unable to obtain at this time Social History Unable to obtain at this time Physical Exam Vital Signs Vital Signs Date Time Temp Pulse Resp B/P (MAP) Pulse Ox O2 Delivery O2 Flow Rate FiO2 12/25/17 20:02 98 Nasal Cannula 4.00 12/25/17 18:48 99 Nasal Cannula 4.00 12/25/17 18:48 76 Physical Exam GENERAL: Well-nourished, well-developed patient. Lethargic SKIN: Warm and dry. HEAD: Normocephalic. EYES: No scleral icterus. No injection or drainage. NECK: Supple, trachea midline. No JVD or lymphadenopathy. CARDIOVASCULAR: Regular rate and rhythm without murmurs, gallops, or rubs. RESPIRATORY: Breath sounds equal bilaterally. No accessory muscle use. GASTROINTESTINAL: Abdomen soft, non-tender, nondistended. MUSCULOSKELETAL: No cyanosis, or edema. BACK: Nontender without obvious deformity. NEURO EXAM: GCS: 12 Mental Status: The patient is lethargic but arousable. Nonfocal neurological exam Caprini VTE Risk Assessment Caprini VTE Risk Assessment: Mod/High Risk (score >= 2) Caprini Risk Assessment Model Point Value = 1 Point Value = 2 Point Value = 3 Point Value = 5 Age 41-60 Minor surgery BMI > 25 kg/m2 Swollen legs Varicose veins or History of unexplained or recurrent spontaneous Oral contraceptives or hormone replacement Sepsis (< 1 month) Serious lung disease, including pneumonia (< 1 month) Abnormal pulmonary function Acute myocardial infarction Congestive heart failure (< 1 month) History of inflammatory bowel disease Medical patient at bed rest Age 61-74 Arthroscopic surgery Major open surgery (> 45 min) Laparoscopic surgery (> 45 min) Malignancy Confined to bed (> 72 hours) Immobilizing plaster cast Central venous access Age >= 75 History of VTE Family history of VTE Factor V Leiden Prothrombin [id number] Lupus anticoagulant Anticardiolipin antibodies Elevated serum homocysteine Heparin-induced thrombocytopenia Other congenital or acquired thrombophilia Stroke (< 1 month) Elective arthroplasty Hip, pelvis, or leg fracture Acute spinal cord injury (< 1 month) Prophylaxis Regimen Total Risk Factor Score Risk Level Prophylaxis Regimen 0-1 Low Early ambulation 2 Moderate Order ONE of the following: *Sequential Compression Device (SCD) *Heparin 5000 units SQ BID 3-4 Higher Order ONE of the following medications: *Heparin 5000 units SQ TID *Enoxaparin/Lovenox 40 mg SQ daily (WT < 150 kg, CrCl > 30 mL/min) *Enoxaparin/Lovenox 30 mg SQ daily (WT < 150 kg, CrCl > 10-29 mL/min) *Enoxaparin/Lovenox 30 mg SQ BID (WT < 150 kg, CrCl > 30 mL/min) AND/OR *Sequential Compression Device (SCD) 5 or more Highest Order ONE of the following medications: *Heparin 5000 units SQ TID (Preferred with Epidurals) *Enoxaparin/Lovenox 40 mg SQ daily (WT < 150 kg, CrCl > 30 mL/min) *Enoxaparin/Lovenox 30 mg SQ daily (WT < 150 kg, CrCl > 10-29 mL/min) *Enoxaparin/Lovenox 30 mg SQ BID (WT < 150 kg, CrCl > 30 mL/min) AND *Sequential Compression Device (SCD) Assessment and Plan Assessment and Plan Subdural hematoma -Very small -No mass-effect -No midline shift -No intervention indicated -Reverse coagulopathy by Lane Casas -Further management per neurosurgery -Seizure prophylaxis COPD -DuoNeb scheduled and as needed -Home dose of prednisone Hypertension -As needed meds to keep his BP less than 140 Diabetes mellitus -Hold Levemir while n.p.o. -Insulin sliding scale End-stage renal disease -Continue Renvela -Hemodialysis per nephrology DVT GI prophylaxis -Gomez's and SCDs -No pharmacological DVT due to SDH -Pepcid Critical Care: The total critical care time was 35 minutes. Time to perform other separately billable procedures was not included in the critical care time. Bryan Barrios MD Dec 25, 2017 21:44
--- NOTE | 2017-12-25 21:48 | RADRPT ---
EXAM DATE: 12/25/2017 9:41 PM EDT AGE/SEX: 67 years / Female INDICATIONS: Known subdural hematoma. No known trauma. CLINICAL DATA: This is the patient's initial encounter. Patient reports that signs and symptoms have been present for 1 day and indicates a pain score of Nonresponsive. MEDICAL/SURGICAL HISTORY: Hypertension. Diabetes mellitus type II. Prior subdural None. RADIATION DOSE: 39.91 CTDI (mGy) ; Patient motion COMPARISON: [facility], CT BRAIN W/O CONTRAST, 11/25/2017. . TECHNIQUE: CT of the head without contrast. Using automated exposure control and adjustment of the mA and/or kV according to patient size, radiation dose was kept as low as reasonably achievable to ob tain optimal diagnostic quality images. FINDINGS: Cerebrum: There is mild generalized atrophy and ventricles are normal given the degree of atrophy. M ild periventricular white matter change is present. There is asymmetric area of low attenuation in t he subcortical white matter. The low-density extra-axial collections documented previously have essen tially resolved but there is a questionable minimal high density material in the extra-axial space in the left frontal region. No midline shift, mass lesion, hemorrhage or acute infarction. Posterior Fossa: The cerebellum and brainstem demonstrate no acute abnormality. The 4th ventricle is midline. The cerebellopontine angle is within normal limits. Extracranial: There is a mucous retention cyst in the left maxillary antrum measuring 2.3 cm. Stable subcutaneous nodule is present on the anterior scalp measuring 10 mm. Skull: The calvaria is intact. No skull fracture. CONCLUSION: 1. The low-density extra-axial collections documented previously have resolved. However, there is qu estionable minimal amount of acute subdural blood products in the left frontal region. 2. Chronic findings include mild atrophy and chronic white matter changes. Electronically signed by: Archie Antony MD 12/25/2017 9:47 PM EDT
[2017-12-25 21:55] LABS: AUTOMATED NEUTROPHIL # 3.1 TH/MM3 (1.8-7.7); EOSINOPHIL # 0.1 TH/MM3 (0-0.4); EOSINOPHIL % 2.1 % (0.0-4.0); HEMOGLOBIN 7.4 GM/DL (11.6-15.3); LYMPH % 17.6 % (9.0-44.0); LYMPHOCYTE # 0.8 TH/MM3 (1.0-4.8); MEAN CELL VOLUME 94.9 FL (80.0-100.0); MEAN CORPUSCULAR HGB CONC 33.7 % (32.0-36.0); MEAN PLATELET VOLUME 7.4 FL (7.0-11.0); MONO % 7.5 % (0.0-8.0); MONOCYTE # 0.3 TH/MM3 (0-0.9); NEUT % 71.8 % (16.0-70.0); PLATELET COUNT 177 TH/MM3 (150-450); RED BLOOD COUNT 2.31 MIL/MM3 (4.00-5.30); RED CELL DISTRIBUTION WIDTH 15.5 % (11.6-17.2); WHITE BLOOD COUNT 4.4 TH/MM3 (4.0-11.0)
[2017-12-25 22:00] VITALS: PULSE 64
[2017-12-25] MEDS ORDERED: ONDANSETRON ODT 4 MG TAB PO PRN (22:00)
[2017-12-25 22:02] LABS: INTERNATIONAL NORMALIZED RATIO 1.3 RATIO; PROTHROMBIN TIME - PATIENT 13.2 SEC (9.8-11.6)
[2017-12-25 22:05] LABS: ALBUMIN 2.5 GM/DL (3.4-5.0); AST (GOT) LESS THAN 3 U/L (15-37); BICARBONATE 30.1 MEQ/L (21.0-32.0); BLOOD UREA NITROGEN 21 MG/DL (7-18); CALCIUM 8.2 MG/DL (8.5-10.1); CHLORIDE 99 MEQ/L (98-107); CREATININE 5.63 MG/DL (0.50-1.00); GLOMERULAR FILTRATION RATE 7 ML/MIN (>89); GLUCOSE,RANDOM 175 MG/DL (74-106); MAGNESIUM 1.8 MG/DL (1.5-2.5); SODIUM (NA) 137 MEQ/L (136-145)
[2017-12-25 22:07] LABS: ALT (GPT) 13 U/L (10-53); PHOSPHORUS 4.5 MG/DL (2.5-4.9)
[2017-12-25 22:08] LABS: ALKALINE PHOSPHATASE 63 U/L (45-117); TOTAL BILIRUBIN ADULT 0.4 MG/DL (0.2-1.0); TOTAL PROTEIN 5.3 GM/DL (6.4-8.2)
[2017-12-26] VITALS (15 sets, daily range): BP systolic 104–137; BP diastolic 51–61; PULSE 60–85; RESP 14–33; TEMP 97.9–99.6; O2SAT 96–100
[2017-12-26] MEDS: CHLORHEXIDINE GLUCONATE 2 % 1 PACK (2 CLOTHS) TOP SCH (03:30)
[2017-12-26 06:15] LABS: AUTOMATED NEUTROPHIL # 2.8 TH/MM3 (1.8-7.7); BASOPHIL # 0.1 TH/MM3 (0-0.2); BASOPHIL % 1.5 % (0.0-2.0); EOSINOPHIL # 0.1 TH/MM3 (0-0.4); EOSINOPHIL % 2.3 % (0.0-4.0); HEMATOCRIT 21.8 % (35.0-46.0); HEMOGLOBIN 7.4 GM/DL (11.6-15.3); LYMPH % 18.5 % (9.0-44.0); LYMPHOCYTE # 0.7 TH/MM3 (1.0-4.8); MEAN CELL VOLUME 95.1 FL (80.0-100.0); MEAN CORPUSCULAR HEMOGLOBIN 32.1 PG (27.0-34.0); MEAN CORPUSCULAR HGB CONC 33.8 % (32.0-36.0); MEAN PLATELET VOLUME 7.4 FL (7.0-11.0); MONO % 7.8 % (0.0-8.0); MONOCYTE # 0.3 TH/MM3 (0-0.9); NEUT % 69.9 % (16.0-70.0); PLATELET COUNT 177 TH/MM3 (150-450); RED CELL DISTRIBUTION WIDTH 15.1 % (11.6-17.2)
[2017-12-26 06:29] LABS: INTERNATIONAL NORMALIZED RATIO 1.2 RATIO; PROTHROMBIN TIME - PATIENT 12.3 SEC (9.8-11.6)
[2017-12-26 06:38] LABS: ALBUMIN 2.4 GM/DL (3.4-5.0); AST (GOT) 7 U/L (15-37); BICARBONATE 28.8 MEQ/L (21.0-32.0); BLOOD UREA NITROGEN 23 MG/DL (7-18); CHLORIDE 100 MEQ/L (98-107); CREATININE 6.22 MG/DL (0.50-1.00); GLOMERULAR FILTRATION RATE 7 ML/MIN (>89); GLUCOSE,RANDOM 164 MG/DL (74-106); MAGNESIUM 1.8 MG/DL (1.5-2.5); SODIUM (NA) 139 MEQ/L (136-145)
[2017-12-26 06:39] LABS: ALT (GPT) 14 U/L (10-53); PHOSPHORUS 4.5 MG/DL (2.5-4.9)
[2017-12-26 06:41] LABS: ALKALINE PHOSPHATASE 66 U/L (45-117); TOTAL BILIRUBIN ADULT 0.4 MG/DL (0.2-1.0)
[2017-12-26] MEDS: INSULIN NovoLIN REGULAR SUPPLEMENTAL SCALE SQ SCH ×4 (08:00→20:15)
[2017-12-26] MEDS: SEVELAMER CARBONATE 800 MG TAB PO SCH ×3 (08:00→17:00)
[2017-12-26] MEDS: DOCUSATE SODIUM 50 MG/SENNA 8.6 MG TAB PO SCH ×2 (08:06→20:14)
[2017-12-26] MEDS: SODIUM CHLORIDE 0.9% FLUSH 10 ML FLUSH IV FLUSH SCH ×2 (08:06→20:15)
[2017-12-26] MEDS: predniSONE 20 MG TAB PO SCH (08:06)
[2017-12-26] MEDS: levETIRAcetam 500 MG TAB PO SCH ×3 (08:06→20:13)
[2017-12-26] MEDS ORDERED: MUPIROCIN 2% OINT 1 APPLIC/GM SYR EACH NARE SCH (09:00)
[2017-12-26] MEDS ORDERED: FAMOTIDINE 20 MG/2 ML VIAL IV PUSH SCH (09:00)
[2017-12-26] MEDS: SODIUM CHLOR 0.9% 1000 ML INJ 1,000 ML IV SCH (09:22)
--- NOTE | 2017-12-26 09:35 | HHI.CCPN ---
Subjective Remarks/Hospital Course 67-year-old female who was just here November 25 for subdural hematoma, presented today to [facility] emergency department for an evaluation of generalized weakness with onset of one day prior to presentation. The patient states she get dialyzed on Thursday. The patient says she was having a shortness of breath and fatigue. She denies any chest pain, fevers or any other pertinent signs and symptoms. The patient was Coumadin at home and her INR at the [facility] was found to be 7.5. The CT of the head obtained at the [facility] shows previously demonstrated chronic right subdural hematoma appears essentially resolved. Residual left subdural collection demonstrates some hyperdense elements suggesting there may be some recurrent hemorrhage since previous exam but the collection measures only 5 mm in greatest thickness with no significant mass-effect or midline shift. Hospice the patient was transferred here for higher level of care and neurosurgical evaluation, shortly after the patient has received [facility]. SUBJECTIVE: 12/26: Currently resting in bed in no acute distress. Hemodynamic stable. Requesting diet. No new focal neurological changes. Objective Vital Signs Date Time Temp Pulse Resp B/P (MAP) Pulse Ox O2 Delivery O2 Flow Rate FiO2 12/26/17 08:00 75 12/26/17 08:00 98.0 14 124/56 (78) 99 12/26/17 07:00 Nasal Cannula 4.00 Intake and Output 12/26/17 12/26/17 12/27/17 08:00 16:00 00:00 Intake Total 944 ml Output Total 0 ml Balance 944 ml Result Diagram: 12/26/17 0400 12/26/17 0400 Imaging Last Impressions Head CT 12/25/17 0000 Signed Impressions: CONCLUSION: 1. The low-density extra-axial collections documented previously have resolved . However, there is questionable minimal amount of acute subdural blood product s in the left frontal region. 2. Chronic findings include mild atrophy and chronic white matter changes. Objective Remarks GENERAL: 67-year-old female currently resting in bed on room air no acute distress SKIN: Warm and dry. Multiple ecchymoses bilateral upper and recurrence. Patient has a PT FE graft in right upper extremity and aneurysmal left upper extremity AV fistula with positive thrill HEAD: Normocephalic. Pupils about 2 mm bilaterally and reactive EYES: No scleral icterus. No injection or drainage. NECK: Supple, trachea midline. No JVD or lymphadenopathy. CARDIOVASCULAR: Regular rate and rhythm without murmurs, gallops, or rubs. Right chest tunneled Hemo-Cath RESPIRATORY: Breath sounds equal bilaterally. No accessory muscle use. GASTROINTESTINAL: Abdomen soft, non-tender, nondistended. MUSCULOSKELETAL: No significant peripheral edema. BACK: Nontender without obvious deformity. NEURO EXAM: Cranial nerves II through XII appear grossly intact. Diminished strength subjectively left upper lower extremity. Intact right upper lower extremity. Normal sensation. Urinary Catheter: No Assessment to: Continue Vascular Central Line Catheter: No Assessment to: Continue A/P Assessment and Plan Neuro Tiny left frontal subdural hematoma Depression disorder NOS CT brain - The low-density extra-axial collections documented previously have essentially resolved but there is a questionable minimal high density material in the extra-axial space in the left frontal region. No midline shift, mass lesion, hemorrhage or acute infarction. Posterior Fossa: The cerebellum and brainstem demonstrate no acute abnormality. The 4th ventricle is midline. The cerebellopontine angle is within normal limits. Extracranial: There is a mucous retention cyst in the left maxillary antrum measuring 2.3 cm. Stable subcutaneous nodule is present on the anterior scalp measuring 10 mm. Skull: The calvaria is intact. No skull fracture. NSrg On levetiracetam 500 mg IV twice daily EEG ordered Currently holding home antidepressants including Wellbutrin, duloxetine and venlafaxine. Resume when clinically indicated Holding Lyrica. Holding record. Resume clinically indicated Acetaminophen 650 mg p.o. every 6 hours as needed fever/pain 1 through 10 : CV: History of CHF with normal echocardiogram 11/26/17 Essential hypertension Hyperlipidemia History of right upper extremity DVT with negative ultrasound 12/11 History of left posterior tibial DVT Home medications include carvedilol and amlodipine and valsartan for hypertension. Resume low-dose see orders Currently holding atorvastatin/fish oil in omega-3. Resume when clinically indicated Echocardiogram 12/11 revealed EF 55%. No regional wall motion analysis. Essentially normal echocardiogram Resp: History of COPD Nasal cannula to maintain saturations greater than equal to 92% Incentive spirometry while awake Albuterol/ipratropium aerosols every 6 hours with albuterol aerosols every 2 hours as needed dyspnea Follow-up chest x-ray GI: Renal diet Pantoprazole for GI prophylaxis Docusate sodium/senna 1 tablet twice daily for bowel regimen : No indication for Yeager catheter Endo: Diabetes mellitus Chronic prednisone use Currently holding insulin detemir Novulin R sliding scale insulin high Accu-Cheks before meals at bedtime to maintain euglycemia Continue prednisone 20 mg p.o. daily/home medication Renal: End-stage renal disease on hemodialysis Thursday/Thursday/Thursday Hemodialysis Thursday/Thursday/Thursday Nephrology consultation Heme: Normocytic anemia History of DVT as above Chronic warfarin use Status post PCC at outside facility. Recheck coags and CBC in a.m. No indication for transfusion of blood products at this time Currently holding warfarin/pharmacological therapeutical or preventative anticoagulation until okay with neurosurgery ID: Monitor for signs and symptomatology of infection FEN: History of hyperphosphatemia Continue Sevelamer carbonate 800 mg 3 times daily Replace electrolytes as clinically indicated MSK: Elevated BMI 46.8 PT evaluate and treat Weight loss encouraged Access -Right upper extremity midline/question PICC. Verify with chest x-ray Prophylaxis -GI -pantoprazole -DVT -SCD/holding pharmacological prophylaxis until okay with neurosurgery Level 2 follow-up Stable from critical care medicine standpoint. Assign care to hospitalist in a.m. 12/27 Colt Espinal MD Dec 26, 2017 09:35
[2017-12-26] MEDS ORDERED: LABETALOL HCL 100 MG/20 ML VIAL IV PUSH PRN (09:45)
[2017-12-26] MEDS ORDERED: RESP: ALBUTEROL 2.5 MG/3 ML NEB (PRN) NEB (09:45)
[2017-12-26] MEDS ORDERED: PILL SPLITTER OTHER PRN (10:15)
[2017-12-26] MEDS ORDERED: amLODIPine BESYLATE 5 MG TAB PO ONE (10:30)
--- NOTE | 2017-12-26 11:19 | RADRPT ---
EXAM DATE: 12/26/2017 11:15 AM EDT AGE/SEX: 67 years / Female INDICATIONS: Shortness of breath. CLINICAL DATA: This is the patient's initial encounter. Patient reports that signs and symptoms have been present for 2 days and indicates a pain score of 0/10. MEDICAL/SURGICAL HISTORY: None. . Port placement. Cardiac stent. COMPARISON: C, CHEST SINGLE AP, 11/25/2017. . FINDINGS: AP portable upright view of the chest demonstrates a stable dialysis catheter with the tip overlying the distal SVC. As compared to the prior exam there has been interval extubation and removal of the n asogastric tube. The heart size is moderately enlarged with diffuse cephalization of pulmonary vascul ature and adjacent parenchymal indistinctness consistent with volume overload versus congestive heart failure and pulmonary edema. CONCLUSION: Radiographic findings consistent with congestive heart failure and pulmonary edema versus volume over load. Electronically signed by: Breann Valencia MD 12/26/2017 11:18 AM EDT
[2017-12-26] MEDS: RESP: ALBUTEROL 2.5 MG/IPRATROPIUM 0.5 MG NEB (SCH) NEB ×2 (12:16→20:44)
[2017-12-26] MEDS ORDERED: SODIUM CHLOR 0.9% 1000 ML INJ 1,000 ML IV PRN (12:50)
[2017-12-26] MEDS ORDERED: SODIUM CHLOR 0.9% 1000 ML INJ 1,000 ML OTHER PRN ×2 (12:50)
[2017-12-26] MEDS ORDERED: MANNITOL 12.5 GM/50 ML VIAL IV PRN (13:00)
[2017-12-26] MEDS ORDERED: diphenhydrAMINE HCL 25 MG CAP PO PRN (13:00)
[2017-12-26] MEDS ORDERED: cloNIDine HCL 0.1 MG TAB PO PRN (13:00)
[2017-12-26] MEDS ORDERED: ALBUMIN 25% INJ 100 ML IV PRN (13:00)
[2017-12-26] MEDS ORDERED: SODIUM CHLORIDE 0.9% FLUSH 10 ML FLUSH IV FLUSH PRN (13:00)
[2017-12-26] MEDS ORDERED: GELATIN 12 MM/7 MM FOAM TOP PRN (13:00)
[2017-12-26] MEDS ORDERED: NITROGLYCERIN 0.4 MG SL 25 TABS/BTL SL PRN (13:00)
[2017-12-26] MEDS ORDERED: ACETAMINOPHEN 325 MG TAB PO PRN (13:00)
--- NOTE | 2017-12-26 13:02 | MB ---
cc: Moi RICO DATE: 12/26/2017 CHIEF COMPLAINT: Transfer. HISTORY OF PRESENT ILLNESS: This is a 67-year-old female patient with a history of previous subdural hematoma. She presented to [facility] for evaluation of generalized weakness. The patient underwent evaluation, was found to have an elevated INR and CT scan of the head was obtained, which was abnormal and because of that, she was transferred to [facility] for further evaluation and care. The patient reports that she has no recollection of why she is at the hospital. She denies any history of falls and reports that she has not eaten for approximately 4 weeks. PAST MEDICAL HISTORY: Remarkable for COPD, CHF, end-stage renal disease, upper extremity DVT, morbid obesity, type 2 diabetes, atrial fibrillation, dyslipidemia, and hypertension. ALLERGIES: INCLUDE SULFA, GABAPENTIN, METOCLOPRAMIDE, and MORPHINE. PAST SURGICAL HISTORY: Includes an appendectomy, cholecystectomy, tonsillectomy, hysterectomy, and dialysis access. MEDICATIONS: Include: 1. Lipitor. 2. Vitamin D3. 3. Fish oil. 4. Requip. 5. Renvela. 6. Valsartan. 7. Bancroft. 8. Carvedilol. 9. Lasix. 10. Wellbutrin. 11. Lantus insulin. 12. Fosrenol. 13. Norvasc. 14. Lovaza. 15. Duloxetine. 16. Venlafaxine. 17. Lyrica. FAMILY HISTORY: Unremarkable. SOCIAL HISTORY: Unremarkable. REVIEW OF SYSTEMS: As pertains to the above-mentioned items. PHYSICAL EXAMINATION: VITAL SIGNS: Temperature of 98, pulse of 75, respiratory rate of 14, blood pressure 124/56, and a pulse oximetry of 96. HEENT: Unremarkable. NECK: Supple, good carotid pulses bilaterally. CHEST: Symmetric. LUNGS: Clear. HEART: Shows a regular rhythm with normal heart sounds. ABDOMEN: Soft and nontender. EXTREMITIES: Show chronic changes, especially in the lower extremities with evidence of a fistula in the left arm and swelling of the lower extremities. NEUROLOGIC: The patient is alert and awake. She follows commands. She is oriented to herself and to time. Her affect appears normal. Her speech is fluent. Cranial nerves 2-12 appear intact. Motor exam is 5+/5. She is right-handed. Sensory system is intact to touch. Deep tendon reflexes are trace at all sites. IMAGING STUDIES: Review of a CT scan of the brain shows small areas of acute to subacute blood in the subdural spaces in both hemispheres, small. There is no mass effect and there is no shift of the ventricles. OVERALL IMPRESSION: Subacute subdural hematoma, small. No neurosurgical intervention is needed at the present time and patient should have a repeat CT within 24-48 hours for reevaluation, at which time, if these are stable, the patient may be transferred and discharged. Consideration for change in her anticoagulation should be made Moi AGUILERA/MIRIAM , 10:50 AM , 01:01 PM MTDMarley
--- NOTE | 2017-12-26 13:12 | PD.CONS ---
HPI Service Nephrology Consult Requested By Dr. Barrios Reason for Consult ESRD on HD Dialysis Management Primary Care Physician No Primary Care Physician History of Present Illness The patient is a 67 yo [place] female who was transported from [facility] in [place] for evaluation of suspected progressing SDH. She was treated at this facility for the same in early November, but was concerned for new issues as she was having progressive weakness and some confusion prompting ED visit to [place]. CT scan there showed residual left subdural collection demonstrating some hyperdense elements suggesting there may be some recurrent hemorrhage since previous exam but the collection measures only 5 mm in greatest thickness with no significant mass-effect or midline shift. She is seen in ICU setting A&O in NAD We have been consulted for HD management. She is an ESRD patient who dialyzes at [facility] under the care of Dr. Nunez. States last HD was 12/23 (missed 12/25). Typical HD 5h with UF around 3L She has a RIJ PermCath. 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 Been using RIJ PermCath for about 6 months per patient. Review of Systems Constitutional: COMPLAINS OF: Fatigue Neurologic: COMPLAINS OF: Localized weakness Past Family Social History Allergies: Coded Allergies: Sulfa (Sulfonamide Antibiotics) (Verified Allergy, Unknown, 11/25/17) gabapentin (Verified Allergy, Unknown, 11/25/17) metoclopramide (Verified Allergy, Unknown, 11/25/17) morphine (Verified Allergy, Unknown, 11/25/17) Past Medical History COPD CHF End-stage renal disease on hemodialysis Upper extremity DVT Morbid obesity Type 2 diabetes Atrial fibrillation per transfer history Dyslipidemia Hypertension SDH Past Surgical History Appendectomy Cholecystectomy Tonsillectomy Hysterectomy Dialysis access placement Reported Medications Novolog Inj (Insulin Aspart) 100 Unit/Ml Inj 1 Units SQ ACHS Lovenox Inj (Enoxaparin Sodium) 120 Mg/0.8 Ml Syr 110 Mg SQ Q24H Levemir Inj (Insulin Detemir) 1,000 unit/ 10 ML Vial 15 Units SQ DAILY Prednisone 20 Mg Tab 20 Mg PO DAILY Bactroban Nasal Oint (Mupirocin Nasal Oint) 2% Oint 1 Applic EACH NARE BID Renvela (Sevelamer Carbonate) 800 Mg Tab 800 Mg PO TIDAC Keppra (Levetiracetam) 500 Mg Tab 500 Mg PO Q12HR Coumadin (Warfarin) 5 Mg Tab 5 Mg PO DAILY@1600 Active Ordered Medications Current Medications Medications (Trade) Dose Ordered Sig/Joseph Route Start Time Stop Time Status Last Admin (Keppra) 500 mg Q12HR PO 12/26/17 09:00 12/26/17 09:00 (Deltasone) 20 mg DAILY PO 12/26/17 09:00 (Renvela) 800 mg TIDAC PO 12/26/17 08:00 12/26/17 12:00 (D50w (Vial) Inj) 50 ml UNSCH PRN IV PUSH 12/25/17 21:30 (Glucagon Inj) 1 mg UNSCH PRN OTHER 12/25/17 21:30 (NovoLIN R SUPPLEMENTAL SCALE) 1 ACHS SLIDING SCALE SQ 12/26/17 08:00 (NS Flush) 2 ml UNSCH PRN IV FLUSH 12/25/17 21:30 (NS Flush) 2 ml BID IV FLUSH 12/26/17 09:00 (Tylenol) 650 mg Q6H PRN PO 12/25/17 21:30 (Zofran Odt) 4 mg Q6H PRN PO 12/25/17 22:00 (Restoril) 15 mg HS PRN PO 12/25/17 21:30 ([facility] Nursing Information) 1 Q361D XX 12/25/17 21:30 12/25/17 21:30 (Chlorhexidine 2% Cloth) 3 pack Taper DAILY@04 TOP 12/26/17 04:00 12/22/18 03:59 12/26/17 03:30 (Chlorhexidine 2% Cloth) 3 pack UNSCH PRN TOP 12/25/17 21:30 (Teresa-Colace) 1 tab BID PO 12/26/17 09:00 (Milk Of Magnesia Liq) 30 ml Q12H PRN PO 12/25/17 21:30 (Senokot) 17.2 mg Q12H PRN PO 12/25/17 21:30 (Dulcolax Supp) 10 mg DAILY PRN RECTAL 12/25/17 21:30 (Lactulose Liq) 30 ml DAILY PRN PO 12/25/17 21:30 (Bactroban Nasal 2% Oint) 1 applic Taper BID EACH NARE 12/26/17 21:00 12/22/18 20:59 (Protonix) 20 mg DAILY PO 12/27/17 09:00 (Albuterol Neb) 2.5 mg Q2HR NEB PRN NEB 12/26/17 09:45 (Coreg) 3.125 mg Q12HR PO 12/26/17 21:00 (Norvasc) 2.5 mg DAILY PO 12/27/17 09:00 (Trandate Inj) 10 mg Q1HR PRN IV PUSH 12/26/17 09:45 (Duoneb Neb) 1 ampule Q6HR WHILE AWAKE NEB NEB 12/26/17 14:00 12/26/17 12:16 (Pill Splitter) 1 ea UNSCH PRN OTHER 12/26/17 10:15 Family History NC Social History Lives in [place] Denies tobacco, EtOH, illicits Physical Exam Vital Signs Vital Signs Date Time Temp Pulse Resp B/P (MAP) Pulse Ox O2 Delivery O2 Flow Rate FiO2 12/26/17 12:21 98 Nasal Cannula 2.00 12/26/17 10:00 80 12/26/17 08:00 75 12/26/17 08:00 98.0 72 14 124/56 (78) 99 12/26/17 07:00 98 Nasal Cannula 4.00 12/26/17 06:00 67 12/26/17 04:00 65 12/26/17 04:00 97.9 63 23 104/51 (68) 99 12/26/17 02:00 64 12/26/17 00:00 64 12/26/17 00:00 97.9 60 18 119/57 (77) 100 12/25/17 22:00 64 12/25/17 20:02 98 Nasal Cannula 4.00 12/25/17 20:00 98 Nasal Cannula 4.00 12/25/17 20:00 64 12/25/17 18:48 99 Nasal Cannula 4.00 12/25/17 18:48 76 Physical Exam GENERAL: Laying in bed in NAD. A&O. Morbidly obese SKIN: Warm and dry. HEAD: Atraumatic. Normocephalic. EYES: Pupils equal and round. No scleral icterus. No injection or drainage. ENT: No nasal bleeding or discharge. Mucous membranes pink and moist. NECK: Trachea midline. No JVD. RIJ PermCath in place CARDIOVASCULAR: Regular rate and rhythm. LUE AVF present with thrill, but no bruit RESPIRATORY: No accessory muscle use. Clear to auscultation. Breath sounds equal bilaterally. GASTROINTESTINAL: Abdomen soft, non-tender, nondistended. Hepatic and splenic margins not palpable. MUSCULOSKELETAL: Extremities without clubbing, cyanosis, Bilat LE lymphedema with no significant pitting edema appreciated PSYCHIATRIC: Appropriate mood and affect; insight and judgment normal. Laboratory Laboratory Tests Test 12/25/17 21:00 12/25/17 21:30 12/26/17 04:00 Nasal Screen MRSA (PCR) MRSA DETECTED White Blood Count 4.4 4.0 Red Blood Count 2.31 2.30 Hemoglobin 7.4 7.4 Hematocrit 22.0 21.8 Mean Corpuscular Volume 94.9 95.1 Mean Corpuscular Hemoglobin 32.0 32.1 Mean Corpuscular Hemoglobin Concent 33.7 33.8 Red Cell Distribution Width 15.5 15.1 Platelet Count 177 177 Mean Platelet Volume 7.4 7.4 Neutrophils (%) (Auto) 71.8 69.9 Lymphocytes (%) (Auto) 17.6 18.5 Monocytes (%) (Auto) 7.5 7.8 Eosinophils (%) (Auto) 2.1 2.3 Basophils (%) (Auto) 1.0 1.5 Neutrophils # (Auto) 3.1 2.8 Lymphocytes # (Auto) 0.8 0.7 Monocytes # (Auto) 0.3 0.3 Eosinophils # (Auto) 0.1 0.1 Basophils # (Auto) 0.0 0.1 CBC Comment DIFF FINAL DIFF FINAL Differential Comment Prothrombin Time 13.2 12.3 Prothromb Time International Ratio 1.3 1.2 Blood Urea Nitrogen 21 23 Creatinine 5.63 6.22 Random Glucose 175 164 Total Protein 5.3 5.0 Albumin 2.5 2.4 Calcium Level 8.2 8.0 Phosphorus Level 4.5 4.5 Magnesium Level 1.8 1.8 Alkaline Phosphatase 63 66 Aspartate Amino Transf (AST/SGOT) LESS THAN 3 7 Alanine Aminotransferase (ALT/SGPT) 13 14 Total Bilirubin 0.4 0.4 Sodium Level 137 139 Potassium Level 3.8 4.0 Chloride Level 99 100 Carbon Dioxide Level 30.1 28.8 Anion Gap 8 10 Estimat Glomerular Filtration Rate 7 7 Activated Partial Thromboplast Time 28.9 Result Diagram: 12/26/17 0400 12/26/17 0400 Imaging Last Impressions Chest X-Ray 12/26/17 0000 Signed Impressions: CONCLUSION: Radiographic findings consistent with congestive heart failure and pulmonary ed jeremy versus volume overload. Head CT 12/25/17 0000 Signed Impressions: CONCLUSION: 1. The low-density extra-axial collections documented previously have resolved . However, there is questionable minimal amount of acute subdural blood product s in the left frontal region. 2. Chronic findings include mild atrophy and chronic white matter changes. Assessment and Plan Problem List: (1) ESRD (end stage renal disease) ICD Codes: N18.6 - End stage renal disease Plan: Plan on HD today then resume MWF schedule thereafter. 3.5h each HD with UF 3L as tolerated Will order Epogen with HD Check iPTH and Phos levels. No heparin with HD given recent SDH. Medications should be adjusted for the patient's ESRD. Avoid gadolinium. (2) Sudural hygroma with probable acute hemorrhage Leanna Contreras Dec 26, 2017 13:12
[2017-12-26] MEDS ORDERED: ONDANSETRON ODT 4 MG TAB PO PRN (13:45)
[2017-12-26 14:19] LABS: % SATURATION IRON PROFILE 16.8 % (20-50); IRON (FE) 28 MCG/DL (50-170); TOTAL IRON BINDING CAPACITY 167 MCG/DL (250-450)
[2017-12-26 14:21] LABS: FERRITIN 424 NG/ML (8-252)
[2017-12-26] MEDS: GENTAMICIN SULFATE 20 MG/2 ML VIAL OTHER PRN (17:15)
[2017-12-26] MEDS: EPOETIN ALFA 10,000 UNITS/ML VIAL IV PUSH PRN (17:15)
[2017-12-26] MEDS: CARVEDILOL 3.125 MG TAB PO SCH (20:14)
[2017-12-26] MEDS: ACETAMINOPHEN 325 MG TAB PO PRN (20:14)
[2017-12-26] MEDS: MUPIROCIN 2% OINT 1 APPLIC/GM SYR EACH NARE SCH (20:15)
[2017-12-27] VITALS (14 sets, daily range): BP systolic 100–128; BP diastolic 48–68; PULSE 70–81; RESP 16–28; TEMP 97.6–99.6; O2SAT 94–99
[2017-12-27] MEDS: CHLORHEXIDINE GLUCONATE 2 % 1 PACK (2 CLOTHS) TOP SCH (04:00)
[2017-12-27 05:11] LABS: AUTOMATED NEUTROPHIL # 2.5 TH/MM3 (1.8-7.7); BASOPHIL # 0.1 TH/MM3 (0-0.2); BASOPHIL % 1.4 % (0.0-2.0); EOSINOPHIL # 0.1 TH/MM3 (0-0.4); HEMATOCRIT 22.9 % (35.0-46.0); HEMOGLOBIN 7.7 GM/DL (11.6-15.3); LYMPH % 20.8 % (9.0-44.0); LYMPHOCYTE # 0.8 TH/MM3 (1.0-4.8); MEAN CORPUSCULAR HEMOGLOBIN 32.1 PG (27.0-34.0); MEAN CORPUSCULAR HGB CONC 33.7 % (32.0-36.0); MEAN PLATELET VOLUME 7.5 FL (7.0-11.0); MONOCYTE # 0.3 TH/MM3 (0-0.9); NEUT % 67.8 % (16.0-70.0); PLATELET COUNT 173 TH/MM3 (150-450); RED BLOOD COUNT 2.41 MIL/MM3 (4.00-5.30); RED CELL DISTRIBUTION WIDTH 15.3 % (11.6-17.2); WHITE BLOOD COUNT 3.7 TH/MM3 (4.0-11.0)
[2017-12-27 05:21] LABS: INTERNATIONAL NORMALIZED RATIO 1.2 RATIO; PROTHROMBIN TIME - PATIENT 12.3 SEC (9.8-11.6)
[2017-12-27 05:47] LABS: ALKALINE PHOSPHATASE 63 U/L (45-117); ALT (GPT) 9 U/L (10-53); AST (GOT) 3 U/L (15-37); BICARBONATE 29.4 MEQ/L (21.0-32.0); BLOOD UREA NITROGEN 16 MG/DL (7-18); CALCIUM 7.7 MG/DL (8.5-10.1); CHLORIDE 100 MEQ/L (98-107); CREATININE 4.83 MG/DL (0.50-1.00); GLOMERULAR FILTRATION RATE 9 ML/MIN (>89); GLUCOSE,RANDOM 171 MG/DL (74-106); MAGNESIUM 1.9 MG/DL (1.5-2.5); PHOSPHORUS 3.4 MG/DL (2.5-4.9); SODIUM (NA) 141 MEQ/L (136-145); TOTAL BILIRUBIN ADULT 0.4 MG/DL (0.2-1.0); TOTAL PROTEIN 4.9 GM/DL (6.4-8.2)
[2017-12-27] MEDS: MUPIROCIN 2% OINT 1 APPLIC/GM SYR EACH NARE SCH ×2 (07:47→20:24)
[2017-12-27] MEDS: INSULIN NovoLIN REGULAR SUPPLEMENTAL SCALE SQ SCH ×4 (07:47→20:27)
[2017-12-27] MEDS: levETIRAcetam 500 MG TAB PO SCH ×2 (07:47→20:22)
[2017-12-27] MEDS: SEVELAMER CARBONATE 800 MG TAB PO SCH ×3 (07:47→16:07)
[2017-12-27] MEDS: PANTOPRAZOLE SOD 20 MG DELAYED RELEASE TAB PO SCH (07:48)
[2017-12-27] MEDS: SODIUM CHLORIDE 0.9% FLUSH 10 ML FLUSH IV FLUSH SCH ×2 (07:48→20:29)
[2017-12-27] MEDS: DOCUSATE SODIUM 50 MG/SENNA 8.6 MG TAB PO SCH ×2 (07:48→20:22)
[2017-12-27] MEDS: CARVEDILOL 3.125 MG TAB PO SCH ×2 (07:48→20:22)
[2017-12-27] MEDS: predniSONE 20 MG TAB PO SCH (07:48)
[2017-12-27] MEDS: amLODIPine BESYLATE 5 MG TAB PO SCH (07:48)
--- NOTE | 2017-12-27 08:35 | RADRPT ---
EXAM DATE: 12/27/2017 8:22 AM EDT AGE/SEX: 67 years / Female INDICATIONS: Abnormal prior CT brain. CLINICAL DATA: This is the patient's subsequent encounter. Patient reports that signs and symptoms h ave been present for 1 day and indicates a pain score of 3/10. MEDICAL/SURGICAL HISTORY: Cardiovascular disease. Appendectomy. Cholecystectomy. RADIATION DOSE: 56.35 CTDI (mGy) COMPARISON: [facility], CT BRAIN W/O CONTRAST, 12/25/2017. [facility], CT BRAIN W/O CONTRAST, 11/25/2017. . TECHNIQUE: CT of the head without contrast. Using automated exposure control and adjustment of the mA and/or kV according to patient size, radiation dose was kept as low as reasonably achievable to ob tain optimal diagnostic quality images. FINDINGS: Cerebrum: The ventricles are normal for age. No evidence of midline shift, mass lesion, hemorrhage or acute infarction. No extraaxial fluid collections are seen. Stable white matter atrophic changes. Posterior Fossa: The cerebellum and brainstem are intact. The 4th ventricle is midline. The cerebe llopontine angle is unremarkable. Extracranial: The visualized portion of the orbits is intact. Skull: The calvaria is intact. No evidence of skull fracture. CONCLUSION: 1. No extra-axial fluid collections are identified on the current exam. Stable atrophic white matter changes. Electronically signed by: Breann Valencia MD 12/27/2017 8:33 AM EDT
[2017-12-27] MEDS: RESP: ALBUTEROL 2.5 MG/IPRATROPIUM 0.5 MG NEB (SCH) NEB ×3 (08:55→21:04)
--- NOTE | 2017-12-27 13:09 | HHI.CCPN ---
Subjective Remarks/Hospital Course 67-year-old female who was just here November 25 for subdural hematoma, presented today to [facility] emergency department for an evaluation of generalized weakness with onset of one day prior to presentation. The patient states she get dialyzed on Thursday. The patient says she was having a shortness of breath and fatigue. She denies any chest pain, fevers or any other pertinent signs and symptoms. The patient was Coumadin at home and her INR at the [facility] was found to be 7.5. The CT of the head obtained at the [facility] shows previously demonstrated chronic right subdural hematoma appears essentially resolved. Residual left subdural collection demonstrates some hyperdense elements suggesting there may be some recurrent hemorrhage since previous exam but the collection measures only 5 mm in greatest thickness with no significant mass-effect or midline shift. Hospice the patient was transferred here for higher level of care and neurosurgical evaluation, shortly after the patient has received [facility]. 12/26: Currently resting in bed in no acute distress. Hemodynamic stable. Requesting diet. No new focal neurological changes. SUBJECTIVE: 12/27: No new issues overnight. Brain CT with no acute changes. Hemodynamically stable. Tolerated hemodialysis yesterday. Objective Vital Signs Date Time Temp Pulse Resp B/P (MAP) Pulse Ox O2 Delivery O2 Flow Rate FiO2 12/27/17 12:00 98.8 75 24 128/59 (82) 97 12/27/17 08:57 Nasal Cannula 2.00 12/27/17 08:00 98 Intake and Output 12/27/17 12/27/17 12/27/17 07:59 15:59 23:59 Intake Total 240 ml Balance 240 ml Result Diagram: 12/27/17 0450 12/27/17 0450 Imaging Last Impressions Head CT 12/27/17 0000 Signed Impressions: CONCLUSION: 1. No extra-axial fluid collections are identified on the current exam. Stable atrophic white matter changes. Chest X-Ray 12/26/17 0000 Signed Impressions: CONCLUSION: Radiographic findings consistent with congestive heart failure and pulmonary ed jeremy versus volume overload. Objective Remarks GENERAL: 67-year-old female currently resting in bed on room air no acute distress SKIN: Warm and dry. Multiple ecchymoses bilateral upper and recurrence. Patient has a PT FE graft in right upper extremity and aneurysmal left upper extremity AV fistula with positive thrill HEAD: Normocephalic. Pupils about 2 mm bilaterally and reactive EYES: No scleral icterus. No injection or drainage. NECK: Supple, trachea midline. No JVD or lymphadenopathy. CARDIOVASCULAR: Regular rate and rhythm without murmurs, gallops, or rubs. Right chest tunneled Hemo-Cath RESPIRATORY: Breath sounds equal bilaterally. No accessory muscle use. GASTROINTESTINAL: Abdomen soft, non-tender, nondistended. MUSCULOSKELETAL: No significant peripheral edema. BACK: Nontender without obvious deformity. NEURO EXAM: Cranial nerves II through XII appear grossly intact. Diminished strength subjectively left upper lower extremity. Intact right upper lower extremity. Normal sensation. Urinary Catheter: No Assessment to: Continue Vascular Central Line Catheter: Yes Assessment to: Continue Date of Insertion: Dec 25, 2017 Line: PICC Side: Right Location: Antecubital A/P Assessment and Plan Neuro Tiny left frontal subdural hematoma Depression disorder NOS CT brain - The low-density extra-axial collections documented previously have essentially resolved but there is a questionable minimal high density material in the extra-axial space in the left frontal region. No midline shift, mass lesion, hemorrhage or acute infarction. Posterior Fossa: The cerebellum and brainstem demonstrate no acute abnormality. The 4th ventricle is midline. The cerebellopontine angle is within normal limits. Extracranial: There is a mucous retention cyst in the left maxillary antrum measuring 2.3 cm. Stable subcutaneous nodule is present on the anterior scalp measuring 10 mm. Skull: The calvaria is intact. No skull fracture. NSrg On levetiracetam 500 mg IV twice daily EEG ordered Currently holding home antidepressants including Wellbutrin, duloxetine and venlafaxine. Resume when clinically indicated Holding Lyrica. Holding Requip. Resume clinically indicated Acetaminophen 650 mg p.o. every 6 hours as needed fever/pain 1 through [address] 63 /revealed resolution of tiny hematoma : CV: History of CHF with normal echocardiogram 11/26/17 Essential hypertension Hyperlipidemia History of right upper extremity DVT with negative ultrasound 12/11 History of left posterior tibial DVT Home medications include carvedilol and amlodipine and valsartan for hypertension. Resume low-dose see orders Currently holding atorvastatin/fish oil in omega-3. Resume when clinically indicated Echocardiogram 12/11 revealed EF 55%. No regional wall motion analysis. Essentially normal echocardiogram Resp: History of COPD Nasal cannula to maintain saturations greater than equal to 92% Incentive spirometry while awake Albuterol/ipratropium aerosols every 6 hours with albuterol aerosols every 2 hours as needed dyspnea Follow-up chest x-ray GI: Renal diet/ADA Pantoprazole for GI prophylaxis Docusate sodium/senna 1 tablet twice daily for bowel regimen : No indication for Yeager catheter Endo: Diabetes mellitus Chronic prednisone use Currently holding insulin detemir. On 15 units at night at home. Will start at 5 units twice daily here 12/27 Novulin R sliding scale insulin high Accu-Cheks before meals at bedtime to maintain euglycemia Continue prednisone 20 mg p.o. daily/home medication Renal: End-stage renal disease on hemodialysis Thursday/Thursday/Thursday Hemodialysis Thursday/Thursday/Thursday Nephrology consultation. -3500 cc yesterday Heme: Leukopenia Normocytic anemia History of DVT as above Chronic warfarin use Status post PCC at outside facility. Recheck coags and CBC in a.m. No indication for transfusion of blood products at this time Currently holding warfarin/pharmacological therapeutical or preventative anticoagulation until okay with neurosurgery ID: Monitor for signs and symptomatology of infection FEN: History of hyperphosphatemia Continue Sevelamer carbonate 800 mg 3 times daily Replace electrolytes as clinically indicated MSK: Elevated BMI 45.7 PT evaluate and treat Weight loss encouraged Access -Right upper extremity midline/question PICC. Verify with chest x-ray Prophylaxis -GI -pantoprazole -DVT -SCD/holding pharmacological prophylaxis until okay with neurosurgery Level 2 follow-up Stable from critical care medicine standpoint. Assign care to hospitalist in a.m. 12/28. Okay to transfer from ICU Colt Espinal MD Dec 27, 2017 13:09
[2017-12-27] MEDS: ACETAMINOPHEN/HYDROcodone 325 MG/7.5 MG TAB PO PRN ×3 (15:34→20:22)
--- NOTE | 2017-12-27 16:07 | HHI.NSPN ---
History Interval History Patient reports she is doing well at the present time. Offers no complaints Exam Results Vital Signs Date Time Temp Pulse Resp B/P (MAP) Pulse Ox O2 Delivery O2 Flow Rate FiO2 12/27/17 14:00 78 12/27/17 12:00 98.8 24 128/59 (82) 97 12/27/17 08:57 Nasal Cannula 2.00 12/27/17 08:00 98 Intake and Output 12/27/17 12/27/17 12/28/17 08:00 16:00 00:00 Intake Total 240 ml Balance 240 ml Physical Examination Is alert and awake is in bed. Conversant and follows commands Moves all extremities well Lab, Micro, Other Results CT scan of the brain reviewed. Previous small subdural appears stable and resolving Medical Decision Making Impression and Plan Patient is stable and doing well Can be transferred to regular floor. Should not be on Coumadin at the present time Moi Ardon MD Dec 27, 2017 16:07
[2017-12-27] MEDS: TEMAZEPAM 15 MG CAP PO PRN (20:21)
[2017-12-27] MEDS: INSULIN DETEMIR 100 UNITS/ML VIAL SQ SCH (20:27)
[2017-12-28] VITALS (14 sets, daily range): BP systolic 112–171; BP diastolic 46–74; PULSE 63–76; RESP 11–25; TEMP 97.9–98.5; O2SAT 95–100
[2017-12-28] MEDS: CHLORHEXIDINE GLUCONATE 2 % 1 PACK (2 CLOTHS) TOP SCH ×2 (00:06→20:29)
[2017-12-28] MEDS: ACETAMINOPHEN/HYDROcodone 325 MG/7.5 MG TAB PO PRN ×2 (00:06→17:37)
[2017-12-28 04:44] LABS: HEMATOCRIT 21.8 % (35.0-46.0); HEMOGLOBIN 7.4 GM/DL (11.6-15.3); MEAN CELL VOLUME 94.6 FL (80.0-100.0); MEAN CORPUSCULAR HGB CONC 33.9 % (32.0-36.0); MEAN PLATELET VOLUME 7.5 FL (7.0-11.0); PLATELET COUNT 179 TH/MM3 (150-450); RED BLOOD COUNT 2.31 MIL/MM3 (4.00-5.30); RED CELL DISTRIBUTION WIDTH 15.7 % (11.6-17.2); WHITE BLOOD COUNT 4.5 TH/MM3 (4.0-11.0)
[2017-12-28 05:03] LABS: INTERNATIONAL NORMALIZED RATIO 1.2 RATIO; PROTHROMBIN TIME - PATIENT 11.9 SEC (9.8-11.6)
[2017-12-28 05:19] LABS: ALBUMIN 2.1 GM/DL (3.4-5.0); BICARBONATE 28.6 MEQ/L (21.0-32.0); CALCIUM 8.2 MG/DL (8.5-10.1); CREATININE 6.28 MG/DL (0.50-1.00)
[2017-12-28] MEDS: RESP: ALBUTEROL 2.5 MG/IPRATROPIUM 0.5 MG NEB (SCH) NEB ×3 (08:14→20:38)
[2017-12-28] MEDS: CARVEDILOL 3.125 MG TAB PO SCH ×3 (08:40→20:11)
[2017-12-28] MEDS: amLODIPine BESYLATE 5 MG TAB PO SCH ×2 (08:40→09:00)
[2017-12-28] MEDS: SEVELAMER CARBONATE 800 MG TAB PO SCH ×3 (08:40→17:51)
[2017-12-28] MEDS: levETIRAcetam 500 MG TAB PO SCH ×2 (08:40→20:11)
[2017-12-28] MEDS: INSULIN NovoLIN REGULAR SUPPLEMENTAL SCALE SQ SCH ×4 (08:41→20:34)
[2017-12-28] MEDS: PANTOPRAZOLE SOD 20 MG DELAYED RELEASE TAB PO SCH (08:41)
[2017-12-28] MEDS: DOCUSATE SODIUM 50 MG/SENNA 8.6 MG TAB PO SCH ×2 (08:41→20:11)
[2017-12-28] MEDS: SODIUM CHLORIDE 0.9% FLUSH 10 ML FLUSH IV FLUSH SCH ×2 (08:41→20:13)
[2017-12-28] MEDS: MUPIROCIN 2% OINT 1 APPLIC/GM SYR EACH NARE SCH ×2 (08:41→20:11)
[2017-12-28] MEDS: predniSONE 20 MG TAB PO SCH (08:41)
[2017-12-28] MEDS: INSULIN DETEMIR 100 UNITS/ML VIAL SQ SCH ×2 (08:42→20:34)
[2017-12-28] MEDS ORDERED: buPROPion HCL 150 MG SUSTAINED RELEASE TAB PO SCH (09:00)
[2017-12-28] MEDS: GENTAMICIN SULFATE 20 MG/2 ML VIAL OTHER PRN (09:42)
[2017-12-28] MEDS: EPOETIN ALFA 10,000 UNITS/ML VIAL IV PUSH PRN (09:42)
--- NOTE | 2017-12-28 11:02 | HHI.PR ---
Subjective Remarks in no acute distress. no headache or nausea. having her HD today. Objective Vitals Vital Signs Date Time Temp Pulse Resp B/P (MAP) Pulse Ox O2 Delivery O2 Flow Rate FiO2 12/28/17 10:00 71 12/28/17 08:16 99 Nasal Cannula 3.00 12/28/17 08:00 98.2 70 19 146/67 (93) 100 12/28/17 08:00 70 12/28/17 07:00 93 Nasal Cannula 3.00 12/28/17 06:00 63 12/28/17 04:00 98.5 65 25 127/57 (80) 100 12/28/17 04:00 65 12/28/17 02:00 65 12/28/17 00:00 98.1 68 24 112/46 (68) 97 12/28/17 00:00 68 12/27/17 22:00 72 12/27/17 21:06 97 Nasal Cannula 2.00 12/27/17 20:00 74 12/27/17 20:00 99.5 74 28 112/68 (83) 97 12/27/17 20:00 97 Nasal Cannula 3.00 12/27/17 18:00 80 12/27/17 16:30 18 12/27/17 16:00 99.6 81 17 112/52 (72) 94 12/27/17 16:00 81 12/27/17 14:00 78 12/27/17 12:00 98.8 75 24 128/59 (82) 97 12/27/17 12:00 75 I/O 12/27/17 12/27/17 12/27/17 12/28/17 12/28/17 12/28/17 07:00 15:00 23:00 07:00 15:00 23:00 Intake Total 240 ml 720 ml 240 ml Output Total 0 ml 0 ml Balance 240 ml 720 ml 240 ml Intake Oral 240 ml 720 ml 240 ml Output Urine Total 0 ml 0 ml # Bowel Movements 0 Result Diagram: 12/28/17 0430 12/28/17 0430 Imaging Last Impressions Head CT 12/27/17 0000 Signed Impressions: CONCLUSION: 1. No extra-axial fluid collections are identified on the current exam. Stable atrophic white matter changes. Chest X-Ray 12/26/17 0000 Signed Impressions: CONCLUSION: Radiographic findings consistent with congestive heart failure and pulmonary ed jeremy versus volume overload. Objective Remarks GENERAL: This is a well-nourished, well-developed patient, in no apparent distress. CARDIOVASCULAR: Regular rate and regular rhythm without murmurs, gallops, or rubs. RESPIRATORY: Clear to auscultation. Breath sounds equal bilaterally. No wheezes , rales, or rhonchi. GASTROINTESTINAL: Abdomen soft, non-tender, nondistended. Normal, active bowel sounds MUSCULOSKELETAL: Extremities without clubbing, cyanosis, or edema. NEURO: Alert & Oriented x4 to person, place, time, situation. Moves all ext x4 Medications and IVs Inpatient Medications Acetaminophen (Tylenol) 650 mg UNSCH PRN PO for headach, pain, temp > 101F; Start 12/26/17 at 13:00 Acetaminophen/ Hydrocodone Bitart ([place] 7.5-325 Mg) 1 tab Q4H PRN PO pain 7- 10 Last administered on 12/28/17at 00:06; Start 12/26/17 at 22:45 Albumin Human 100 ml @ 60 mls/hr UNSCH PRN IV WITH DIALYSIS; Start 12/26/17 at 13:00 Albuterol Sulfate (Albuterol Neb) 2.5 mg Q2HR NEB PRN NEB dyspnea; Start at 09:45 Albuterol/ Ipratropium (Duoneb Neb) 1 ampule Q6HR WHILE AWAKE NEB NEB Last administered on 12/28/17at 08:14; Start 12/26/17 at 14:00 Amlodipine Besylate (Norvasc) 2.5 mg DAILY PO Last administered on 12/27/17at 07: 48; Start 12/27/17 at 09:00 Bisacodyl (Dulcolax Supp) 10 mg DAILY PRN RECTAL SEVERE CONSITIPATION; Start at 21:30 Bupropion HCl (Wellbutrin Sr) 150 mg DAILY PO ; Start 12/28/17 at 09:00; Stop 12/28/17 at 09:00; Status DC Carvedilol (Coreg) 3.125 mg Q12HR PO Last administered on 12/27/17at 20:22; Start 12/26/17 at 21:00 Chlorhexidine Gluconate (Chlorhexidine 2% Cloth) 3 pack UNSCH PRN TOP HYGIENIC CARE; Start 12/25/17 at 21:30 Clonidine (Catapres) 0.1 mg UNSCH PRN PO for BP > 180/100 X 2 readings; Start 12/26/17 at 13:00 Dextrose (D50w (Vial) Inj) 50 ml UNSCH PRN IV PUSH HYPOGLYCEMIA-SEE COMMENTS; Start 12/25/17 at 21:30 Diphenhydramine HCl (Benadryl) 25 mg UNSCH PRN PO for hives/itching/ anaphylaxis Last administered on 12/26/17at 20:25; Start 12/26/17 at 13:00 Epoetin Woo (Epogen Inj) 3,000 units UNSCH PRN IV PUSH WITH DIALYSIS Last administered on 12/28/17at 09:42; Start 12/26/17 at 13:00 Famotidine (Pepcid Inj) 10 mg Q12HR IV PUSH Last administered on 12/26/17at 08:06 ; Start 12/26/17 at 09:00; Stop 12/26/17 at 09:41; Status DC Gelatin (Gelfoam 12 Mm/7 Mm Top) 1 foam UNSCH PRN TOP SEE LABEL COMMENTS; Start 12/26/17 at 13:00 Gentamicin Sulfate (Gentamicin Inj) 20 mg UNSCH PRN OTHER WITH DIALYSIS Last administered on 12/28/17at 09:42; Start 12/26/17 at 13:00 Glucagon (Glucagon Inj) 1 mg UNSCH PRN OTHER HYPOGLYCEMIA-SEE COMMENTS; Start 12/25/17 at 21:30 Insulin Detemir (Levemir Inj) 5 units Q12HR SQ Last administered on 12/28/17at 08 :42; Start 12/27/17 at 21:00 Insulin Human Regular (NovoLIN R SUPPLEMENTAL SCALE) 1 ACHS SLIDING SCALE SQ Last administered on 12/28/17at 08:41; Start 12/26/17 at 08:00 Labetalol HCl (Trandate Inj) 10 mg Q1HR PRN IV PUSH SBP>140, DBP>90, HR>65; Start 12/26/17 at 09:45 Lactulose (Lactulose Liq) 30 ml DAILY PRN PO SEVERE CONSITIPATION; Start at 21:30 Levetriacetam (Keppra) 500 mg Q12HR PO Last administered on 12/28/17at 08:40; Start 12/26/17 at 09:00 Magnesium Hydroxide (Milk Of Magnesia Liq) 30 ml Q12H PRN PO Mild constipation ; Start 12/25/17 at 21:30 Mannitol (Mannitol Inj) 12.5 gm UNSCH PRN IV WITH DIALYSIS; Start 12/26/17 at 13 :00 Miscellaneous (Pill Splitter) 1 ea UNSCH PRN OTHER SEE LABEL COMMENTS; Start at 10:15 Miscellaneous Information ([facility]) 1 Q361D XX Last administered on 12/25/17at 21:30; Start 12/25/17 at 21:30 Mupirocin (Bactroban Nasal 2% Oint) 1 applic Taper BID EACH NARE Last administered on 12/28/17 08:41; Start 12/26/17 at 21:00; Stop 12/22/18 at 20:59 Nitroglycerin (Nitrostat Sl) 0.4 mg UNSCH PRN SL CHEST PAIN; Start 12/26/17 at 13:00 Ondansetron HCl (Zofran Odt) 4 mg UNSCH PRN PO WITH DIALYSIS; Start 12/26/17 at 13:45 Pantoprazole Sodium (Protonix) 20 mg DAILY PO Last administered on 12/28/17 08: 41; Start 12/27/17 at 09:00 Prednisone (Deltasone) 20 mg DAILY PO Last administered on 12/28/17 08:41; Start 12/26/17 at 09:00 Senna/Docusate Sodium (Teresa-Colace) 1 tab BID PO Last administered on 12/28/17at 08:41; Start 12/26/17 at 09:00 Sennosides (Senokot) 17.2 mg Q12H PRN PO Moderate constipation; Start 12/25/17 at 21:30 Sevelamer Carbonate (Renvela) 800 mg TIDAC PO Last administered on 12/28/17at 08: 40; Start 12/26/17 at 08:00 Sodium Chloride (NS Flush) 5 ml UNSCH PRN IV FLUSH WITH DIALYSIS; Start at 13:00 Temazepam (Restoril) 15 mg HS PRN PO INSOMNIA Last administered on 12/27/17at 20: 21; Start 12/25/17 at 21:30 Date of Insertion: Dec 25, 2017 Line: PICC Side: Right Location: Antecubital A/P Assessment and Plan A/P Tiny left frontal subdural hematoma Depression disorder NOS CT brain - The low-density extra-axial collections documented previously have essentially resolved but there is a questionable minimal high density material in the extra-axial space in the left frontal region. No midline shift, mass lesion, hemorrhage or acute infarction. Posterior Fossa: The cerebellum and brainstem demonstrate no acute abnormality. The 4th ventricle is midline. The cerebellopontine angle is within normal limits. Extracranial: There is a mucous retention cyst in the left maxillary antrum measuring 2.3 cm. Stable subcutaneous nodule is present on the anterior scalp measuring 10 mm. Skull: The calvaria is intact. No skull fracture. On levetiracetam 500 mg twice daily Repeat brain CT 63 /revealed resolution of tiny hematoma History of CHF with normal echocardiogram 11/26/17 Essential hypertension Hyperlipidemia History of right upper extremity DVT with negative ultrasound 12/11 History of left posterior tibial DVT Home medications include carvedilol and amlodipine and valsartan for hypertension. Resumed low-dose. Echocardiogram 12/11 revealed EF 55%. No regional wall motion analysis. Essentially normal echocardiogram hold anticoagulation for now due to cerebral bleed. History of COPD Nasal cannula to maintain saturations greater than equal to 92% Incentive spirometry while awake neb treatment Diabetes mellitus Chronic prednisone use continue levemir Novulin R sliding scale insulin high Accu-Cheks before meals at bedtime to maintain euglycemia Continue prednisone 20 mg p.o. daily/home medication End-stage renal disease on hemodialysis Thursday/Thursday/Thursday Hemodialysis Thursday/Thursday/Thursday Nephrology following. normocytic anemia History of DVT as above Chronic warfarin use Status post PCC at outside facility. No indication for transfusion of blood products at this time Currently holding warfarin/pharmacological therapeutical or preventative anticoagulation until okay with neurosurgery PT evaluate and treat Weight loss encouraged -DVT -SCD/holding pharmacological prophylaxis until okay with neurosurgery. for transfer to floor. Discharge Planning dc home within the next 24-48 hrs if stable and cleared by neurosurgery. case management for [facility]. Alexa Albarado MD Dec 28, 2017 11:02
--- NOTE | 2017-12-28 11:03 | HHI.FF ---
Face to Face Verification Diagnosis: (1) Sudural hygroma with probable acute hemorrhage Physical Therapy Order: Evaluate and Treat Home Health Nursing Order: Medical education Signs/symptoms of disease process Medication education-adverse effect Nursing assessment with vital signs I have seen patient Leanne Wen on 12/28/17. My clinical findings support the need for the requested home health care services because: Ltd mobility - disease progression I certify that my clinical findings support that this patient is homebound because: Unsteady gait/balance Alexa Albarado MD Dec 28, 2017 11:03
--- NOTE | 2017-12-28 12:43 | HHI.NPPN ---
Subjective History of Present Illness The patient is a 67 yo [place] female who was transported from [facility] in [place] for evaluation of suspected progressing SDH. She was treated at this facility for the same in early November, but was concerned for new issues as she was having progressive weakness and some confusion prompting ED visit to [place]. CT scan there showed residual left subdural collection demonstrating some hyperdense elements suggesting there may be some recurrent hemorrhage since previous exam but the collection measures only 5 mm in greatest thickness with no significant mass-effect or midline shift. She is seen in ICU setting A&O in NAD We have been consulted for HD management. She is an ESRD patient who dialyzes at [facility] under the care of Dr. Nunez. States last HD was 12/23 (missed 12/25). Typical HD 5h with UF around 3L She has a RIJ PermCath. 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 Been using RIJ PermCath for about 6 months per patient. Interval History Patient is seen during dialysis today. Dialysis PermCath appears to be working well. Patient had no verbal complaints. Objective Data Data 12/28/17 12/29/17 19:00 07:00 Output Total 3000 ml Balance -3000 ml Hemodialysis 3000 ml Vital Signs Date Time Temp Pulse Resp B/P (MAP) Pulse Ox O2 Delivery O2 Flow Rate FiO2 12/28/17 12:00 76 12/28/17 12:00 97.9 64 11 171/64 (99) 100 12/28/17 10:00 71 12/28/17 08:16 99 Nasal Cannula 3.00 12/28/17 08:00 98.2 70 19 146/67 (93) 100 12/28/17 08:00 70 12/28/17 07:00 93 Nasal Cannula 3.00 12/28/17 06:00 63 12/28/17 04:00 98.5 65 25 127/57 (80) 100 12/28/17 04:00 65 12/28/17 02:00 65 12/28/17 00:00 98.1 68 24 112/46 (68) 97 12/28/17 00:00 68 12/27/17 22:00 72 12/27/17 21:06 97 Nasal Cannula 2.00 12/27/17 20:00 74 12/27/17 20:00 99.5 74 28 112/68 (83) 97 12/27/17 20:00 97 Nasal Cannula 3.00 12/27/17 18:00 80 12/27/17 16:30 18 12/27/17 16:00 99.6 81 17 112/52 (72) 94 12/27/17 16:00 81 12/27/17 14:00 78 -: 12/28/17 0430 12/28/17 0430 Physical Exam General Appearance: No Acute Distress, Comfortable, Obese Eyes Eye Exam: Sclera White Pulmonary Resp Exam: Clear Bilaterally, Breath Sounds Equal, No Distress Cardiology CV Exam: Regular, Normal Sinus Rhythm Gastrointestinal/Abdomen GI Exam: Soft, Non-Tender Integumentary Skin Exam: Clear, Warm, Dry Extremeties Extremities Exam: Moderate Edema (Lymphedema lower extremities.) Neurologic Neuro Exam: Alert, Awake, Speech Clear, Moving All Extremities Psychiatric Psych Exam: Appropriate Responses Assessment/Plan Discussed Condition With: Patient Problem List: (1) ESRD (end stage renal disease) ICD Codes: N18.6 - End stage renal disease Plan: Patient seen during hemodialysis. She appears to be tolerating her treatment well. Discharge planning as per primary care physician. 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 Medications should be adjusted for the patient's ESRD. Avoid gadolinium. (2) Sudural hygroma with probable acute hemorrhage Tim Syed MD Dec 28, 2017 12:43
--- NOTE | 2017-12-28 15:37 | PD.WCN.NOT ---
Wound Consult Description: Received consult from Doctor Sophie for wound management of L buttock , R upper, R lower buttock and L foot Communicated with: GIA Nelson [facility] and Call placed to Doctor Verena for orders Recommendation: Please cleanse buttock with soap and water or remedy barrier wipes and pat dry. Apply Calazime skin protectant paste in a thick layer to to gluteal cleft and bilateral buttocks and leave open to air. Additional Information: Patient seen on [facility] for wound management of L buttock R upper buttock and L foot. Patient seen with [facility] and parts data writer. With minimal assist patient turned to L side for wound assessment. Bilateral buttocks is open to air. Per patient, she has had a wound on her buttock area before. R Buttocks presents with keloid scar tissue that is moist Small friction and moisture related partial thickness wounds are noted to the upper and lower R inner buttock areas. L buttock presents with peeling, denuded skin. Partial thickness to upper R buttock measures ~0.2cmx ~1cm x ~0.1cm. Partial thickness wound to R lower buttock measures ~1cm x ~0.2cm x ~0.1cm. Wounds are dry without drainage or odor and appear to be resolving. Applied thick layer of Calazime skin protectant paste to bilateral inner buttocks and gluteal cleft covering partial thickness wounds and scar tissue. Buttocks was then L open to air. Patient was instructed to turn from L side to R side to offload pressure from buttock area. Sara Jeffries [facility] Dec 28, 2017 15:37
[2017-12-28] MEDS ORDERED: HYDROmorphone HCL PF 2 MG/ML VIAL IV PUSH ONE (19:15)
[2017-12-28] MEDS: TEMAZEPAM 15 MG CAP PO PRN (20:11)
[2017-12-29] VITALS (7 sets, daily range): BP systolic 102–171; BP diastolic 46–79; PULSE 69–77; RESP 18–20; TEMP 97.1–97.9; O2SAT 90–97
[2017-12-29] MEDS: ACETAMINOPHEN/HYDROcodone 325 MG/7.5 MG TAB PO PRN ×2 (00:47→13:19)
[2017-12-29] MEDS: ACETAMINOPHEN 325 MG TAB PO PRN (02:09)
--- NOTE | 2017-12-29 06:44 | RADRPT ---
EXAM DATE: 12/29/2017 6:27 AM EDT AGE/SEX: 67 years / Female INDICATIONS: Confirm correct placement of PICC line CLINICAL DATA: This is the patient's subsequent encounter. Patient reports that signs and symptoms h ave been present for 4 - 6 days and indicates a pain score of 0/10. MEDICAL/SURGICAL HISTORY: Renal failure, chronic. Congestive heart failure. subdural hematoma . PICC line, Vas cath, AV shunt left arm COMPARISON: [facility], CHEST SINGLE AP, 12/26/2017. . FINDINGS: There is some scattered infiltrates in both lower lungs. There is no pneumothorax. There are 2 centra l lines in place. There is a right-sided PICC line appears to be in good position. There is no pneumo thorax. The bony structures are stable. No significant changes compared to the prior study. CONCLUSION: Right PICC line appears to be in good position. No significant changes compared to the prior study. Electronically signed by: Rogelio Cline MD 12/29/2017 6:43 AM EDT
[2017-12-29] MEDS: RESP: ALBUTEROL 2.5 MG/IPRATROPIUM 0.5 MG NEB (SCH) NEB ×2 (07:36→14:12)
[2017-12-29] MEDS: MUPIROCIN 2% OINT 1 APPLIC/GM SYR EACH NARE SCH (09:02)
[2017-12-29] MEDS: INSULIN NovoLIN REGULAR SUPPLEMENTAL SCALE SQ SCH ×2 (09:02→13:22)
[2017-12-29] MEDS: predniSONE 20 MG TAB PO SCH (09:03)
[2017-12-29] MEDS: levETIRAcetam 500 MG TAB PO SCH (09:03)
[2017-12-29] MEDS: amLODIPine BESYLATE 5 MG TAB PO SCH (09:03)
[2017-12-29] MEDS: SEVELAMER CARBONATE 800 MG TAB PO SCH ×2 (09:03→13:19)
[2017-12-29] MEDS: PANTOPRAZOLE SOD 20 MG DELAYED RELEASE TAB PO SCH (09:03)
[2017-12-29] MEDS: DOCUSATE SODIUM 50 MG/SENNA 8.6 MG TAB PO SCH (09:03)
[2017-12-29] MEDS: CARVEDILOL 3.125 MG TAB PO SCH (09:04)
[2017-12-29] MEDS: INSULIN DETEMIR 100 UNITS/ML VIAL SQ SCH (09:16)
[2017-12-29] MEDS: SODIUM CHLORIDE 0.9% FLUSH 10 ML FLUSH IV FLUSH SCH (09:16)
--- NOTE | 2017-12-29 11:09 | HHI.PR ---
Subjective Remarks in no acute distress. says that she couldn't sleep last night. however is not complaining of pain or headache. d/w the RN. Objective Vitals Vital Signs Date Time Temp Pulse Resp B/P (MAP) Pulse Ox O2 Delivery O2 Flow Rate FiO2 12/29/17 08:02 97.7 73 19 104/46 (65) 95 12/29/17 07:40 94 Nasal Cannula 2.00 12/29/17 07:03 Nasal Cannula 3.00 12/29/17 05:19 97.8 69 18 121/54 (76) 97 12/29/17 00:24 97.8 69 18 114/79 (91) 95 12/28/17 21:00 Nasal Cannula 3.00 12/28/17 20:46 95 Nasal Cannula 2.00 12/28/17 20:18 98.2 70 18 114/56 (75) 95 12/28/17 18:10 18 12/28/17 17:07 97.9 71 20 168/74 (105) 97 12/28/17 16:00 98.3 67 15 168/73 (104) 99 12/28/17 16:00 64 12/28/17 14:00 71 12/28/17 12:00 76 12/28/17 12:00 97.9 64 11 171/64 (99) 100 I/O 12/28/17 12/28/17 12/28/17 12/29/17 12/29/17 12/29/17 07:00 15:00 23:00 07:00 15:00 23:00 Intake Total 240 ml 240 ml Output Total 0 ml 3000 ml Balance 240 ml -3000 ml 240 ml Intake Oral 240 ml 240 ml Output Urine Total 0 ml Hemodialysis 3000 ml Result Diagram: 12/28/17 0430 12/28/17 0430 Imaging Last Impressions Chest X-Ray 12/29/17 0000 Signed Impressions: CONCLUSION: Right PICC line appears to be in good position. No significant changes compared to the prior study. Head CT 12/27/17 0000 Signed Impressions: CONCLUSION: 1. No extra-axial fluid collections are identified on the current exam. Stable atrophic white matter changes. Objective Remarks GENERAL: This is a well-nourished, well-developed patient, in no apparent distress. CARDIOVASCULAR: Regular rate and regular rhythm without murmurs, gallops, or rubs. RESPIRATORY: Clear to auscultation. Breath sounds equal bilaterally. No wheezes , rales, or rhonchi. GASTROINTESTINAL: Abdomen soft, non-tender, nondistended. Normal, active bowel sounds MUSCULOSKELETAL: Extremities without clubbing, cyanosis, or edema. NEURO: Alert & Oriented x4 to person, place, time, situation. Moves all ext x4 Medications and IVs Inpatient Medications Acetaminophen (Tylenol) 650 mg UNSCH PRN PO for headach, pain, temp > 101F; Start 12/26/17 at 13:00 Acetaminophen/ Hydrocodone Bitart ([place] 7.5-325 Mg) 1 tab Q4H PRN PO pain 7- 10 Last administered on 12/29/17at 00:47; Start 12/26/17 at 22:45 Albumin Human 100 ml @ 60 mls/hr UNSCH PRN IV WITH DIALYSIS; Start 12/26/17 at 13:00 Albuterol Sulfate (Albuterol Neb) 2.5 mg Q2HR NEB PRN NEB dyspnea; Start at 09:45 Albuterol/ Ipratropium (Duoneb Neb) 1 ampule Q6HR WHILE AWAKE NEB NEB Last administered on 12/29/17at 07:36; Start 12/26/17 at 14:00 Amlodipine Besylate (Norvasc) 2.5 mg DAILY PO Last administered on 12/29/17at 09: 03; Start 12/27/17 at 09:00 Bisacodyl (Dulcolax Supp) 10 mg DAILY PRN RECTAL SEVERE CONSITIPATION; Start at 21:30 Bupropion HCl (Wellbutrin Sr) 150 mg DAILY PO ; Start 12/28/17 at 09:00; Stop 12/28/17 at 09:00; Status DC Carvedilol (Coreg) 3.125 mg Q12HR PO Last administered on 12/29/17at 09:04; Start 12/26/17 at 21:00 Chlorhexidine Gluconate (Chlorhexidine 2% Cloth) 3 pack UNSCH PRN TOP HYGIENIC CARE; Start 12/25/17 at 21:30 Clonidine (Catapres) 0.1 mg UNSCH PRN PO for BP > 180/100 X 2 readings; Start 12/26/17 at 13:00 Dextrose (D50w (Vial) Inj) 50 ml UNSCH PRN IV PUSH HYPOGLYCEMIA-SEE COMMENTS; Start 12/25/17 at 21:30 Diphenhydramine HCl (Benadryl) 25 mg UNSCH PRN PO for hives/itching/ anaphylaxis Last administered on 12/26/17at 20:25; Start 12/26/17 at 13:00 Epoetin Woo (Epogen Inj) 3,000 units UNSCH PRN IV PUSH WITH DIALYSIS Last administered on 12/28/17at 09:42; Start 12/26/17 at 13:00 Famotidine (Pepcid Inj) 10 mg Q12HR IV PUSH Last administered on 12/26/17at 08:06 ; Start 12/26/17 at 09:00; Stop 12/26/17 at 09:41; Status DC Gelatin (Gelfoam 12 Mm/7 Mm Top) 1 foam UNSCH PRN TOP SEE LABEL COMMENTS; Start 12/26/17 at 13:00 Gentamicin Sulfate (Gentamicin Inj) 20 mg UNSCH PRN OTHER WITH DIALYSIS Last administered on 12/28/17at 09:42; Start 12/26/17 at 13:00 Glucagon (Glucagon Inj) 1 mg UNSCH PRN OTHER HYPOGLYCEMIA-SEE COMMENTS; Start 12/25/17 at 21:30 Hydromorphone HCl (Dilaudid Pf Inj) 0.2 mg ONCE ONCE IV PUSH Last administered on 12/28/17at 20:12; Start 12/28/17 at 19:15; Stop 12/28/17 at 19:17; Status DC Insulin Detemir (Levemir Inj) 5 units Q12HR SQ Last administered on 12/29/17 09 :16; Start 12/27/17 at 21:00 Insulin Human Regular (NovoLIN R SUPPLEMENTAL SCALE) 1 ACHS SLIDING SCALE SQ Last administered on 12/29/17at 09:02; Start 12/26/17 at 08:00 Labetalol HCl (Trandate Inj) 10 mg Q1HR PRN IV PUSH SBP>140, DBP>90, HR>65; Start 12/26/17 at 09:45 Lactulose (Lactulose Liq) 30 ml DAILY PRN PO SEVERE CONSITIPATION; Start at 21:30 Levetriacetam (Keppra) 500 mg Q12HR PO Last administered on 12/29/17 09:03; Start 12/26/17 at 09:00 Magnesium Hydroxide (Milk Of Magnesia Liq) 30 ml Q12H PRN PO Mild constipation ; Start 12/25/17 at 21:30 Mannitol (Mannitol Inj) 12.5 gm UNSCH PRN IV WITH DIALYSIS; Start 12/26/17 at 13 :00 Miscellaneous (Pill Splitter) 1 ea UNSCH PRN OTHER SEE LABEL COMMENTS; Start at 10:15 Miscellaneous Information ([facility] [place] Nursing Information) 1 Q361D XX Last administered on 12/25/17at 21:30; Start 12/25/17 at 21:30 Mupirocin (Bactroban Nasal 2% Oint) 1 applic Taper BID EACH NARE Last administered on 12/29/17at 09:02; Start 12/26/17 at 21:00; Stop 12/22/18 at 20:59 Nitroglycerin (Nitrostat Sl) 0.4 mg UNSCH PRN SL CHEST PAIN; Start 12/26/17 at 13:00 Ondansetron HCl (Zofran Odt) 4 mg UNSCH PRN PO WITH DIALYSIS; Start 12/26/17 at 13:45 Pantoprazole Sodium (Protonix) 20 mg DAILY PO Last administered on 12/29/17 09: 03; Start 12/27/17 at 09:00 Prednisone (Deltasone) 20 mg DAILY PO Last administered on 12/29/17at 09:03; Start 12/26/17 at 09:00 Senna/Docusate Sodium (Teresa-Colace) 1 tab BID PO Last administered on 12/29/17at 09:03; Start 12/26/17 at 09:00 Sennosides (Senokot) 17.2 mg Q12H PRN PO Moderate constipation; Start 12/25/17 at 21:30 Sevelamer Carbonate (Renvela) 800 mg TIDAC PO Last administered on 12/29/17at 09: 03; Start 12/26/17 at 08:00 Sodium Chloride (NS Flush) 5 ml UNSCH PRN IV FLUSH WITH DIALYSIS; Start at 13:00 Temazepam (Restoril) 15 mg HS PRN PO INSOMNIA Last administered on 12/28/17at 20: 11; Start 12/25/17 at 21:30 Date of Insertion: Dec 25, 2017 Line: PICC Side: Right Location: Antecubital A/P Assessment and Plan A/P Tiny left frontal subdural hematoma Depression disorder NOS CT brain - The low-density extra-axial collections documented previously have essentially resolved but there is a questionable minimal high density material in the extra-axial space in the left frontal region. No midline shift, mass lesion, hemorrhage or acute infarction. Posterior Fossa: The cerebellum and brainstem demonstrate no acute abnormality. The 4th ventricle is midline. The cerebellopontine angle is within normal limits. Extracranial: There is a mucous retention cyst in the left maxillary antrum measuring 2.3 cm. Stable subcutaneous nodule is present on the anterior scalp measuring 10 mm. Skull: The calvaria is intact. No skull fracture. On levetiracetam 500 mg twice daily Repeat brain CT 63 /revealed resolution of tiny hematoma History of CHF with normal echocardiogram 11/26/17 Essential hypertension Hyperlipidemia History of right upper extremity DVT with negative ultrasound 12/11 Home medications include carvedilol and amlodipine and valsartan for hypertension. Resumed low-dose. Echocardiogram 12/11 revealed EF 55%. No regional wall motion analysis. Essentially normal echocardiogram hold anticoagulation for now due to cerebral bleed. History of COPD Nasal cannula to maintain saturations greater than equal to 92% Incentive spirometry while awake neb treatment Diabetes mellitus Chronic prednisone use continue levemir Novulin R sliding scale insulin high Accu-Cheks before meals at bedtime to maintain euglycemia Continue prednisone 20 mg p.o. daily/home medication End-stage renal disease on hemodialysis Thursday/Thursday/Thursday Hemodialysis Thursday/Thursday/Thursday Nephrology following. normocytic anemia History of DVT as above Chronic warfarin use Status post PCC at outside facility. No indication for transfusion of blood products at this time Currently holding warfarin/pharmacological therapeutical or preventative anticoagulation until okay with neurosurgery PT evaluate and treat Weight loss encouraged -DVT -SCD/holding pharmacological prophylaxis until okay with neurosurgery. Discharge Planning dc home within the next 24 hrs if cleared by neurosurgery. f/u; pcp, nephrology. see med list. d/w the patient, RN and ( pcp). Alexa Albarado MD Dec 29, 2017 11:09
[2017-12-29] MEDS ORDERED: AMLO5 PO (11:11)
[2017-12-29] MEDS ORDERED: CARV3.125 PO (11:11)
--- NOTE | 2017-12-29 11:15 | HHI.DS ---
Discharge Summary Admission Date Dec 25, 2017 at 18:15 Discharge Date: Dec 29, 2017 Admitting Diagnosis subdural hematoma (1) Sudural hygroma with probable acute hemorrhage Diagnosis: Principal Procedures none Brief History - From Admission 67-year-old female who was just here November 25 for subdural hematoma, presented today to [facility] emergency department for an evaluation of generalized weakness with onset of one day prior to presentation. The patient states she get dialyzed on Thursday. The patient says she was having a shortness of breath and fatigue. She denies any chest pain, fevers or any other pertinent signs and symptoms. The patient was Coumadin at home and her INR at the [facility] was found to be 7.5. The CT of the head obtained at the [facility] shows previously demonstrated chronic right subdural hematoma appears essentially resolved. Residual left subdural collection demonstrates some hyperdense elements suggesting there may be some recurrent hemorrhage since previous exam but the collection measures only 5 mm in greatest thickness with no significant mass-effect or midline shift. Hospice the patient was transferred here for higher level of care and neurosurgical evaluation, shortly after the patient has received [facility]. CBC/BMP: 12/28/17 0430 12/28/17 0430 Significant Findings Laboratory Tests Test 12/26/17 13:26 12/27/17 04:50 12/28/17 04:30 Phosphorus Level 5.0 MG/DL (2.5-4.9) Iron Level 28 MCG/DL (50-170) Total Iron Binding Capacity 167 MCG/DL (250-450) Percent Iron Saturation 16.8 % (20-50) Ferritin 424 NG/ML (8-252) 25-Hydroxy Vitamin D Total 22.4 ng/ML (30-100) Parathyroid Hormone (Intact) 146.4 PG/ML (12.4-76.8) White Blood Count 3.7 TH/MM3 (4.0-11.0) Red Blood Count 2.41 MIL/MM3 (4.00-5.30) 2.31 MIL/MM3 (4.00-5.30) Hemoglobin 7.7 GM/DL (11.6-15.3) 7.4 GM/DL (11.6-15.3) Hematocrit 22.9 % (35.0-46.0) 21.8 % (35.0-46.0) Lymphocytes # (Auto) 0.8 TH/MM3 (1.0-4.8) Prothrombin Time 12.3 SEC (9.8-11.6) 11.9 SEC (9.8-11.6) Activated Partial Thromboplast Time 30.4 SEC (24.3-30.1) Creatinine 4.83 MG/DL (0.50-1.00) 6.28 MG/DL (0.50-1.00) Random Glucose 171 MG/DL (74-106) 195 MG/DL (74-106) Total Protein 4.9 GM/DL (6.4-8.2) Albumin 2.0 GM/DL (3.4-5.0) 2.1 GM/DL (3.4-5.0) Calcium Level 7.7 MG/DL (8.5-10.1) 8.2 MG/DL (8.5-10.1) Aspartate Amino Transf (AST/SGOT) 3 U/L (15-37) Alanine Aminotransferase (ALT/SGPT) 9 U/L (10-53) Estimat Glomerular Filtration Rate 9 ML/MIN (>89) 7 ML/MIN (>89) Blood Urea Nitrogen 31 MG/DL (7-18) Imaging Last Impressions Chest X-Ray 12/29/17 0000 Signed Impressions: CONCLUSION: Right PICC line appears to be in good position. No significant changes compared to the prior study. Head CT 12/27/17 0000 Signed Impressions: CONCLUSION: 1. No extra-axial fluid collections are identified on the current exam. Stable atrophic white matter changes. PE at Discharge GENERAL: This is a well-nourished, well-developed patient, in no apparent distress. CARDIOVASCULAR: Regular rate and regular rhythm without murmurs, gallops, or rubs. RESPIRATORY: Clear to auscultation. Breath sounds equal bilaterally. No wheezes , rales, or rhonchi. GASTROINTESTINAL: Abdomen soft, non-tender, nondistended. Normal, active bowel sounds MUSCULOSKELETAL: Extremities without clubbing, cyanosis, or edema. NEURO: Alert & Oriented x4 to person, place, time, situation. Moves all ext x4 Hospital Course Tiny left frontal subdural hematoma Depression disorder NOS CT brain - The low-density extra-axial collections documented previously have essentially resolved but there is a questionable minimal high density material in the extra-axial space in the left frontal region. No midline shift, mass lesion, hemorrhage or acute infarction. Posterior Fossa: The cerebellum and brainstem demonstrate no acute abnormality. The 4th ventricle is midline. The cerebellopontine angle is within normal limits. Extracranial: There is a mucous retention cyst in the left maxillary antrum measuring 2.3 cm. Stable subcutaneous nodule is present on the anterior scalp measuring 10 mm. Skull: The calvaria is intact. No skull fracture. On levetiracetam 500 mg twice daily Repeat brain CT 63 /revealed resolution of tiny hematoma History of CHF with normal echocardiogram 11/26/17 Essential hypertension Hyperlipidemia History of right upper extremity DVT with negative ultrasound 12/11 Home medications include carvedilol and amlodipine and valsartan for hypertension. Resumed low-dose. Echocardiogram 12/11 revealed EF 55%. No regional wall motion analysis. Essentially normal echocardiogram hold anticoagulation for now due to cerebral bleed. History of COPD Nasal cannula to maintain saturations greater than equal to 92% Incentive spirometry while awake neb treatment Diabetes mellitus Chronic prednisone use continue levemir Novulin R sliding scale insulin high Accu-Cheks before meals at bedtime to maintain euglycemia Continue prednisone 20 mg p.o. daily/home medication End-stage renal disease on hemodialysis Thursday/Thursday/Thursday Hemodialysis Thursday/Thursday/Thursday Nephrology following. normocytic anemia History of DVT as above Chronic warfarin use Status post PCC at outside facility. No indication for transfusion of blood products at this time Currently holding warfarin/pharmacological therapeutical or preventative anticoagulation until okay with neurosurgery PT evaluate and treat Weight loss encouraged -DVT -SCD/holding pharmacological prophylaxis until okay with neurosurgery. Pt Condition on Discharge: Fair Discharge Disposition: Disch w/ Home Health Serv Discharge Time: <= 30 minutes Discharge Instructions DIET: Follow Instructions for: Diabetic Diet, Dialysis Diet Activities you can perform: Regular-No Restrictions Alexa Albarado MD Dec 29, 2017 11:15
[2017-12-29] MEDS ORDERED: DEXTROSE 50% IN WATER 50 ML VIAL(D50) IV PUSH PRN (14:00)
[2017-12-29] MEDS ORDERED: GLUCAGON 1 MG/ML VIAL OTHER PRN (14:00)
[2017-12-29] MEDS ORDERED: INSULIN ASPART SUPPLEMENTAL SCALE SQ SCH (17:00)
== END 2017-12-29 18:20 | disposition home health service (06) | DRG 64 ==
LOC: N03A 18:15 → N05B 12-28 17:02
PROVIDERS: ADMIT Internal Medicine; ATTEND Internal Medicine
PROC: 5A1D70Z Performance of Urinary Filtration, Intermittent, Less than 6 Hours Per Day (ICD-10-PCS; principal; 2017-12-26)
DX: I62.02 Nontraumatic subacute subdural hemorrhage (principal); N18.6 End stage renal disease; I12.0 Hypertensive chronic kidney disease with stage 5 chronic kidney disease or end stage renal disease; D68.9 Coagulation defect, unspecified; E11.22 Type 2 diabetes mellitus with diabetic chronic kidney disease; Z68.41 Body mass index [BMI] 40.0-44.9, adult; Z79.4 Long term (current) use of insulin; E66.01 Morbid (severe) obesity due to excess calories; J44.9 Chronic obstructive pulmonary disease, unspecified; Z99.2 Dependence on renal dialysis; F32.9 Major depressive disorder, single episode, unspecified; E78.5 Hyperlipidemia, unspecified; D64.9 Anemia, unspecified; E83.39 Other disorders of phosphorus metabolism; Z86.718 Personal history of other venous thrombosis and embolism; Z79.01 Long term (current) use of anticoagulants; Z79.52 Long term (current) use of systemic steroids
CPT/HCPCS: 70450; 71045; 80053; 80069; 80074; 82306; 82728; 82948; 83540; 83550; 83735; 83970; 84100; 85025; 85027; 85610; 85730; 87641; 90935; 94150; 94640; 94664; 96374; 96375; J1170; J1580; J7030; J7512; Q4081